=== PATIENT | male | born 1975 | race Caucasian/White ===

== ENCOUNTER → 2017-04-04 07:47 | Outpatient (CLI) | payer BC, MEDICAID, SELFPAY ==
--- NOTE | 2017-04-04 10:22 | EEG ---
- Electroencephalogram This is a right lower extremity EMG and nerve conduction study performed on this 41-year-old male with intermittent abnormal sensations in the second third and fourth digits of his right foot usually at rest, but also when he is ambulatory. He has no back pain, and is healthy otherwise. Symptoms been present for approximately 6 months. Right lower extremity sensory and motor nerve conduction study is performed. The sural sensory responses normal. The motor responses from the common peroneal and tibial nerves are normal. Peroneal and tibial motor responses are normal and the sensory response from the medial and lateral plantar nerves are also normal. H reflex responses are normal. Right lower extremity needle electromyography was performed. Muscles evaluated included the extensor digitorum brevis, abductor hallucis, medial gastrocnemius, anterior tibialis, vastus lateralis and vastus medialis muscles. All muscles demonstrated normal insertional activity with absence of pathologic spontaneous activity. Motor unit potential recruitment pattern and amplitude was normal in all muscles tested. Impression: Normal electrophysiologic studies of the right lower extremity. Further investigation could include neuroimaging of the BUSINESS ASSISTANT if this is felt to be clinically indicated.
--- NOTE | 2017-04-04 10:25 | EEG_ITS ---
- Electroencephalogram This is a right lower extremity EMG and nerve conduction study performed on this 41-year-old male with intermittent abnormal sensations in the second third and fourth digits of his right foot usually at rest, but also when he is ambulatory. He has no back pain, and is healthy otherwise. Symptoms been present for approximately 6 months. Right lower extremity sensory and motor nerve conduction study is performed. The sural sensory responses normal. The motor responses from the common peroneal and tibial nerves are normal. Peroneal and tibial motor responses are normal and the sensory response from the medial and lateral plantar nerves are also normal. H reflex responses are normal. Right lower extremity needle electromyography was performed. Muscles evaluated included the extensor digitorum brevis, abductor hallucis, medial gastrocnemius , anterior tibialis, vastus lateralis and vastus medialis muscles. All muscles demonstrated normal insertional activity with absence of pathologic spontaneous activity. Motor unit potential recruitment pattern and amplitude was normal in all muscles tested. Impression: Normal electrophysiologic studies of the right lower extremity. Further investigation could include neuroimaging of the POULTRY PROCESSOR if this is felt to be clinically indicated.
--- NOTE | 2017-04-04 10:33 | NEURO_ITS ---
NCS and/or EMG Patient Report Ordering Doctor: Dianna Littlejohn DATE OF SERVICE: 04/04/17 This is a right lower extremity EMG and nerve conduction study performed on this 41-year-old male with intermittent abnormal sensations in the second third and fourth digits of his right foot usually at rest, but also when he is ambulatory. He has no back pain, and is healthy otherwise. Symptoms been present for approximately 6 months. Right lower extremity sensory and motor nerve conduction study is performed. The sural sensory responses normal. The motor responses from the common peroneal and tibial nerves are normal. Peroneal and tibial motor responses are normal and the sensory response from the medial and lateral plantar nerves are also normal. H reflex responses are normal. Right lower extremity needle electromyography was performed. Muscles evaluated included the extensor digitorum brevis, abductor hallucis, medial gastrocnemius , anterior tibialis, vastus lateralis and vastus medialis muscles. All muscles demonstrated normal insertional activity with absence of pathologic spontaneous activity. Motor unit potential recruitment pattern and amplitude was normal in all muscles tested. Impression: Normal electrophysiologic studies of the right lower extremity. Further investigation could include neuroimaging of the SHOE REPAIRER APPRENTICE if this is felt to be clinically indicated.
== END ==
DX: R20.0 Anesthesia of skin (principal)
CPT/HCPCS: 95886; 95910

== ENCOUNTER → 2017-04-11 08:23 | Outpatient (CLI) | payer BC, MEDICAID, SELFPAY ==
[2017-04-11 09:47] LABS: Absolute Lymphocyte Count 1.76 X10^3/ul (0.83-4.51); Absolute Neutrophil Count 1.8 X10^3/uL (2.0-7.7); Basophil# 0.08 X10^3/uL; Basophil% 1.9 % (0-1); Eosinophil# 0.14 X10^3/uL; Eosinophils% 3.4 % (0-5); Hematocrit 42.5 % (40-54); Lymphocyte # 1.76 X10^3/ul (4.0); Lymphocyte % 42.3 % (19-41); Mean Corp Hgb Conc 35.3 g/gl (32-36); Mean Corpuscular Hgb 31.8 pg (27.0-32.0); Mean Corpuscular Volume 90.2 fL (80-94); Mean Platelet Vol. 10.3 fl (6.2-12.0); Monocyte# 0.36 X10^3/uL; Monocyte% 8.7 % (0-10); Neutrophil % 43.2 % (47-70); POSITIVE COUNT NO; POSITIVE DIFFERENTIAL NO; POSITIVE MORPHOLOGY NO; Platelet Count 258 K/mm3 (150-450); RBC Distribution Width CV 12.8 % (11.6-14.6); RBC Distribution Width SD 41.6 fl (35.1-43.9); Red Blood Count 4.71 M/mm3 (4.6-6.2); White Blood Count 4.2 K/mm3 (4.4-11.0)
[2017-04-11 11:07] LABS: AST(SGOT) 20 U/L (15-37); Alanine Aminotransfer ALT/SGPT 42 U/L (16-61); Albumin, Serum 3.8 g/dL (3.2-5.0); Alkaline Phosphatase 96 U/L (45-117); Anion Gap 8 (5-15); BUN 17 mg/dL (7-18); BUN/Creat Ratio 20.5 RATIO (10-20); Bilirubin, Direct 0.06 mg/dL (0.00-0.30); Chloride 109 mmol/L (98-107); Creatinine, Serum 0.83 mg/dL (0.70-1.30); EST Glomerular Filtration Rate 107 mL/min (>60); Est Glom Filt Rate - Afr Amer 130 mL/min (>60); Globulin 3.6 g/dL (2.2-4.2); Glucose 121 mg/dL (74-106); Potassium 3.7 mmol/L (3.5-5.1); Protein, Total 7.4 g/dL (6.4-8.2); Sodium Level 142 mmol/L (136-145)
[2017-04-13 09:32] LABS: HIV-1 RNA by PCR, Quant. < 20 copies/mL (.)
[2017-04-16 01:50] LABS: Rapid Plasmin Reagin (RPR) REACTIVE (NONREACTIVE)
== END ==
PROVIDERS: Visit Provider Internal Medicine Infectious Disease
DX: B20 Human immunodeficiency virus [HIV] disease (principal)
CPT/HCPCS: 80048; 80076; 85025; 86592; 87536

== ENCOUNTER 2017-05-04 07:05 | Emergency (ER) | payer BC, MEDICAID, SELFPAY ==
[2017-05-04 07:05] VITALS: BP 156/98; PULSE 92; RESP 18; TEMP 36.4; O2SAT 100; BMI 33.9
[2017-05-04 07:13] VITALS: BP 96/75; PULSE 91; RESP 14; O2SAT 100
[2017-05-04 07:20] LABS: Bedside Glucose 105 mg/dL (70-110)
--- NOTE | 2017-05-04 07:34 | CT_ITS ---
STUDY: CT BRAIN WITHOUT CONTRAST REASON FOR EXAM: Male, 41 years old. Right arm numbness RADIATION DOSAGE (If Supplied By Facility): CTDIvol = ( 44.99 ) mGy, DLP = ( 745.49 ) mGycm TECHNIQUE: Transaxial CT imaging of the brain was performed without administration of intravenous contrast material. Individualized dose optimization techniques were used for this CT. COMPARISON: 01/09/2015 FINDINGS: Normal soft tissue structures. Normal calvarium. Normal size ventricles and extra-axial spaces for the patient's age. Normal white matter tracts of the cerebral hemispheres. Normal basal ganglia and thalami. Normal brainstem. Normal cerebellum. There is no intracranial hemorrhage. There are no findings of an acute ischemic infarction. There is mucoperiosteal inflammatory disease of the paranasal sinuses consistent with mild chronic sinusitis. CT/Brain/Head without Contrast IMPRESSION: Normal unenhanced CT scan of the brain. Paranasal sinus disease Electronically Signed: Kyle Paris DO at 8:24 EST Tel , Service support ,
--- NOTE | 2017-05-04 07:34 | EKG12_ITS ---
Test Reason : NUMBNESS Blood Pressure : / mmHG Vent. Rate : 086 BPM Atrial Rate : 086 BPM P-R Int : 168 ms QRS Dur : 104 ms QT Int : 354 ms P-R-T Axes : 014 004 030 degrees QTc Int : 423 ms Normal sinus rhythm Normal ECG Confirmed by ISAURO GIL, SHANTA ([id number]), newspaper managing editor FER GOLDEN ([id number]) on 05/08/2017 2:29:49 PM Referred By: WOLFGANG/JONO Confirmed By:SHANTA BOX MD
[2017-05-04 07:50] LABS: Absolute Lymphocyte Count 2.33 X10^3/ul (0.83-4.51); Absolute Neutrophil Count 4.6 X10^3/uL (2.0-7.7); Basophil# 0.04 X10^3/uL; Basophil% 0.5 % (0-1); Eosinophil# 0.19 X10^3/uL; Eosinophils% 2.5 % (0-5); Hematocrit 43.9 % (40-54); Hemoglobin 15.5 g/dl (13.0-16.5); Lymphocyte # 2.33 X10^3/ul (4.0); Lymphocyte % 30.1 % (19-41); Mean Corp Hgb Conc 35.3 g/gl (32-36); Mean Corpuscular Hgb 32.4 pg (27.0-32.0); Mean Corpuscular Volume 91.6 fL (80-94); Mean Platelet Vol. 9.9 fl (6.2-12.0); Monocyte# 0.55 X10^3/uL; Monocyte% 7.1 % (0-10); Neutrophil # 4.62 X10^3/uL (2.7-7.7); Neutrophil % 59.5 % (47-70); Platelet Count 237 K/mm3 (150-450); RBC Distribution Width CV 12.7 % (11.6-14.6); RBC Distribution Width SD 42.4 fl (35.1-43.9); Red Blood Count 4.79 M/mm3 (4.6-6.2); White Blood Count 7.8 K/mm3 (4.4-11.0)
[2017-05-04 07:51] LABS: POSITIVE COUNT NO; POSITIVE DIFFERENTIAL NO; POSITIVE MORPHOLOGY NO
--- NOTE | 2017-05-04 07:55 | RAD_ITS ---
STUDY: X-RAY CHEST REASON FOR EXAM: Male, 41 years old. Numbness down the right arm TECHNIQUE: PA and lateral views of the chest. COMPARISON: 03/31/2016 FINDINGS: The lungs are clear and expanded. There is no demonstrated pleural abnormality. Normal size heart. Normal mediastinum and robert. Normal visualized pulmonary arteries. Normal visualized aortic arch and descending thoracic aorta. Normal visualized thoracic spine. Normal visualized ribs, clavicles, and shoulders. There is no demonstrated abnormality of the visualized soft tissue structures of the upper abdomen. RAD/Chest PA and Lateral IMPRESSION: Normal x-ray examination of the chest. Electronically Signed: Kyle Paris DO at 8:23 EST Tel , Service support ,
[2017-05-04 07:59] LABS: ALB/GLOB Ratio 1.1 RATIO (0.9-2.4); AST(SGOT) 22 U/L (15-37); Alanine Aminotransfer ALT/SGPT 41 U/L (16-61); Alkaline Phosphatase 106 U/L (45-117); Anion Gap 9 (5-15); BUN 13 mg/dL (7-18); BUN/Creat Ratio 16.4 RATIO (10-20); Calcium,Total 8.6 mg/dL (8.5-10.1); Chloride 108 mmol/L (98-107); EST Glomerular Filtration Rate 113 mL/min (>60); Est Glom Filt Rate - Afr Amer 137 mL/min (>60); Estimated Creatinine Clearance 108.55 ml/min; Globulin 3.8 g/dL (2.2-4.2); Glucose 107 mg/dL (74-106); Potassium 4.1 mmol/L (3.5-5.1); Protein, Total 7.8 g/dL (6.4-8.2); Sodium Level 140 mmol/L (136-145)
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
[2017-05-04 08:21] VITALS: BP 118/91; PULSE 98; RESP 22; O2SAT 94
[2017-05-04 09:10] VITALS: BP 142/91; PULSE 89; RESP 17; O2SAT 96
[2017-05-04 09:16] LABS: Bacteria 0 SEEN /hpf (None Seen); Mucous, Urine 0 SEEN /hpf (<or=2+); Red Blood Cells-Urine 0 SEEN /hpf (0-5); Squamous Epithelial Cells - UA 0 SEEN /hpf (0-5); White Blood Cells 0 SEEN /hpf (0-5)
[2017-05-04 09:19] LABS: Color, Urine Yellow (Yellow); Glucose, Dipstick Normal (Normal); Ketone-Dipstick Negative (Negative); Leukocyte Esterase-Dipstick Negative /ul (Negative); Nitrite-Dipstick Negative (Negative); Occult Blood-Urine Negative /ul (Negative); Protein-Dipstick Negative (Negative); Urine Bilirubin Dipstick Negative (Negative); Urine Clarity Clear (Clear); Urine Urobilinogen Normal (Normal)
[2017-05-04 10:20] VITALS: BP 121/97; PULSE 96; RESP 18; O2SAT 97
== END 2017-05-04 10:25 | disposition home or self-care (01) ==
PROVIDERS: Emergency Provider Emergency Medicine
DX: R20.2 Paresthesia of skin (principal); R32 Unspecified urinary incontinence; R51 Headache; I10 Essential (primary) hypertension; B20 Human immunodeficiency virus [HIV] disease; Z79.899 Other long term (current) drug therapy
CPT/HCPCS: 70450; 71046; 80053; 81001; 82962; 85025; 93005; 99284; A4216

== ENCOUNTER 2017-10-25 15:10 | Emergency (ER) | payer BC, SELFPAY ==
[2017-10-25 15:11] VITALS: BP 142/95; PULSE 110; RESP 16; TEMP 37.1; O2SAT 98
[2017-10-25 15:16] VITALS: BMI 36.9
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
[2017-10-25 17:39] VITALS: BP 143/89; PULSE 84; RESP 16; O2SAT 98
== END 2017-10-25 17:39 | disposition home or self-care (01) ==
LOC: ED 16:33
PROVIDERS: Emergency Provider Emergency Medicine
DX: S16.1XXA Strain of muscle, fascia and tendon at neck level, initial encounter (principal); S46.911A Strain of unspecified muscle, fascia and tendon at shoulder and upper arm level, right arm, initial encounter; I10 Essential (primary) hypertension; E78.00 Pure hypercholesterolemia, unspecified; B20 Human immunodeficiency virus [HIV] disease; Z87.891 Personal history of nicotine dependence; Z79.899 Other long term (current) drug therapy; V43.52XA Car driver injured in collision with other type car in traffic accident, initial encounter; Y93.I9 Activity, other involving external motion; Y92.410 Unspecified street and highway as the place of occurrence of the external cause; Y99.8 Other external cause status
CPT/HCPCS: 71101; 72125; 73030; 74177; 99284; Q9967

== ENCOUNTER → 2017-12-18 09:49 | Outpatient (CLI) | payer BC, SELFPAY ==
[2017-12-18 11:05] LABS: Absolute Lymphocyte Count 2.07 X10^3/ul (0.83-4.51); Absolute Neutrophil Count 3.4 X10^3/uL (2.0-7.7); Basophil# 0.08 X10^3/uL; Basophil% 1.3 % (0-1); Eosinophil# 0.19 X10^3/uL; Eosinophils% 3.1 % (0-5); Hematocrit 42.3 % (40-54); Hemoglobin 14.6 g/dl (13.0-16.5); Lymphocyte # 2.07 X10^3/ul (4.0); Lymphocyte % 33.9 % (19-41); Mean Corp Hgb Conc 34.5 g/gl (32-36); Mean Corpuscular Hgb 31.7 pg (27.0-32.0); Mean Platelet Vol. 9.8 fl (6.2-12.0); Monocyte# 0.35 X10^3/uL; Monocyte% 5.7 % (0-10); Neutrophil % 55.8 % (47-70); Platelet Count 277 K/mm3 (150-450); RBC Distribution Width CV 12.2 % (11.6-14.6); RBC Distribution Width SD 40.9 fl (35.1-43.9); White Blood Count 6.1 K/mm3 (4.4-11.0)
[2017-12-18 11:19] LABS: POSITIVE COUNT NO; POSITIVE DIFFERENTIAL NO; POSITIVE MORPHOLOGY NO
[2017-12-18 11:27] LABS: AST(SGOT) 18 U/L (15-37); Alanine Aminotransfer ALT/SGPT 36 U/L (16-61); Albumin, Serum 3.8 g/dL (3.2-5.0); Alkaline Phosphatase 100 U/L (45-117); Anion Gap 8 (5-15); BUN 14 mg/dL (7-18); BUN/Creat Ratio 16.8 RATIO (10-20); Bilirubin, Direct 0.09 mg/dL (0.00-0.30); Calcium,Total 8.3 mg/dL (8.5-10.1); Chloride 108 mmol/L (98-107); Creatinine, Serum 0.83 mg/dL (0.70-1.30); EST Glomerular Filtration Rate 107 mL/min (>60); Est Glom Filt Rate - Afr Amer 129 mL/min (>60); Globulin 3.4 g/dL (2.2-4.2); Glucose 130 mg/dL (74-106); Protein, Total 7.2 g/dL (6.4-8.2); Sodium Level 141 mmol/L (136-145)
[2017-12-19 14:30] LABS: Absolute CD4 Helper 577 /uL (359-1519); Basophils (Absolute) 0.1 x10E3/uL (0.0-0.2); Eosinophils 3 % (Not Estab.); Eosinophils (Absolute) 0.2 x10E3/uL (0.0-0.4); Hematocrit 42.4 % (37.5-51.0); Hemoglobin 14.4 g/dL (13.0-17.7); Immature Granulocytes 0 % (Not Estab.); Immature Granulocytes Absolute 0 x10E3/uL (0.0-0.1); Lymphs 35 % (Not Estab.); Lymphs (Absolute) 2.3 x10E3/uL (0.7-3.1); MCH 31.8 pg (26.6-33.0); MCV 94 fL (79-97); Monocytes 5 % (Not Estab.); Monocytes (Absolute) 0.3 x10E3/uL (0.1-0.9); Neutrophils 56 % (Not Estab.); Neutrophils (Absolute) 3.7 x10E3/uL (1.4-7.0); Percent % CD4 Pos. Lymph. 25.1 % (30.8-58.5); Platelets 292 x10E3/uL (150-379); RBC Count 4.53 x10E6/uL (4.14-5.80); RDW 13.1 % (12.3-15.4); WBC Count 6.6 x10E3/uL (3.4-10.8)
[2017-12-19 14:46] LABS: Hep C Antibodies <0.1 s/co ratio (0.0-0.9)
[2017-12-21 12:41] LABS: HIV-1 RNA by PCR, Quant. 60 copies/mL (.); LOG10 HIV-1 RNA 1.778 (.)
== END ==
PROVIDERS: Referring Provider Internal Medicine Infectious Disease; Visit Provider Internal Medicine Infectious Disease
DX: B20 Human immunodeficiency virus [HIV] disease (principal)
CPT/HCPCS: 36415; 80048; 80076; 85025; 86361; 86803; 87536

== ENCOUNTER → 2018-07-20 | Outpatient (CLI) | payer BC, SELFPAY | END | disposition home or self-care (01) | LOC: SL 12:53 | PROVIDERS: Referring Provider Internal Medicine Infectious Disease; Visit Provider Internal Medicine Infectious Disease | DX: Z46.89 Encounter for fitting and adjustment of other specified devices (principal) ==

== ENCOUNTER 2020-05-20 19:19 | Emergency (ER) | payer MEDICAID, SELFPAY ==
[2020-05-20 19:20] VITALS: BP 155/95; PULSE 104; RESP 18; TEMP 35.9; O2SAT 99; BMI 33.4
--- NOTE | 2020-05-20 20:09 | ED.DCSUM_ITS ---
History of Present Illness Chief Complaint: Dental Informant: Patient Onset: Days Context: Sudden Onset Timing: Continuous Quality: Numbness and pain left jaw Location: Left lower bicuspids and first molar tooth #20, 21 and 22 Current Severity: Mild Maximum Severity: Moderate Worsened by: Hot food Relieved by: - - States drinking cold water makes it feel better Associated Symptoms: Jaw Swelling, Facial Swellling Narrative: He denies inability to open or close his mouth. He denies fever, chills night sweats. He denies change in voice. He denies drooling. He denies rheumatic fever, heart murmur or being immune suppressed. States he has an appointment with dentist next week. He has allergies to penicillin-like antibiotics. He denies rash or lesions. Prior similar symptoms: No Recent Illness/Hospitalization: No - Past Medical History (1) Hypothyroidism Status: Acute (2) HIV (human immunodeficiency virus infection) Status: Chronic (3) Obesity (BMI 30-39.9) Status: Chronic (4) Hypertension Status: Ruled-out Comment: Noted well controlled BP off regimen x 5 years. Past Medical History - Allergies and Home Meds Allergies/Adverse Reactions: Allergies amoxicillin Allergy (Verified 05/20/20 19:23) Rash amoxicillin trihydrate [From Augmentin] Allergy (Verified 05/20/20 19:23) Hives potassium clavulanate [From Augmentin] Allergy (Verified 05/20/20 19:23) Hives adhesive Adverse Reaction (Verified 05/20/20 19:23) Itching Primary Care Physician: Dianna Littlejohn DO [Primary Care Provider] - Prior records reviewed: Yes - Has history of HIV. Surgical History: cholecystectomy, - - BL carpal tunnel surgery. Lives: Alone Smoking Status: Former smoker Alcohol: Rare Drugs: None - Family History Maternal Family History: Reports: Cancer - Mother w/ thyroid cancer. Paternal Family History: Reports: Diabetes, Heart Disease - his father's brothers from heart attacks at the age<50. Review of Systems General: Denies: Chills, Fever, Malaise Eyes: Denies: Visual changes - bilaterally, Blurred Vision - bilaterally ENT: Reports: - - Please read HPI. Denies: Bilateral ear pain, Rhinorrhea, Sore throat Skin: Denies: Rash, Wounds Neurological: Denies: Headache, Weakness Hematologic: Denies: Easy bruising, Easy bleeding Physical Exam Vital Signs/Narrative: Vital Signs Temp Pulse Resp BP Pulse Ox 05/20/20 19:20 96.7 F L 104 H 18 155/95 H 99 Inital Vital Signs reviewed: Yes General: Well nourished, Well developed, Obese Head: Normocephalic, Atraumatic ENT: Moist mucous membranes, No nasal trauma, No rhinorrhea Mouth/Throat: Normal oral mucosa, Normal posterior oropharynx, Normal Stensen's duct, Dental abscess, Gingivitis, Tenderness on tooth percussion, Widespread dental decay - And has cavity is exposure of pulp involving tooth #20, 21 and 22. There is swelling of his jaw., - - Of tongue reveals no abnormality valving the floor. There is no clinical evidence of Ludewig's angina.. Negative for: Normal inspection lips/gums, No dental tenderness, No sublingual edema, Apthous ulcer, Dental trauma, Trismus Neck: Supple, Nontender, No JVD, Posterior submandibular lymphadenopathy, Soft tissue swelling, Submandibular soft tissue swelling, - - He is midline. There is no inspiratory or expiratory stridor.. Negative for: No lymphadenopathy, Anterior submandibular lymphadenopathy, Anterior submental lymphadenopathy, Parotid tenderness Cardiovascular: Regular rhythm, No murmurs, Normal S1, Normal S2, Tachycardia Respiratory: No distress, CTA bilaterally Skin: Normal color, No rash. Negative for: Cyanosis, Diaphoresis, Jaundice Neurological: Alert, Oriented x3, Cranial nerves II-XII grossly intact, Normal Strength, Normal Sensation Psychological: Normal affect, Normal Mood Diagnostic/Tx/Re-eval - Medical Decision Making Has dental abscess. Patient was treated with clindamycin, NSAID and opiate analgesia. Nuclear is no evidence of Ludewig's angina. He has no trismus. ED Disposition - Plan for ED Patient: Disposition: Home or Assisted Living Diagnosis: Dental caries extending into pulp, Dental abscess Instructions: Dental Abscess Prescriptions: Clindamycin HCl [Cleocin] 300 mg PO Q6H #28 capsule Prescription Printed Naproxen [Naprosyn] 500 mg PO BID #14 tablet Prescription Printed Hydrocodone Bitart/Apap 5-325 [[place] 5MG-325MG] 1 tablet PO Q6H PRN PRN 3 Days #10 tab PRN Reason: Pain Prescription Printed Referrals: Dianna Littlejohn DO [Primary Care Provider] -
[2020-05-20] MEDS: Naproxen 250 MG Tablet 500 MG PO (20:23)
[2020-05-20] MEDS: Clindamycin HCl 150 MG Capsule 300 MG PO (20:23)
[2020-05-20 20:24] VITALS: PULSE 110; RESP 16; O2SAT 99
[2020-05-20] MEDS: HYDROcodone Bitartrate/Apap 5/325 Tablet PO (20:24)
== END 2020-05-20 20:27 | disposition home or self-care (01) ==
LOC: ED 20:25
PROVIDERS: Emergency Provider Emergency Medicine
DX: K02.9 Dental caries, unspecified (principal); K04.7 Periapical abscess without sinus; E66.9 Obesity, unspecified; I10 Essential (primary) hypertension; Z90.49 Acquired absence of other specified parts of digestive tract; Z87.891 Personal history of nicotine dependence; Z21 Asymptomatic human immunodeficiency virus [HIV] infection status
CPT/HCPCS: 99283

== ENCOUNTER → 2021-12-03 | Outpatient (CLI) | payer MEDICAID, SELFPAY ==
[2021-12-03 09:57] LABS: Absolute Lymphocyte Count 1.46 X10^3/uL (0.83-4.51); Absolute Neutrophil Count 2.1 X10^3/uL (2.0-7.7); Basophil# 0.06 X10^3/uL; Basophil% 1.4 % (0-1); Eosinophil# 0.13 X10^3/uL; Eosinophils% 2.9 % (0-5); Hematocrit 37.9 % (40-54); Hemoglobin 12.8 g/dL (13.0-16.5); Lymphocyte # 1.46 X10^3/ul (0.83-4.51); Lymphocyte % 33.1 % (19-41); Mean Corp Hgb Conc 33.8 g/dL (32-36); Mean Corpuscular Hgb 31.8 pg (27.0-32.0); Mean Corpuscular Volume 94.3 fL (80-94); Mean Platelet Vol. 9.4 fl (6.2-12.0); Monocyte# 0.64 X10^3/uL; Monocyte% 14.5 % (0-10); NRBC Flagged by Analyzer 0 % (0-5); Neutrophil # 2.08 X10^3/uL (2.7-7.7); Neutrophil % 47.2 % (47-70); Platelet Count 263 K/mm3 (150-450); RBC Distribution Width CV 12.6 % (11.6-14.6); RBC Distribution Width SD 43.9 fl (35.1-43.9); Red Blood Count 4.02 M/mm3 (4.6-6.2); White Blood Count 4.4 K/mm3 (4.4-11.0)
[2021-12-03 10:27] LABS: Hemoglobin A1c 4.9 % (3.8-5.6)
[2021-12-03 10:31] LABS: ALB/GLOB Ratio 0.9 RATIO (0.9-2.4); AST(SGOT) 16 U/L (15-37); Alanine Aminotransfer ALT/SGPT 45 U/L (16-61); Albumin, Serum 3.5 g/dL (3.2-5.0); Alkaline Phosphatase 120 U/L (45-117); Anion Gap 5 (5-15); BUN 14 mg/dL (7-18); BUN/Creat Ratio 18.4 RATIO (10-20); Calcium,Total 8.7 mg/dL (8.5-10.1); Chloride 109 mmol/L (98-107); Cholesterol 151 mg/dL (200); Creatinine, Serum 0.76 mg/dL (0.70-1.30); EST Glomerular Filtration Rate 116 mL/min (>60); Est Glom Filt Rate - Afr Amer 141 mL/min (>60); Globulin 3.9 g/dL (2.2-4.2); Glucose 106 mg/dL (74-106); High Density Lipoprotein 36 mg/dL; Potassium 4.2 mmol/L (3.5-5.1); Protein, Total 7.4 g/dL (6.4-8.2); Sodium Level 138 mmol/L (136-145); Thyroid Stim Hormone (TSH) 2.45 uIU/mL (0.358-3.74); Triglycerides 121 mg/dL; Very Low Density Lipoprotein 24 mg/dL (5-40)
[2021-12-03 11:10] LABS: Hepatitis C Antibody Non-Reactive (Nonreactive); Syphilis Antibodies Reactive
[2021-12-06 14:35] LABS: HIV-1 RNA by PCR, Quant. 80 copies/mL (.); LOG10 HIV-1 RNA 1.903 (.)
[2021-12-06 15:08] LABS: Absolute CD3 1226 /uL (622-2402); Basophils (Absolute) 0.1 x10E3/uL (0.0-0.2); Eosinophils 3 % (Not Estab.); Eosinophils (Absolute) 0.1 x10E3/uL (0.0-0.4); Hematocrit 37.3 % (37.5-51.0); Hemoglobin 12.7 g/dL (13.0-17.7); Lymphs 34 % (Not Estab.); Lymphs (Absolute) 1.5 x10E3/uL (0.7-3.1); MCH 31.8 pg (26.6-33.0); MCV 93 fL (79-97); Monocytes 16 % (Not Estab.); Monocytes (Absolute) 0.7 x10E3/uL (0.1-0.9); Neutrophils 46 % (Not Estab.); Percent % CD3 Pos. Lymph. 81.7 % (57.5-86.2); Platelets 264 x10E3/uL (150-450); RDW 12.2 % (11.6-15.4); WBC Count 4.5 x10E3/uL (3.4-10.8)
== END | disposition home or self-care (01) ==
PROVIDERS: Visit Provider Internal Medicine Infectious Disease
DX: B20 Human immunodeficiency virus [HIV] disease (principal)
CPT/HCPCS: 36415; 80053; 80061; 83036; 84443; 85025; 86359; 86780; 86803; 87536

== ENCOUNTER 2022-07-19 08:10 | Emergency (ER) | payer MEDICAID, SELFPAY ==
[2022-07-19 08:11] VITALS: BP 136/79; PULSE 101; RESP 18; TEMP 36.2; O2SAT 99; BMI 35.4
--- NOTE | 2022-07-19 08:29 | EKG12_ITS ---
Test Reason : PALPS Blood Pressure : / mmHG Vent. Rate : 089 BPM Atrial Rate : 089 BPM P-R Int : 164 ms QRS Dur : 102 ms QT Int : 350 ms P-R-T Axes : 000 007 023 degrees QTc Int : 425 ms Normal sinus rhythm Possible Inferior infarct , age undetermined Abnormal ECG Confirmed by ISAURO GIL, SHANTA ([id number]), loan expeditor KRISTIAN AARON ([id number]) on 07/21/2022 8:51:07 AM Referred By: FRANCISCO Confirmed By:SHANTA BOX MD
--- NOTE | 2022-07-19 08:30 | EDS_ITS ---
HPI History of Present Illness Chief Complaint: Palpitations Informant: patient Onset/Context/Timing Onset: Yesterday Narrative Narrative: Patient presents secondary to palpitations. He states all night his watch was reading a heart rate between 120 and 157. He felt like his heart was racing. He states about an hour ago his heart rate came down to around 100. He reports shortness of breath for the last several weeks. He denies chest pain. [facility] Medical History Cubital tunnel syndrome on left HIV (human immunodeficiency virus infection) Hypertension Hypothyroidism Left carpal tunnel syndrome Home Medications lisinopril 10 mg tablet 10 mg PO DAILY 10/25/17 [History Last Taken Unknown] atorvastatin 10 mg tablet 10 mg PO QHS 05/20/20 [History Last Taken Unknown] escitalopram oxalate 10 mg tablet 10 mg PO DAILY 05/20/20 [History Last Taken Unknown] Allergy/AdvReac Type Severity Reaction Status Date / Time amoxicillin Allergy Rash Verified 07/19/22 08:34 amoxicillin trihydrate Allergy Hives Verified 07/19/22 08:34 [From Augmentin] potassium clavulanate Allergy Hives Verified 07/19/22 08:34 [From Augmentin] adhesive AdvReac Itching Verified 07/19/22 08:34 Family History Father Diabetes Hypertension Congestive heart failure (CHF) Myocardial infarction Mother Thyroid cancer Surgical History History of carpal tunnel release of both wrists History of cholecystectomy Social History Smoking Status: Current every day smoker tobacco type: cigarettes alcohol intake: never ROS ROS ED Constitutional Constitutional ED: Denies chills or fever(s) Eyes Eyes: Denies change in vision or discharge from eye(s) ENT ENT ED: Denies discharge from eye(s), rhinorrhea or sore throat Cardiovascular Cardiovascular: Reports palpitations and racing heartbeat; Denies chest pain Respiratory/Chest Respiratory/Chest: Reports dyspnea; Denies cough Gastrointestinal Gastrointestinal: Denies abdominal pain, nausea or vomiting Genitourinary Genitourinary ED: Denies dysuria Musculoskeletal Musculoskeletal: Denies back pain or extremity pain Integumentary Denies Abrasions or rash Neurologic Neurologic: Denies headache(s) or weakness Psychiatric Psychiatric: Denies anxiety or depression Allergic/Immunologic Allergic/Immunologic ED: Denies lip swelling or urticaria EXAM Physical Exam Const Vital Signs: 07/19/22 08:11 07/19/22 08:32 Temperature 97.2 F L Temperature Source Temporal Pulse Rate 101 H Respiratory Rate 18 Respiratory Effort Short of Breath Labored Respiratory Pattern Normal Blood Pressure 136/79 H Blood Pressure Mean 98 Pulse Ox 99 Oxygen Delivery Method Room Air Positive well nourished and well developed General Appearance ED: well developed HEENT Reports normocephalic and head/scalp atraumatic Eyes PERRL and EOMs intact bilaterally Neck supple Chest Wall inspection of chest normal and palpation of chest normal Resp normal respiratory effort and clear to auscultation bilaterally Cardio regular rate and regular rhythm GI normal to inspection, nondistended, normoactive bowel sounds Palpation: soft Extremity normal to inspection Neuro oriented x3 and no sensory deficits noted Sensorium / Orientation: alert Motor Exam: strength 5/5 throughout Psych mental status grossly normal Skin no rashes or lesions noted MDM MDM MDM Narrative Medical decision making narrative: Patient placed on monitoring specialist. Labwork obtained to evaluate for leukocytosis, anemia, and electrolyte derangement. EKG obtained to evaluate for cardiac arrhythmia/ischemia. Chest x-ray obtained to evaluate for acute lung pathology, cardiac size, or mediastinal abnormality. History & Record Review Discussion w/independent historian: Patient Lab Data Attestation: I reviewed the patient's lab results. Labs: Laboratory Results - last 24 hr 07/19/22 07/19/22 07/19/22 08:45 08:45 08:45 WBC 4.0 L RBC 4.30 L Hgb 12.5 L Hct 37.3 L MCV 86.7 MCH 29.1 MCHC 33.5 RDW Std Deviation 41.8 RDW Coeff of Libby 13.4 Plt Count 279 MPV 9.8 Immature Gran % (Auto) 0.800 Neut % (Auto) 42.8 L Lymph % (Auto) 39.5 [place] % (Auto) 13.1 H Eos % (Auto) 2.8 Baso % (Auto) 1.0 Absolute Neuts (auto) 1.7 L Absolute Lymphs (auto) 1.57 Nucleated RBC % 0 D-Dimer Quant (PE/DVT) < 0.27 L Sodium 143 Potassium 3.9 Chloride 116 H Carbon Dioxide 21.0 Anion Gap 6 BUN 18 Creatinine 0.84 Estim Creat Clear Calc 97.05 Est GFR (MDRD) Af Amer 125 Est GFR (MDRD) Non-Af 104 BUN/Creatinine Ratio 21.4 H Glucose 150 H Calcium 8.5 Total Bilirubin 0.20 Direct Bilirubin < 0.05 AST 29 ALT 47 Alkaline Phosphatase 115 Troponin I High Sens 4 Total Protein 7.7 Albumin 3.3 Globulin 4.4 H TSH 2.73 Radiography Chest X-Ray - ED: 1 View, Read by ED Physician, Normal, Heart, Lungs and Mediast inum Diagnostic Testing: Clinical Impression(s) from Imaging Studies Chest X-Ray 07/19/22 08:45 IMPRESSION: No acute cardiopulmonary process identified. Electronically Signed: Barbara Michaels MD at 9:06 EDT Reading Location ID and State: [facility] / [place] Tel , Service support , EKG Initial EKG: Attestation: I personally reviewed and interpreted this EKG as follows: Interpretation: Sinus Rhythm (Sinus 89 bpm. No acute ischemia.) Differential Diagnosis Chest pain/SOB: pulmonary embolism Reason(s) PE less likely: Positive for D- Dimer negative, ACS ACS: Positive for no evidence of ACS based on cardiac biomarkers and EKG without ischemia and pneumothorax Reason(s) pneumothorax less likely: Positive for bilateral breath sounds Treatment and Re-Evaluation :: CBC reveals chronic leukopenia and anemia, unchanged from baseline. Chemistry studies are unremarkable. D-dimer is less than 0.27. Troponin is normal at 4 and TSH is normal at 2.73. Portable chest x-ray per my interpretation reveals no acute lung pathology. Radiology interpretation is reviewed and agrees. EKG reveals no ischemia and is sinus rhythm with normal intervals. I did review the patient's monitoring specialist. He is had no arrhythmias while here in the emergency room. I did encourage him to return if he notes palpitations with increased heart rate again so we can catch an episode. If he begins having more frequent episodes but they are brief, I recommend talking to your primary care doctor about getting an event monitor or Holter monitor. Return instructions are given. Discharge Plan Triage Chief Complaint: Palpitations ED Provider: Ashley Castro Dx/Rx/DC Orders Clinical Impression: Palpitations Instructions: ED Palpitations Prescriptions: No Action lisinopril 10 MG tablet 10 mg PO DAILY Label Comments: atorvastatin 10 MG tablet 10 mg PO QHS escitalopram oxalate 10 MG tablet 10 mg PO DAILY Primary Care Provider: Vesna Stockton Referrals: Vesna Stockton [Primary Care Provider] - 1 Week Disposition Disposition: Home, Self Care
--- NOTE | 2022-07-19 08:45 | RAD_ITS ---
HISTORY: sob. TECHNIQUE: XR Chest 1 View. COMPARISON: 10/25/2017. FINDINGS: CARDIOMEDIASTINAL BORDERS: Cardiac silhouette within normal limits in size. Mediastinal contour unremarkable. LUNGS: Radiographically clear. PLEURA: No pleural effusion or pneumothorax seen. OSSEOUS STRUCTURES: Unremarkable. RAD/Chest 1 View (Portable) IMPRESSION: No acute cardiopulmonary process identified. Electronically Signed: Barbara Michaels MD at 9:06 EDT ,
[2022-07-19 08:51] LABS: Absolute Lymphocyte Count 1.57 X10^3/uL (0.83-4.51); Absolute Neutrophil Count 1.7 X10^3/uL (2.0-7.7); Basophil# 0.04 X10^3/uL; Eosinophil# 0.11 X10^3/uL; Eosinophils% 2.8 % (0-5); Hematocrit 37.3 % (40-54); Hemoglobin 12.5 g/dL (13.0-16.5); Lymphocyte # 1.57 X10^3/ul (0.83-4.51); Lymphocyte % 39.5 % (19-41); Mean Corp Hgb Conc 33.5 g/dL (32-36); Mean Corpuscular Hgb 29.1 pg (27.0-32.0); Mean Corpuscular Volume 86.7 fL (80-94); Mean Platelet Vol. 9.8 fl (6.2-12.0); Monocyte# 0.52 X10^3/uL; Monocyte% 13.1 % (0-10); NRBC Flagged by Analyzer 0 % (0-5); Neutrophil % 42.8 % (47-70); Platelet Count 279 K/mm3 (150-450); RBC Distribution Width CV 13.4 % (11.6-14.6); RBC Distribution Width SD 41.8 fl (35.1-43.9)
[2022-07-19 09:11] VITALS: BP 122/81; PULSE 96; RESP 18; O2SAT 99
[2022-07-19 09:21] LABS: AST(SGOT) 29 U/L (15-37); Alanine Aminotransfer ALT/SGPT 47 U/L (16-61); Albumin, Serum 3.3 g/dL (3.2-5.0); Alkaline Phosphatase 115 U/L (45-117); Anion Gap 6 (5-15); BUN 18 mg/dL (7-18); BUN/Creat Ratio 21.4 RATIO (10-20); Bilirubin, Direct < 0.05 mg/dL (0.00-0.30); Calcium,Total 8.5 mg/dL (8.5-10.1); Chloride 116 mmol/L (98-107); Creatinine, Serum 0.84 mg/dL (0.70-1.30); EST Glomerular Filtration Rate 104 mL/min (>60); Est Glom Filt Rate - Afr Amer 125 mL/min (>60); Estimated Creatinine Clearance 97.05 ml/min; Globulin 4.4 g/dL (2.2-4.2); Glucose 150 mg/dL (74-106); Potassium 3.9 mmol/L (3.5-5.1); Protein, Total 7.7 g/dL (6.4-8.2); Sodium Level 143 mmol/L (136-145); Thyroid Stim Hormone (TSH) 2.73 uIU/mL (0.358-3.74); Troponin-I HS 4 pg/mL (3.0-78.0)
[2022-07-19 09:22] LABS: D-Dimer Quantitative (DVT/PE) < 0.27 FEU/ug/m (0.27-0.49)
[2022-07-19 10:11] VITALS: BP 127/86; PULSE 99; RESP 16; O2SAT 100
[2022-07-19 10:23] VITALS: BP 134/69; PULSE 71; RESP 16; O2SAT 98
== END 2022-07-19 10:24 | disposition home or self-care (01) ==
PROVIDERS: Emergency Provider Emergency Medicine; Visit Provider Emergency Medicine
DX: R00.2 Palpitations (principal); I10 Essential (primary) hypertension; Z79.899 Other long term (current) drug therapy; Z90.49 Acquired absence of other specified parts of digestive tract; F17.210 Nicotine dependence, cigarettes, uncomplicated
CPT/HCPCS: 71045; 80048; 80076; 84443; 84484; 85025; 85379; 93005; 99283; A4216

== ENCOUNTER 2022-08-11 16:44 | Outpatient (CLI) | payer MEDICAID, SELFPAY ==
[2022-08-11 17:40] LABS: Hematocrit 37.9 % (40-54); Hemoglobin 13.1 g/dL (13.0-16.5); Mean Corp Hgb Conc 34.6 g/dL (32-36); Mean Corpuscular Hgb 29.3 pg (27.0-32.0); Mean Corpuscular Volume 84.8 fL (80-94); Mean Platelet Vol. 9.7 fl (6.2-12.0); Platelet Count 250 K/mm3 (150-450); RBC Distribution Width CV 13.2 % (11.6-14.6); RBC Distribution Width SD 40.8 fl (35.1-43.9); Red Blood Count 4.47 M/mm3 (4.6-6.2); White Blood Count 4.4 K/mm3 (4.4-11.0)
[2022-08-11 18:21] LABS: AST(SGOT) 22 U/L (15-37); Alanine Aminotransfer ALT/SGPT 47 U/L (16-61); Albumin, Serum 3.5 g/dL (3.2-5.0); Alkaline Phosphatase 114 U/L (45-117); Anion Gap 6 (5-15); BUN 15 mg/dL (7-18); BUN/Creat Ratio 16.2 RATIO (10-20); Bilirubin, Direct 0.07 mg/dL (0.00-0.30); Calcium,Total 8.9 mg/dL (8.5-10.1); Chloride 114 mmol/L (98-107); Creatinine, Serum 0.93 mg/dL (0.70-1.30); EST Glomerular Filtration Rate 93 mL/min (>60); Est Glom Filt Rate - Afr Amer 112 mL/min (>60); Globulin 4.6 g/dL (2.2-4.2); Glucose 170 mg/dL (74-106); Potassium 3.9 mmol/L (3.5-5.1); Protein, Total 8.1 g/dL (6.4-8.2); Sodium Level 140 mmol/L (136-145)
[2022-08-11 19:07] LABS: Hepatitis B Surface Antibody Reactive; Syphilis Antibodies Reactive
[2022-08-13 06:09] LABS: HEPATITIS B SURFACE AG Negative (Negative); Hep C Antibodies Non Reactive (Non Reactive); Hepatitis A AB, Total Negative (Negative); Hepatitis A IgM Antibody Negative (Negative); Hepatitis B Core AB IgM Negative (Negative)
[2022-08-15 09:07] LABS: HIV-1 RNA by PCR, Quant. 156000 copies/mL (.); LOG10 HIV-1 RNA 5.193 (.)
== END 2022-08-11 23:59 | disposition home or self-care (01) ==
PROVIDERS: Referring Provider Internal Medicine Infectious Disease; Visit Provider Internal Medicine Infectious Disease
DX: B20 Human immunodeficiency virus [HIV] disease (principal)
CPT/HCPCS: 36415; 80048; 80074; 80076; 85027; 86706; 86708; 86780; 87536

== ENCOUNTER 2022-08-24 09:31 | Day surgery (SDC) | payer MEDICAID, SELFPAY ==
[2022-08-24 10:03] VITALS: BP 131/83; PULSE 85; RESP 16; TEMP 36.8; O2SAT 99; BMI 36.6
[2022-08-24] MEDS: Lactated Ringers 1,000 ML 15 ML IV (10:24)
--- NOTE | 2022-08-24 10:30 | HP.PCM_ITS ---
HPI - General HPI Narrative BECKY JONES, is a 47 M who presents for left carpal tunnel endoscopic release (revision), left elbow cubital tunnel release. no changes to h and p. OK to proceed left elbow and left wrist marked. rab discussed and narcotic counselling. he understands, no further questions. MR#: [id number] Acct: [id number] Name: BECKY JONES Rep #: [id number] : 1975 Provider: Dr. Edilson Copeland MD Age/Sex: 47/M Location: [facility] [place] Status: Signed Intake Vital Signs 07/20/2307:11 Height 5 ft 6 in Weight: 219 lb 6.4 oz BMI 35.4 BP 136/79 H Respiration 18 Pulse 101 H Temp 97.2 F L Temp Source Temporal Pulse Oximetry (%) 99 Intake Visit Reasons: left wrist Is patient in pain?: Yes Allergies amoxicillin Allergy (Verified 08/11/22 10:11) Rashamoxicillin trihydrate [From Augmentin] Allergy (Verified 08/11/22 10:11) Hivespotassium clavulanate [From Augmentin] Allergy (Verified 08/11/22 10:11) Hivesadhesive Adverse Reaction (Verified 08/11/22 10:11) Itching Medications lisinopril 10 mg tablet 10 mg PO DAILY 10/25/17 [History Confirmed 08/11/22] atorvastatin 10 mg tablet 20 mg PO QHS 08/11/22 [History Confirmed 08/11/22] buspirone 10 mg tablet 10 mg PO BID 08/11/22 [History Confirmed 08/11/22] cholecalciferol (vitamin D3) 25 mcg (1,000 unit) tablet 25 mcg PO 08/11/22 [History Confirmed 08/11/22] hydroxyzine HCl 25 mg tablet 25 mg PO BID 08/11/22 [History Confirmed 08/11/22] levothyroxine 25 mcg tablet ea PO 08/11/22 [History Confirmed 08/11/22] omeprazole 40 mg capsule,delayed release 40 mg PO 08/11/22 [History Confirmed 08/11/22] topiramate 25 mg tablet 25 mg PO BID 08/11/22 [History Confirmed 08/11/22] vilazodone 40 mg tablet 40 mg PO 08/11/22 [History Confirmed 08/11/22] [facility] Medical History Cubital tunnel syndrome on left HIV (human immunodeficiency virus infection) Hypertension Hypothyroidism Left carpal tunnel syndrome Surgical History History of carpal tunnel release of both wrists History of cholecystectomy Family History Father Diabetes Hypertension Congestive heart failure (CHF) Myocardial infarctionMother Thyroid cancer Social History Smoking Status: Current every day smoker tobacco type: cigarettes alcohol intake: never HPI left wrist Details: Parts of this documentation were recorded by a scribe, this documentation accurately reflects the service provided and the decisions made by me, Dr. Edilson Copeland MD 08/11/22 1008. BECKY JONES is a 47 year old M here today for follow-up of a left upper extremity nerve conduction studies/EMG. Patient really is getting quite a bit of symptoms into his fourth and fifth digits it is becoming more common and persistent especially in the morning. He is not tolerating the brace or anti- inflammatories. He also had a carpal tunnel release 8 years ago and he feels like the hand is getting little bit more weaker and symptoms into the middle finger as well. Ortho Exam Right Wrist/Hand Skin/Wound: Yes CDI, No Swelling, No Ecchymosis and Yes nail intact Motor: EPL: 5, FDP-2: 5, 1st Dorsal Interosseous: 5 and APB: 5 Sensation: Radial: I, Ulnar: D and Median: D WRIST: positive Tinel's today at both the elbow and the wrist and positive compression test at both the elbow and the wrist. No subluxation of the nerve full elbow and wrist range of motion. 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 2. No electromyographic evidence of an ulnar mononeuropathy is noted. 3. No radicular abnormalities are noted Coding Level of Care Code Off vis,est,level 3 Diagnoses Left carpal tunnel syndrome G56.02 Assessment and Plan Assessment and Plan (1) Left carpal tunnel syndrome: Status: Acute Plan: 47-year-old man with what seems to be a mild recurrence of prior carpal tunnel syndrome that he had released about 8 years ago now. Despite the negative nerve conduction studies he seems to have quite definitive physical exam and subjective symptoms for cubital tunnel syndrome and does report that he sleeps mostly with his elbow in flexion and was not able to tolerate the brace. Talked about all his options again including nonsurgical management. Could consider either starting with a carpal tunnel release revision surgery or doing both cubital AND carpal release as I do have a high clinical suspicion here of cubital tunnel syndrome coexisting with a carpal tunnel syndrome. He wished to go ahead with both surgeries concomitantly. I have booked and consented him for left carpal tunnel endoscopic release (revision), left elbow cubital tunnel release. pros and cons risks and benefits were discussed with the patient including but not limited to infection, pain, stiffness, bleeding, damage to surrounding structures, neurovascular injury, recurrence or retear, failure or wear of hardware or fixation, instability, fracture, deep vein thrombosis and pulmonary embolism, anesthetic risks, , patient dissatisfaction, need for further surgery and other risks. Patient understood and wished to proceed with surgery, and signed the informed consent documentation. [facility] Medical History (Updated 08/18/22 @ 15:18 by Isis Anderson) Anxiety BiPAP (biphasic positive airway pressure) dependence Cubital tunnel syndrome on left Depression GERD (gastroesophageal reflux disease) High cholesterol History of stress test HIV (human immunodeficiency virus infection) Hyperlipidemia Hypertension Hypothyroidism Left carpal tunnel syndrome Major depressive disorder, recurrent severe without psychotic features Sleep apnea Smoker Thyroid disease Wears dentures Wears glasses Home Medications lisinopril 10 mg tablet 10 mg PO DAILY 10/25/17 [History Last Taken Unknown] atorvastatin 10 mg tablet 20 mg PO QHS 08/11/22 [History Last Taken Unknown] buspirone 10 mg tablet 10 mg PO BID 08/11/22 [History Last Taken Unknown] cholecalciferol (vitamin D3) 25 mcg (1,000 unit) tablet 25 mcg PO DAILY 08/11/22 [History Last Taken Unknown] hydroxyzine HCl 25 mg tablet 25 mg PO BID 08/11/22 [History Last Taken Unknown] levothyroxine 25 mcg tablet 25 mcg PO DAILY 08/11/22 [History Last Taken Unknown] montelukast 10 mg tablet 10 mg PO DAILY PRN Allergy Symptoms 08/11/22 [History Last Taken Unknown] omeprazole 40 mg capsule,delayed release 40 mg PO DAILY 08/11/22 [History Last Taken Unknown] topiramate 25 mg tablet 25 mg PO BID 08/11/22 [History Last Taken Unknown] varenicline 0.5 mg (11)-1 mg (42) tablets in a dose pack See Rx Instructions PO PER PKG DIR 08/11/22 [History Last Taken Unknown] vilazodone 40 mg tablet 40 mg PO DAILY 08/11/22 [History Last Taken Unknown] bictegravir 50 mg-emtricitabine 200 mg-tenofovir alafenam 25 mg tablet (Biktarvy) 1 tab PO DAILY 08/18/22 [History Last Taken Unknown] Allergy/AdvReac Type Severity Reaction Status Date / Time amoxicillin Allergy Rash Verified 08/24/22 10:01 amoxicillin trihydrate Allergy Hives Verified 08/24/22 10:01 [From Augmentin] dicyclomine [From Bentyl] Allergy Rash Verified 08/24/22 10:01 potassium clavulanate Allergy Hives Verified 08/24/22 10:01 [From Augmentin] sertraline [From Zoloft] Allergy Rash Verified 08/24/22 10:01 venlafaxine Allergy Rash Verified 08/24/22 10:01 adhesive AdvReac Itching Verified 08/24/22 10:01 topiramate AdvReac Rash Verified 08/24/22 10:01 Family History (Updated 08/11/22 @ 13:30 by Enriqueta Le) Father Diabetes Hypertension Congestive heart failure (CHF) Myocardial infarction Mother Thyroid cancer Uncle Colon cancer Surgical History History of carpal tunnel release of both wrists History of cholecystectomy Social History Smoking Status: Current every day smoker tobacco type: cigarettes alcohol intake: never Vital Signs Vital Signs Vital Signs: 08/24/22 10:03 08/24/22 10:03 Temperature 98.3 F Temperature Source Temporal Pulse Rate 85 Respiratory Rate 16 Respiratory Pattern Normal Blood Pressure 131/83 H Blood Pressure Mean 99 Blood Pressure Source Monitor Blood Pressure Position Sitting Blood Pressure Location Left Arm Pulse Ox 99 Oxygen Delivery Method Room Air Weight Weight: 227 lb 1.218 oz Body Mass Index (BMI) 36.6
[2022-08-24] MEDS: Cefazolin 2 GM in 0.9% Normal Saline 100 ML IV (10:55)
[2022-08-24] MEDS: Bupivacaine 0.25% 30 ML Vial (11:01)
--- NOTE | 2022-08-24 12:01 | OP.PCM_ITS ---
Problems Associated Problem List Diagnoses (1) Cubital tunnel syndrome on left: (2) Left carpal tunnel syndrome: Report of Operation Pre-Operative Diagnosis: left carpal tunnel and cubital tunnel syndrome Post-Operative Diagnosis: same Surgery/Procedure Performed:: Left endoscopic carpal tunnel release revision and left cubital tunnel release Surgeon: Edilson Copeland Type of Anesthesia: General and Local Anesthesiologist: Robin Adams Estimated Blood Loss (mL): 50 Description of Procedure: Patient was brought to the operating room theater.? The patient was administered 2g iv ancef prior to the start of the procedure.? Placed supine on the operating room table.? Anesthesia induced.? SCDs on the legs.? Tourniquet applied to the left upper operative extremity, appropriately padded. Arm table used. Operative extremity prepped and draped in the usual sterile fashion with chlorhexidine- based prep solution allowing over 3 minutes drying time prior to draping.? Preoperative timeout performed to confirm the site patient and the surgery. Limb limb elevated tourniquet inflated to 250 mmHg.? I used the [employer] center line endoscopic carpal tunnel kit / technique. Exsanguinated limb. 4cc 0.25% bupivicaine at incision site. ? I made a transverse 2 cm incision in line with the? transverse wrist crease.? This was in line with the fourth digit.? I carried the dissection down through skin and subcutaneous tissue achieved meticulous hemostasis. Just ulnar to palmaris tendon.? I incised the antebrachial fascia.? I passed sequential dilators into the carpal tunnel along the radial border of the Guyon's canal aiming for the fourth digit with the hand in extension.? I used a synovial elevator to identify the transverse fibers of the transverse carpal tunnel ligament.? Passed the scope into the carpal tunnel. Once I had identified the full proximal and distal extent of the ligament I fully released the ligament under direct visualization by deploying the blade and slowly withdrawing the scope made sequential passes until I no longer felt tension as well as the entire extent of the ligament was released under direct visualization.? Sounded the tunnel with mar tenotomy scissors, complete release, no bands. Arthroscope light was more visible through the skin. Pictures taken and saved. Next turned my attention to the cubital tunnel release at the medial aspect of the elbow. Made a curved incision centered over the ulnar nerve. 10cc 0.25% bupivicaine used. Carried the dissection down through skin and subcutaneous tissue. Achieved meticulous hemostasis. Identified the ulnar nerve proximally. Carried the dissection down distally. There is a strip of medial intermuscular septum that had to be released overlying the nerve seemed like the obvious site of compression although there was moderate amount of scarred tissue to the nerve as well at the mid and distal aspect of the nerve. Released the nerve at all's 5 typical sites of compression including struthers arcade, Lovell's ligament, down distal to the 2 heads of FCU to the first motor branch of ulnar nerve. Nerve stable no subluxation. Wounds thoroughly irrigated.? Tourniquet let down prior to end of the case and meticulous hemostasis achieved.? Thorough irrigation.? ? Incisions closed with 2-0 vicryl and 3-0 Monocryl for the skin.? Steri-Strips were applied after the skin was cleaned and dried. adaptic 4x4 gauze and wisam. Patient woken up,? transferred off the operating room table and taken to postanesthetic care unit in stable condition. All sponge needle instrument counts were correct no complications.? Plan for the patient to be discharged home according to day surgery criteria when they are comfortable. Follow-up in the office in 2 days time. Gentle ROM hand and elbow no heavy lifting. Complications none Admit VTE Documentation VTE Present on Admission: No VTE Mechan Device Prophylaxis: SCD's VTE Pharm Prophylaxis ordered?: No Reason prophylaxis not ordered:: Treatment Not Indicated Procedures Musculoskeletal [id number]-29xxx: Other Procedure See Report
--- NOTE | 2022-08-24 12:08 | EX.PCM.DISCH ---
Discharge Instructions Diet Discharge Diet: No restrictions Activity Weight Bearing Status: Weight bearing as tolerated Additional Activity Instructions:: gentle rom of hand and elbow OK, no heavy lifting or gripping Dressing / Incision Call your doctor if your incision/area has: Continuous Slow Oozing, Sudden Increased Bleeding, Increased Pain/ Swelling, Increased Redness, Foul Smelling Discharge and Swelling at the incision site Change Dressing in: leave in place till F/U Follow Up Care Please Follow Up With: Edilson Copeland MD When: 2 days Test Results: Test results from this visit will be discussed in further detail at your follow-up appointment, if applicable. Discharge Plan Admission Attending Provider: Edilson Copeland [facility] Providers: Alexia Jacobsen NP Discharge Orders/Prescriptions Prescriptions: New oxycodone-acetaminophen [Percocet] 5-325 mg tablet 1 tab PO Q6H MDD 6 PRN (Reason: pain) 5 Days Qty: 14 0RF No Action vilazodone 40 mg tablet 40 mg PO DAILY hydroxyzine HCl 25 mg tablet 25 mg PO BID Patient Comments: take 1 tablet by mouth twice a day for anxiety or itching buspirone 10 mg tablet 10 mg PO BID Patient Comments: take 1 tablet by mouth twice a day topiramate 25 mg tablet 25 mg PO BID Patient Comments: take 1 tablet by mouth twice a day omeprazole 40 mg capsule,delayed release(DR/EC) 40 mg PO DAILY Patient Comments: TAKE 1 CAPSULE BY MOUTH EVERY DAY levothyroxine 25 mcg tablet 25 mcg PO DAILY Patient Comments: take 1 tablet by mouth once daily cholecalciferol (vitamin D3) 25 mcg (1,000 unit) tablet 25 mcg PO DAILY Patient Comments: TAKE 1 TABLET BY MOUTH EVERY DAY montelukast 10 mg tablet 10 mg PO DAILY PRN (Reason: Allergy Symptoms) varenicline 0.5 mg (11)- 1 mg (42) tablets,dose pack See Rx Instructions PO PER PKG DIR Rx Instructions: PO PER PKG DIR lisinopril 10 MG tablet 10 mg PO DAILY Patient Comments: atorvastatin 10 mg tablet 20 mg PO QHS Biktarvy 50-200-25 mg tablet 1 tab PO DAILY Patient Comments: TAKE 1 TABLET BY MOUTH DAILY Referrals / Follow Up: Edilson Copeland MD [Med Staff - Active Staff] - [facility],[place] [Primary Care Provider] - Disposition Disposition (needs filled in before D/C Order can be placed): Home, Self Care
[2022-08-24 12:10] VITALS: BP 131/83; BP 133/92; PULSE 92; RESP 16; TEMP 36.4; O2SAT 91
[2022-08-24 12:15] VITALS: BP 123/94; BP 131/83; PULSE 98; RESP 16; O2SAT 92
[2022-08-24 12:30] VITALS: BP 124/75; BP 131/83; PULSE 92; RESP 92; O2SAT 16
[2022-08-24 12:42] VITALS: BP 119/72; BP 131/83; PULSE 88; RESP 16; TEMP 36.3; O2SAT 93
[2022-08-24] MEDS: Oxycodone/Apap 5/325 Tablet PO (13:05)
[2022-08-24 13:39] VITALS: BP 131/83
== END 2022-08-24 13:39 | disposition home or self-care (01) ==
LOC: SDC 09:33 → AC 09:35
PROVIDERS: Referring Provider Orthopaedic Surgery Sports Medicine; Visit Provider Orthopaedic Surgery Sports Medicine
PROC: (CPT 29848; principal; 2022-08-24 11:10)
DX: G56.02 Carpal tunnel syndrome, left upper limb (principal); Z21 Asymptomatic human immunodeficiency virus [HIV] infection status; I10 Essential (primary) hypertension; E78.00 Pure hypercholesterolemia, unspecified; F17.210 Nicotine dependence, cigarettes, uncomplicated; F41.9 Anxiety disorder, unspecified; F32.A Depression, unspecified; E03.9 Hypothyroidism, unspecified; G47.30 Sleep apnea, unspecified; Z79.899 Other long term (current) drug therapy
CPT/HCPCS: 29848; 01810; J7120; J2405

== ENCOUNTER → 2023-03-14 | Outpatient (CLI) | payer MEDICAID, SELFPAY ==
--- OUTSIDE RECORDS SUMMARY | 2023-03-14 07:50 | XMS RPT_ITS | CCD ---
Author Name Unknown Address [id number] [place] [address] Organization [facility] Care Team Providers Care Director Data Processing Name Role Phone Danay Valverde LPN Unavailable Unavailable Ayah GIL, Radha Vieyra Unavailable PROVIDER, UNKNOWN Admitting Unavailable PROVIDER, UNKNOWN Attending Unavailable Crystal Sterling DO Primary Care Provider Crystal Sterling DO Primary Care Provider [facility], Vesna Stockton Primary Care Provider Un available CRYSTAL STERLING Primary Care Unavailable CHING NEWELL Referring Unavailable HERNÁN HAMPTON Attending Unavaila CRYSTAL Woodruff Primary Care Unavailable CRYSTAL STERLING Primary Care Unavailable HARDEEP MCDERMOTT Referring Unavailable Allergies Allergy Classification Reported Allergen(s) Allergy Type Date of Onset Reaction(s) Facility (9 sources) amoxicillin; Translations: [AMOXICILLIN] drug allergy 03-04-2013 Unknown [facility] Work Phone: (3 sources) amoxicillin / clavulanate drug allergy [facility] Work Phone: Medications Completed/Discontinued Medications Medication Drug Class(es) Dates Sig (Normalized) Sig (Original) OXYCODONE-ACETAMINO PHEN (6 sources) Opioid Agonist Start: 12-06-2011 End: 03-22-2012 PERCOCET 5-325 MG TABS one at night time for pain, may repeat x 1 OXYCODONE-ACETAMINOP HEN [id number] Radha Poon MD Problems Active Problems Problem Classification Problem Date Documented Date Episodic/Chronic Disorders of lipid metabolism (3 sources) Hypertriglyceridemia; Translations: [Pure hyperglyceridemia] Onset: 01-30-2015 01-30-2015 Chronic Esophageal disorders (3 sources) Gastroesophageal reflux disease; Translations: [Gastro-esophageal reflux disease without esophagitis] Onset: 05-11-2015 05-11-2015 Chronic Essential hypertension (6 sources) Essential hypertension; Translations: [Benign essential hypertension] Onset: 12-06-2011 08-07-2012 Chronic HIV infection (11 sources) Human immunodeficiency virus infection; Translations: [Asymptomatic human immunodeficiency virus infection] Onset: 03-12-2008 11-30-2011 Chronic Other circulatory disease (1 source) Feeling of lump in throat; Translations: [Other specified symptoms and signs involving the circulatory and respiratory systems] Episodic Other connective tissue disease (1 source) Pain in right foot; Translations: [Pain in right foot] Episodic Other ear and sense organ disorders (5 sources) Sensorineural hearing loss, bilateral; Translations: [Sensorineural hearing loss, bilateral] Onset: 10-12-2021 Chronic Other lower respiratory disease (4 sources) Cough; Translations: [Acute cough] Onset: 06-27-2016 06-27-2016 Episodic Other nervous system disorders (9 sources) Carpal tunnel syndrome; Translations: [Cervical radiculopathy] Onset: 04-02-2014 08-13-2014 Chronic Screening or history of mental health and substance abuse (6 sources) Tobacco dependence syndrome; Translations: [Nicotine dependence, unspecified, uncomplicated] Onset: 12-06-2011 12-06-2011 Chronic Unclassified (1 source) Acute cough; Translations: [Acute cough] Onset: 07-04-2022 Past or Other Problems Problem Classification Problem Date Documented Date Episodic/Chronic Deficiency and other anemia (3 sources) Anemia; Translations: [Anemia, unspecified] Onset: 03-09-2015 03-09-2015 Episodic Disorders of teeth and jaw (3 sources) Dental caries; Translations: [Dental caries, unspecified] Onset: 03-22-2012 03-23-2012 Episodic Malaise and fatigue (3 sources) Fatigue; Translations: [Other fatigue] Onset: 06-27-2016 06-27-2016 Episodic Other aftercare (3 sources) Follow-up orthopedic assessment; Translations: [Encounter for other orthopedic aftercare] Onset: 10-17-2014 10-20-2014 Episodic Other connective tissue disease (6 sources) Tenosynovitis of thumb; Translations: [Foot pain] Onset: 02-23-2015 Resolved: 03-09-2015 02-23-2015 Episodic Other connective tissue disease (1 source) Pain in right foot; Translations: [Foot pain, right] Onset: 09-09-2021 Episodic Other ear and sense organ disorders (5 sources) Bilateral tinnitus; Translations: [Tinnitus, bilateral] Onset: 10-12-2021 Episodic Other upper respiratory infections (3 sources) Upper respiratory infection; Translations: [Acute upper respiratory infection, unspecified] Onset: 04-13-2015 Resolved: 04-18-2015 04-13-2015 Episodic Spondylosis; intervertebral disc disorders; other back problems (3 sources) Acute low back pain; Translations: [Low back pain] Onset: 04-13-2015 Resolved: 04-18-2015 04-13-2015 Episodic STDs excluding HIV or hepatitis (6 sources) Neurosyphilis; Translations: [Neurosyphilis, unspecified] Onset: 12-06-2011 12-06-2011 Episodic Results Test Name Value Interpretation Reference Range Facil it Vital Signs Date Time Vital Sign Value Performing Clinician Facility 07-04-2022 14:49-0400 Body temperature 97.9 [degF] Ching Newell APRN.CNP Work Phone: [facility] 07-04-2022 14:49-0400 Body weight 97.98 kg Ching Newell APRN.CNP Work Phone: [facility] 07-04-2022 14:49-0400 Diastolic blood pressure 64 mm[Hg] Ching Newell APRN.CNP Work Phone: [facility] 07-04-2022 14:49-0400 Heart rate 110 /min Ching Newell APRN.CNP Work Phone: [facility] 07-04-2022 14:49-0400 Respiratory rate 16 /min Ching Newell APRN.CNP Work Phone: [facility] 07-04-2022 14:49-0400 SaO2% (BldA) [Mass fraction] 96 % Ching Newell APRN.CNP Work Phone: [facility] 07-04-2022 14:49-0400 Systolic blood pressure 122 mm[Hg] Ching Newell BASEBALL COACH.INDEPENDENT PRODUCER Work Phone: [facility] 09-09-2021 08:54-0400 Body temperature 97.3 [degF] Hardeep Mcdermott BASEBALL COACH.INDEPENDENT PRODUCER Work Phone: [facility] 09-09-2021 08:54-0400 Body weight 96.25 kg Hardeep Mcdermott BASEBALL COACH.INDEPENDENT PRODUCER Work Phone: [facility] 09-09-2021 08:54-0400 Diastolic blood pressure 86 mm[Hg] Hardeep Mcdermott BASEBALL COACH.INDEPENDENT PRODUCER Work Phone: [facility] 09-09-2021 08:54-0400 Heart rate 107 /min Hardeep Mcdermott BASEBALL COACH.INDEPENDENT PRODUCER Work Phone: [facility] 09-09-2021 08:54-0400 Respiratory rate 20 /min Hardeep Mcdermott BASEBALL COACH.INDEPENDENT PRODUCER Work Phone: [facility] 09-09-2021 08:54-0400 SaO2% (BldA) [Mass fraction] 96 % Hardeep Mcdermott BASEBALL COACH.INDEPENDENT PRODUCER Work Phone: [facility] 09-09-2021 08:54-0400 Systolic blood pressure 134 mm[Hg] Hardeep Mcdermott BASEBALL COACH.INDEPENDENT PRODUCER Work Phone: [facility] 06-27-2016 11:18-0400 BMI (Body Mass Index) 34.12 kg/m2 Radha Signs MD [facility] Work Phone: 06-27-2016 11:18-0400 Body Temperature 97.9 [degF] Radha Signs MD [facility] Work Phone: 06-27-2016 11:18-0400 BP Diastolic 85 mm[Hg] Radha Signs MD [facility] Work Phone: 06-27-2016 11:18-0400 BP Systolic 136 mm[Hg] Radha Signs MD [facility] Work Phone: 06-27-2016 11:18-0400 Height 167.64 cm Radha [facility] Work Phone: 06-27-2016 11:18-0400 Pulse (Heart Rate) 84 /min Radha [facility] Work Phone: 06-27-2016 11:18-0400 Pulse Oximetry 97 % Radhabj [facility] Work Phone: 06-27-2016 11:18-0400 Respiratory Rate 20 /min Radha [facility] Work Phone: 06-27-2016 11:18-0400 Weight 95.89 kg Radha [facility] Work Phone: 04-13-2015 14:14-0500 BSA (Body Surface Area) 2.04 m2 Radha [facility] Work Phone: Encounters Encounter Date Encounter Type Care Provider Facility Start: 07-04-2022 End: 07-04-2022 ambulatory CHING ANAY Facility:[facility] Start: 07-04-2022 End: 07-04-2022 Patient encounter procedure Ching Newell BASEBALL COACH.INDEPENDENT PRODUCER Work Phone: [facility] Procedures Date Procedure Procedure Detail Performing Clinician Start: 10-02-2019 ORAL SURGERY SERVICE REQUEST UNKNOWN PRO VIDER Start: 06-27-2016 End: 07-25-2016 *CBC with Differential Radha Poon MD Start: 06-27-2016 End: 07-25-2016 *CD4 - T Cells, Absolute CD4 Count Radha Poon MD Start: 06-27-2016 End: 07-25-2016 *CMP Complete Metabolic Panel Radha vargas MD Start: 06-27-2016 End: 07-25-2016 *MISC - Miscellaneous Lab Test #1 Radha Poon MD Start: 06-27-2016 End: 07-25-2016 Hepatitis C virus RNA [Presence] in Blood by TERRIE with probe detection Radha Poon MD Start: 06-27-2016 End: 07-25-2016 HIV 1 viral load Radha Poon MD Start: 06-27-2016 End: 07-25-2016 Mycobacterium tuberculosis tuberculin stimulated gamma interferon [Presence] in Blood Radha Poon MD Start: 06-27-2016 End: 07-25-2016 Thyroid stimulating hormone (TSH) Radha Poon MD Start: 03-08-2016 End: 07-25-2016 *MISC - Miscellaneous Lab Test #1 Radha Poon MD Start: 03-08-2016 End: 07-25-2016 Treponema pallidum Ab [Presence] in Serum by Immunofluorescence Radha Poon MD Start: 02-16-2016 End: 07-25-2016 *CBC with Differential Radha Poon MD Start: 02-16-2016 End: 07-25-2016 *CD4 - T Cells, Absolute CD4 Count Radha Poon MD Start: 02-16-2016 End: 07-25-2016 *CMP Complete Metabolic Panel Radha vargas MD Start: 02-16-2016 End: 07-25-2016 *HEBSAG - Hep B Surface Antigen 6510 Radha Poon MD Start: 02-16-2016 End: 07-25-2016 *Hep C Antibody, Total Radha Poon MD Start: 02-16-2016 End: 07-25-2016 25-Hydroxyvitamin D2+25-Hydroxyvitamin D3 [Mass/volume] in Serum or Plasma Radha Poon MD Start: 02-16-2016 End: 07-25-2016 BSA (Body Surface Area) Radha Kent Start: 02-16-2016 End: 07-25-2016 HbA1c Radha Poon MD Start: 02-16-2016 End: 07-25-2016 Hepatitis A virus Ab [Presence] in Serum Radha Poon MD Start: 02-16-2016 End: 07-25-2016 HIV 1 viral load Radha Poon MD Start: 02-16-2016 End: 07-25-2016 Lipid panel [AGGREGATE] Radha Vazquez D Start: 02-16-2016 End: 07-25-2016 Reagin antibody presence Radha Poon MD Start: 02-16-2016 End: 07-25-2016 Thyroid stimulating hormone (TSH) Radha Poon MD Start: 09-02-2015 End: 09-03-2015 SNOMED-CT: [id number] Clinical consultation report Radha Poon MD Start: 05-11-2015 End: 05-12-2015 Referral to manager of sustainability Radha Poon MD Start: 03-09-2015 End: 03-30-2015 *CBC with Differential Radha Poon MD Start: 03-09-2015 End: 04-02-2015 *MISC - Miscellaneous Lab Test #1 Radha Poon MD Start: 03-09-2015 End: 03-30-2015 Erythrocyte sedimentation rate Radha Poon MD Start: 02-23-2015 End: 02-25-2015 *CBC with Differential Radha Poon MD Start: 02-23-2015 End: 02-26-2015 *CD4 - T Cells, Absolute CD4 Count Radha Poon MD Start: 02-23-2015 End: 02-25-2015 *CMP Complete Metabolic Panel Radha vargas MD Start: 02-23-2015 End: 02-25-2015 *HEBSAG - Hep B Surface Antigen 6510 Radha Pono MD Start: 02-23-2015 End: 02-25-2015 *Hep C Antibody, Total Radha Poon MD Start: 02-23-2015 End: 02-26-2015 BSA (Body Surface Area) Radha Poon M D Start: 02-23-2015 End: 02-25-2015 HbA1c Radha Poon MD Start: 02-23-2015 End: 02-25-2015 Hepatitis A virus Ab [Presence] in Serum Radha Poon MD Start: 02-23-2015 End: 02-26-2015 Hepatitis A virus IgM Ab [Presence] in Serum Radha Poon MD Start: 02-23-2015 End: 03-02-2015 HIV 1 viral load Radha Poon MD Start: 02-23-2015 End: 02-25-2015 Lipid panel [AGGREGATE] Radha Poon M D Start: 02-23-2015 End: 02-25-2015 Thyroid stimulating hormone (TSH) Radha Poon MD Start: 11-12-2014 End: 03-04-2015 *CBC with Differential Radha Poon MD Start: 11-12-2014 End: 03-04-2015 *CD4 - T Cells, Absolute CD4 Count Radha Poon MD Start: 11-12-2014 End: 03-04-2015 *CMP Complete Metabolic Panel Radha vargas MD Start: 11-12-2014 End: 03-04-2015 *Hep C Antibody, Total Radha Poon MD Start: 11-12-2014 End: 11-12-2014 Documentation of current medications Radha Poon MD Start: 11-12-2014 End: 03-04-2015 HbA1c Radha Poon MD Start: 11-12-2014 End: 03-04-2015 HIV 1 viral load Radha Poon MD Start: 08-04-2014 End: 08-05-2014 Documentation of current medications Radha Poon MD Start: 05-21-2014 End: 05-26-2014 *CD4 - T Cells, Absolute CD4 Count Radha Poon MD Start: 05-21-2014 End: 05-29-2014 HIV 1 viral load Radha Poon MD Start: 05-13-2014 End: 05-15-2014 *CD4 - T Cells, Absolute CD4 Count Radha Poon MD Start: 05-13-2014 End: 05-16-2014 HIV 1 viral load Radha Poon MD Start: 04-02-2014 End: 04-03-2014 Documentation of current medications Radha Poon MD Start: 04-02-2014 End: 05-15-2014 HIV 1 viral load Radha Poon MD Start: 04-02-2014 End: 05-15-2014 Nerve Conduction Radha Poon MD Start: 04-02-2014 End: 04-03-2014 Smoking cessation education Radha barrientos MD Start: 03-21-2014 End: 03-24-2014 *CBC with Differential Radha Poon MD Start: 03-21-2014 End: 03-24-2014 *CD4 - T Cells, Absolute CD4 Count Radha Poon MD Start: 03-21-2014 End: 03-24-2014 *CMP Complete Metabolic Panel Radha vargas MD Start: 03-21-2014 End: 03-24-2014 *HEBSAG - Hep B Surface Antigen 6510 Radha Poon MD Start: 03-21-2014 End: 03-24-2014 *Hep C Antibody, Total Radha Poon MD Start: 03-21-2014 End: 03-24-2014 1,25-Dihydroxyvitamin D [Mass/volume] in Serum or Plasma Radha Poon MD Start: 03-21-2014 End: 03-24-2014 25-Hydroxyvitamin D2+25-Hydroxyvitamin D3 [Mass/volume] in Serum or Plasma Radha Poon MD Start: 03-21-2014 End: 03-24-2014 BSA (Body Surface Area) Radha Kent Start: 03-21-2014 End: 03-24-2014 HbA1c Radha Poon MD Start: 03-21-2014 End: 03-24-2014 Hepatitis A virus Ab [Presence] in Serum Radha Poon MD Start: 03-21-2014 End: 03-24-2014 Hepatitis A virus IgM Ab [Presence] in Serum Radha Poon MD Start: 03-21-2014 End: 03-24-2014 HIV 1 viral load Radha Poon MD Start: 03-21-2014 End: 03-24-2014 Lipid panel [AGGREGATE] Radha Kent Start: 03-21-2014 End: 03-24-2014 Reagin antibody presence Radha Poon MD Start: 03-21-2014 End: 03-24-2014 Thyroid stimulating hormone (TSH) Radha Poon MD Start: 12-03-2012 End: 03-24-2014 *CD4 - T Cells, Absolute CD4 Count Radha Poon MD Start: 12-03-2012 End: 03-24-2014 HIV 1 viral load Radha Poon MD Start: 11-27-2012 End: 03-24-2014 Glucose Radha Poon MD Start: 11-27-2012 End: 03-24-2014 Mycobacterium tuberculosis tuberculin stimulated gamma interferon [Presence] in Blood Radhabj Poon MD Start: 11-27-2012 End: 03-24-2014 Reagin antibody presence Radhabj Poon MD Start: 07-25-2012 End: 03-24-2014 *CBC with Differential Radha Poon MD Start: 07-25-2012 End: 03-24-2014 *CD4 - T Cells, Absolute CD4 Count Radhabj Poon MD Start: 07-25-2012 End: 03-24-2014 *CMP Complete Metabolic Panel Radha vargas MD Start: 07-25-2012 End: 03-24-2014 HbA1c Radha Poon MD Start: 07-25-2012 End: 03-24-2014 HIV 1 viral load Radha Poon MD Start: 07-25-2012 End: 03-24-2014 Lipid panel [AGGREGATE] Radha Jarrell Kent Start: 07-25-2012 End: 03-24-2014 Reagin antibody presence Radhabj Poon MD Start: 07-25-2012 End: 03-24-2014 Thyroid stimulating hormone (TSH) Radha Poon MD Start: 03-22-2012 End: 03-24-2014 *CD4 - T Cells, Absolute CD4 Count Radha Poon MD Start: 03-22-2012 End: 03-24-2014 HIV 1 viral load Radha Poon MD Start: 03-21-2012 End: 03-24-2014 *CBC with Differential Radha Poon MD Start: 03-21-2012 End: 03-24-2014 *CD4 - T Cells, Absolute CD4 Count Radha Poon MD Start: 03-21-2012 End: 03-24-2014 *CMP Complete Metabolic Panel Radha vargas MD Start: 03-21-2012 End: 03-24-2014 Lipid panel [AGGREGATE] Radha Vazquez D Start: 03-21-2012 End: 03-24-2014 Thyroid stimulating hormone (TSH) Radha Poon MD Start: 12-06-2011 End: 03-21-2012 HIV 1 viral load Radha Poon MD Start: 11-30-2011 End: 03-21-2012 *CBC with Differential Radha Poon MD Start: 11-30-2011 End: 03-21-2012 *CD4 - T Cells, Absolute CD4 Count Radha Poon MD Start: 11-30-2011 End: 03-21-2012 *CMP Complete Metabolic Panel Radha vargas MD Start: 11-30-2011 End: 03-21-2012 HbA1c Radha Poon MD Start: 11-30-2011 End: 03-21-2012 HIV 1 viral load Radha Poon MD Start: 11-30-2011 End: 03-21-2012 Lipid panel [AGGREGATE] Radha Vazquez D Start: 11-30-2011 End: 03-21-2012 Thyroid stimulating hormone (TSH) Radha Poon MD Plan of Treatment Date Care Activity Detail Author Start: 02-27-2022 DEPRESSION ASSESSMENT DEPRESSION ASSESSMENT [facility] Start: 12-03-2021 COVID-19 VACCINE (5 - Booster for Pfizer series) COVID-19 VACCINE (5 - Booster for Pfizer series) [facility] Start: 10-28-2021 Influenza vaccination INFLUENZA (#1) [facility] Start: 09-28-2021 COVID-19 VACCINE (5 - Booster for Pfizer series) COVID-19 VACCINE (5 - Booster for Pfizer series) [facility] Start: 07-25-2021 LIPID SCREEN LIPID SCREEN [facility] Start: 06-08-2021 COVID-19 VACCINE (4 - Booster for Pfizer series) COVID-19 VACCINE (4 - Booster for Pfizer series) [facility] Start: 06-14-2019 COLOGUARD (FIT-DNA) COLOGUARD (FIT-DNA) [facility] Start: 06-14-2019 Colonoscopy COLONOSCOPY [facility] Start: 06-14-2019 COLORECTAL CANCER SCREENING COLORECTAL CANCER SCREENING [facility] Start: 06-14-[address] COLONOGRAPHY [facility] Start: 06-14-2019 DIABETES SCREEN DIABETES SCREEN [facility] Start: 06-14-2019 FECAL OCCULT BLOOD FECAL OCCULT BLOOD [facility] Start: 06-14-2019 SIGMOIDOSCOPY SIGMOIDOSCOPY [facility] Start: 04-29-2018 Urine microalbumin profile DTAP,TDAP,TD (2 - Tdap) [facility] Start: 07-11-2016 End: 07-11-2016 *MISC - Miscellaneous Lab Test #1 *MISC - Miscellaneous Lab Test #1 [facility] Work Phone: Start: 06-27-2016 End: 06-27-2016 Appointment Appointment [facility] Work Phone: Start: 06-27-2016 End: 07-25-2016 *CBC with Differential *CBC with Differential [facility] Work Phone: Start: 06-27-2016 End: 07-25-2016 *CD4 - T Cells, Absolute CD4 Count *CD4 - T Cells, Absolute CD4 Count [facility] Work Phone: Start: 06-27-2016 End: 07-25-2016 *CMP Complete Metabolic Panel *CMP Complete Metabolic Panel [facility] Work Phone: Start: 06-27-2016 End: 07-25-2016 *MISC - Miscellaneous Lab Test #1 *MISC - Miscellaneous Lab Test #1 [facility] Work Phone: Start: 06-27-2016 End: 07-25-2016 Hepatitis C virus RNA [Presence] in Blood by TERRIE with probe detection *Hep C Viral Load [facility] Work Phone: Start: 06-27-2016 End: 07-25-2016 HIV 1 viral load *HIVVL HIV-1, Viral Load Determined by PCR [facility] Work Phone: Start: 06-27-2016 End: 07-25-2016 Mycobacterium tuberculosis tuberculin stimulated gamma interferon [Presence] in Blood *QFTBINC Quantiferon TB Gold [facility] Work Phone: Start: 06-27-2016 End: 07-25-2016 Thyroid stimulating hormone (TSH) *TSH [facility] Work Phone: Start: 03-08-2016 End: 07-25-2016 *MISC - Miscellaneous Lab Test #1 *MISC - Miscellaneous Lab Test #1 [facility] Work Phone: Start: 03-08-2016 End: 07-25-2016 Treponema pallidum Ab [Presence] in Serum by Immunofluorescence *FTA - FTA - ABS.CSF [facility] Work Phone: Start: 02-16-2016 End: 07-25-2016 *CBC with Differential *CBC with Differential [facility] Work Phone: Start: 02-16-2016 End: 07-25-2016 *CD4 - T Cells, Absolute CD4 Count *CD4 - T Cells, Absolute CD4 Count [facility] Work Phone: Start: 02-16-2016 End: 07-25-2016 *CMP Complete Metabolic Panel *CMP Complete Metabolic Panel [facility] Work Phone: Start: 02-16-2016 End: 07-25-2016 *HEBSAG - Hep B Surface Antigen 6510 *HEBSAG - Hep B Surface Antigen 6510 [facility] Work Phone: Start: 02-16-2016 End: 07-25-2016 *Hep C Antibody, Total *Hep C Antibody, Total [facility] Work Phone: Start: 02-16-2016 End: 07-25-2016 25-Hydroxyvitamin D2+25-Hydroxyvitamin D3 [Mass/volume] in Serum or Plasma *Vitamin D (Calciferol) [facility] Work Phone: Start: 02-16-2016 End: 07-25-2016 BSA (Body Surface Area) *HEBSAB - Hep B Surface Antibody 6395 [facility] Work Phone: Start: 02-16-2016 End: 07-25-2016 HbA1c *HgA1C [facility] Work Phone: Start: 02-16-2016 End: 07-25-2016 Hepatitis A virus Ab [Presence] in Serum *HEAT Hepatitis A Antibdy - IGG/IGM [facility] Work Phone: Start: 02-16-2016 End: 07-25-2016 HIV 1 viral load *HIVVL HIV-1, Viral Load Determined by PCR [facility] Work Phone: Start: 02-16-2016 End: 07-25-2016 Lipid panel [AGGREGATE] *Lipid Profile [facility] Work Phone: Start: 02-16-2016 End: 07-25-2016 Reagin antibody presence *RPR [facility] Work Phone: Start: 02-16-2016 End: 07-25-2016 Thyroid stimulating hormone (TSH) *TSH [facility] Work Phone: Start: 05-11-2015 End: 05-13-2015 Podiatry Referral Podiatry Referral [facility], [address] [place] [address], [id number] [facility] Work Phone: Start: 04-14-2015 End: 04-14-2015 Urinalysis complete panel - Urine *UAC- Urinalysis, Complete w/ Micro [facility] Work Phone: Start: 04-13-2015 End: 04-13-2015 Contrst x-ray, urinary tract X-Ray, KUB [facility] Work Phone: Start: 04-13-2015 End: 04-13-2015 X-ray exam of lower spine X-Ray, Spine, Lumbosacral 2-3 views [facility] Work Phone: Start: 03-09-2015 End: 03-30-2015 *CBC with Differential *CBC with Differential [facility] Work Phone: Start: 03-09-2015 End: 04-02-2015 *MISC - Miscellaneous Lab Test #1 *MISC - Miscellaneous Lab Test #1 [facility] Work Phone: Start: 03-09-2015 End: 03-30-2015 Erythrocyte sedimentation rate *Sedimentation Rate (ESR) [facility] Work Phone: Start: 02-23-2015 End: 02-25-2015 *CBC with Differential *CBC with Differential [facility] Work Phone: Start: 02-23-2015 End: 02-26-2015 *CD4 - T Cells, Absolute CD4 Count *CD4 - T Cells, Absolute CD4 Count [facility] Work Phone: Start: 02-23-2015 End: 02-25-2015 *CMP Complete Metabolic Panel *CMP Complete Metabolic Panel [facility] Work Phone: Start: 02-23-2015 End: 02-25-2015 *HEBSAG - Hep B Surface Antigen 6510 *HEBSAG - Hep B Surface Antigen 6510 [facility] Work Phone: Start: 02-23-2015 End: 02-25-2015 *Hep C Antibody, Total *Hep C Antibody, Total [facility] Work Phone: Start: 02-23-2015 End: 02-23-2015 25-Hydroxyvitamin D2+25-Hydroxyvitamin D3 [Mass/volume] in Serum or Plasma *Vitamin D (Calciferol) [facility] Work Phone: Start: 02-23-2015 End: 02-26-2015 BSA (Body Surface Area) *HEBSAB - Hep B Surface Antibody 6395 [facility] Work Phone: Start: 02-23-2015 End: 02-25-2015 HbA1c *HgA1C [facility] Work Phone: Start: 02-23-2015 End: 02-25-2015 Hepatitis A virus Ab [Presence] in Serum *HEAT Hepatitis A Antibdy - IGG/IGM [facility] Work Phone: Start: 02-23-2015 End: 02-26-2015 Hepatitis A virus IgM Ab [Presence] in Serum *HEAM Hepatitis A Antibdy - IGM [facility] Work Phone: Start: 02-23-2015 End: 03-02-2015 HIV 1 viral load *HIVVL HIV-1, Viral Load Determined by PCR [facility] Work Phone: Start: 02-23-2015 End: 02-23-2015 Inj tendon sheath/ligament Injection, Pain Trigger Point [facility] Work Phone: Start: 02-23-2015 End: 02-23-2015 Kenalog per 10 mg Kenalog per 10 mg [facility] Work Phone: Start: 02-23-2015 End: 02-25-2015 Lipid panel [AGGREGATE] *Lipid Profile [facility] Work Phone: Start: 02-23-2015 End: 02-23-2015 Reagin antibody presence *RPR [facility] Work Phone: Start: 02-23-2015 End: 02-25-2015 Thyroid stimulating hormone (TSH) *TSH [facility] Work Phone: Start: 01-30-2015 End: 04-15-2015 Physical Therapy General Physical Therapy General [facility], [address] [place] [address], [id number] [facility] Work Phone: Start: 11-12-2014 End: 03-04-2015 *CBC with Differential *CBC with Differential [facility] Work Phone: Start: 11-12-2014 End: 03-04-2015 *CD4 - T Cells, Absolute CD4 Count *CD4 - T Cells, Absolute CD4 Count [facility] Work Phone: Start: 11-12-2014 End: 03-04-2015 *CMP Complete Metabolic Panel *CMP Complete Metabolic Panel [facility] Work Phone: Start: 11-12-2014 End: 03-04-2015 *Hep C Antibody, Total *Hep C Antibody, Total [facility] Work Phone: Start: 11-12-2014 End: 03-04-2015 HbA1c *HgA1C [facility] Work Phone: Start: 11-12-2014 End: 03-04-2015 HIV 1 viral load *HIVVL HIV-1, Viral Load Determined by PCR [facility] Work Phone: Start: 11-12-2014 End: 11-12-2014 Lipid panel [AGGREGATE] *Lipid Profile [facility] Work Phone: Start: 10-17-2014 End: 10-30-2014 Postop follow-up visit Post Operative Visit [facility] Work Phone: Start: 08-13-2014 End: 08-13-2014 Orthopedic Referral Orthopedic Referral Alicia Rodriguez, [facility], [address] [place] [address] [address], [place], [address] [facility] Work Phone: Start: 05-21-2014 End: 05-26-2014 *CD4 - T Cells, Absolute CD4 Count *CD4 - T Cells, Absolute CD4 Count [facility] Work Phone: Start: 05-21-2014 End: 05-29-2014 HIV 1 viral load *HIVVL HIV-1, Viral Load Determined by PCR [facility] Work Phone: Start: 05-13-2014 End: 05-15-2014 *CD4 - T Cells, Absolute CD4 Count *CD4 - T Cells, Absolute CD4 Count [facility] Work Phone: Start: 05-13-2014 End: 05-16-2014 HIV 1 viral load *HIVVL HIV-1, Viral Load Determined by PCR [facility] Work Phone: Start: 04-02-2014 End: 05-15-2014 HIV 1 viral load *HIVVL HIV-1, Viral Load Determined by PCR [facility] Work Phone: Start: 04-02-2014 End: 05-15-2014 Nerve Conduction Nerve Conduction [facility] Work Phone: Start: 03-21-2014 End: 03-24-2014 *CBC with Differential *CBC with Differential [facility] Work Phone: Start: 03-21-2014 End: 03-24-2014 *CD4 - T Cells, Absolute CD4 Count *CD4 - T Cells, Absolute CD4 Count [facility] Work Phone: Start: 03-21-2014 End: 03-24-2014 *CMP Complete Metabolic Panel *CMP Complete Metabolic Panel [facility] Work Phone: Start: 03-21-2014 End: 03-24-2014 *HEBSAG - Hep B Surface Antigen 6510 *HEBSAG - Hep B Surface Antigen 6510 [facility] Work Phone: Start: 03-21-2014 End: 03-24-2014 *Hep C Antibody, Total *Hep C Antibody, Total [facility] Work Phone: Start: 03-21-2014 End: 03-24-2014 1,25-Dihydroxyvitamin D [Mass/volume] in Serum or Plasma *[id number] Vitamin D, 1, 25- DiHydroxy [facility] Work Phone: Start: 03-21-2014 End: 03-24-2014 25-Hydroxyvitamin D2+25-Hydroxyvitamin D3 [Mass/volume] in Serum or Plasma *Vitamin D (Calciferol) [facility] Work Phone: Start: 03-21-2014 End: 03-24-2014 BSA (Body Surface Area) *HEBSAB - Hep B Surface Antibody 6395 [facility] Work Phone: Start: 03-21-2014 End: 03-24-2014 HbA1c *HgA1C [facility] Work Phone: Start: 03-21-2014 End: 03-24-2014 Hepatitis A virus Ab [Presence] in Serum *HEAT Hepatitis A Antibdy - IGG/IGM [facility] Work Phone: Start: 03-21-2014 End: 03-24-2014 Hepatitis A virus IgM Ab [Presence] in Serum *HEAM Hepatitis A Antibdy - IGM [facility] Work Phone: Start: 03-21-2014 End: 03-24-2014 HIV 1 viral load *HIVVL HIV-1, Viral Load Determined by PCR [facility] Work Phone: Start: 03-21-2014 End: 03-24-2014 Lipid panel [AGGREGATE] *Lipid Profile [facility] Work Phone: Start: 03-21-2014 End: 03-24-2014 Reagin antibody presence *RPR [facility] Work Phone: Start: 03-21-2014 End: 03-24-2014 Thyroid stimulating hormone (TSH) *TSH [facility] Work Phone: Start: 12-03-2012 End: 03-24-2014 *CD4 - T Cells, Absolute CD4 Count *CD4 - T Cells, Absolute CD4 Count [facility] Work Phone: Start: 12-03-2012 End: 03-24-2014 HIV 1 viral load *HIVVL HIV-1, Viral Load Determined by PCR [facility] Work Phone: Start: 11-27-2012 End: 03-24-2014 Glucose *Glucose, Fasting [facility] Work Phone: Start: 11-27-2012 End: 03-24-2014 Mycobacterium tuberculosis tuberculin stimulated gamma interferon [Presence] in Blood *QFTBINC Quantiferon TB Gold [facility] Work Phone: Start: 11-27-2012 End: 03-24-2014 Reagin antibody presence *RPR [facility] Work Phone: Start: 07-25-2012 End: 03-24-2014 *CBC with Differential *CBC with Differential [facility] Work Phone: Start: 07-25-2012 End: 03-24-2014 *CD4 - T Cells, Absolute CD4 Count *CD4 - T Cells, Absolute CD4 Count [facility] Work Phone: Start: 07-25-2012 End: 03-24-2014 *CMP Complete Metabolic Panel *CMP Complete Metabolic Panel [facility] Work Phone: Start: 07-25-2012 End: 03-24-2014 HbA1c *HgA1C [facility] Work Phone: Start: 07-25-2012 End: 03-24-2014 HIV 1 viral load *HIVVL HIV-1, Viral Load Determined by PCR [facility] Work Phone: Start: 07-25-2012 End: 03-24-2014 Lipid panel [AGGREGATE] *Lipid Profile [facility] Work Phone: Start: 07-25-2012 End: 03-24-2014 Reagin antibody presence *RPR [facility] Work Phone: Start: 07-25-2012 End: 03-24-2014 Thyroid stimulating hormone (TSH) *TSH [facility] Work Phone: Start: 03-22-2012 End: 03-24-2014 *CD4 - T Cells, Absolute CD4 Count *CD4 - T Cells, Absolute CD4 Count [facility] Work Phone: Start: 03-22-2012 End: 03-24-2014 HIV 1 viral load *HIVVL HIV-1, Viral Load Determined by PCR [facility] Work Phone: Start: 03-21-2012 End: 03-24-2014 *CBC with Differential *CBC with Differential [facility] Work Phone: Start: 03-21-2012 End: 03-24-2014 *CD4 - T Cells, Absolute CD4 Count *CD4 - T Cells, Absolute CD4 Count [facility] Work Phone: Start: 03-21-2012 End: 03-24-2014 *CMP Complete Metabolic Panel *CMP Complete Metabolic Panel [facility] Work Phone: Start: 03-21-2012 End: 03-24-2014 Lipid panel [AGGREGATE] *Lipid Profile [facility] Work Phone: Start: 03-21-2012 End: 03-24-2014 Thyroid stimulating hormone (TSH) *TSH [facility] Work Phone: Start: 02-02-2012 Diabetic foot examination ID SYPHILIS SCREENING [facility] Start: 02-02-2012 Pneumococcal conjugate vaccination ID URINALYSIS [facility] Start: 02-02-2012 Varicella vaccination ID LIPID PROFILE [facility] Start: 12-06-2011 End: 03-21-2012 HIV 1 viral load *HIVVL HIV-1, Viral Load Determined by PCR [facility] Work Phone: Start: 11-30-2011 End: 03-21-2012 *CBC with Differential *CBC with Differential [facility] Work Phone: Start: 11-30-2011 End: 03-21-2012 *CD4 - T Cells, Absolute CD4 Count *CD4 - T Cells, Absolute CD4 Count [facility] Work Phone: Start: 11-30-2011 End: 03-21-2012 *CMP Complete Metabolic Panel *CMP Complete Metabolic Panel [facility] Work Phone: Start: 11-30-2011 End: 03-21-2012 HbA1c *HgA1C [facility] Work Phone: Start: 11-30-2011 End: 03-21-2012 HIV 1 viral load *HIVVL HIV-1, Viral Load Determined by PCR [facility] Work Phone: Start: 11-30-2011 End: 03-21-2012 Lipid panel [AGGREGATE] *Lipid Profile [facility] Work Phone: Start: 11-30-2011 End: 03-21-2012 Thyroid stimulating hormone (TSH) *TSH [facility] Work Phone: Start: 08-03-2011 Diphtheria + tetanus + acellular pertussis vaccine (product) ID VIRAL LOAD [facility] Start: 08-03-2011 Rotavirus vaccination ID CD4 COUNT [facility] Start: 05-08-2010 ID HEPATITIS B SURFACE ANTIBODY ID HEPATITIS B SURFACE ANTIBODY [facility] Start: 05-08-2010 ID HEPATITIS C ANTIBODY ID HEPATITIS C ANTIBODY [facility] Start: 05-05-2010 ID TB TESTING ID TB TESTING [facility] Start: 05-27-2008 PNEUMOCOCCAL (2 - PCV) PNEUMOCOCCAL (2 - PCV) [facility] Start: 1993 SHINGRIX VACCINE (1 of 2) SHINGRIX VACCINE (1 of 2) [facility] Start: 1992 Hepatitis A immunization ID ANAL PAP [facility] Start: 1992 ID HIV COUNSELING ID HIV COUNSELING [facility] Start: 1992 Cvyrgdg-hiqoj-wddbylc vaccination ID DENTAL VISIT/REFERRAL [facility] Start: 1992 MMR (1 of 2 - Risk 2-dose series) MMR (1 of 2 - Risk 2-dose series) [facility] Start: 1986 Adult depression screening assessment DEPRESSION SCREENING [facility] Start: 1976 MENINGOCOCCAL CONJUGATE (1 - Risk 2-dose series) MENINGOCOCCAL CONJUGATE (1 - Risk 2-dose series) [facility] Start: 01-13-1975 MENINGOCOCCAL CONJUGATE (1 - Risk start 2-23 months series) MENINGOCOCCAL CONJUGATE (1 - Risk start 2-23 months series) [facility] Patient Education HIV%[id number] [facility] Work Phone: [facility] Immunizations Immunization Date Immunization Notes Care Provider Fa cility 02-01-2011 influenza virus vacc ine, unspecified formulation Hardeep Mcdermott BASEBALL COACH.INDEPENDENT PRODUCER Work Phone: [facility] 01-20-2010 influenza virus vacc ine, unspecified formulation Hardeep Mcdermott BASEBALL COACH.INDEPENDENT PRODUCER Work Phone: [facility] 05-05-2009 hepatitis A vaccine, unspecified formulation Hardeep Mcdermott BASEBALL COACH.INDEPENDENT PRODUCER Work Phone: [facility] 05-05-2009 novel influenza-H1N1 -09, all formulations Hardeep Mcdermott BASEBALL COACH.INDEPENDENT PRODUCER Work Phone: [facility] 12-10-2008 influenza virus vacc ine, unspecified formulation Hardeep Mcdermott BASEBALL COACH.INDEPENDENT PRODUCER Work Phone: [facility] 04-29-2008 diphtheria, tetanus toxoids and acellular pertussis vaccine Hardeep Mcdermott BASEBALL COACH.INDEPENDENT PRODUCER Work Phone: [facility] 01-18-2008 hepatitis A vaccine, unspecified formulation Hardeep Mcdermott BASEBALL COACH.INDEPENDENT PRODUCER Work Phone: [facility] 01-18-2008 influenza virus vacc ine, unspecified formulation Hardeep Mcdermott BASEBALL COACH.INDEPENDENT PRODUCER Work Phone: [facility] 05-28-2007 pneumococcal polysaccharide vaccine, 23 valent Hardeep Mcdermott BASEBALL COACH.INDEPENDENT PRODUCER Work Phone: [facility] Payers Date Payer Category Payer Medicaid [employer] [id number] 2020-Present [phone] [place] [id number] Medicaid [id number] 2020 Medicaid [id number] 2020 Medicaid [id number] 2019 Unknown [id number] 1975 Unknown [id number] Social History Date Type Detail Facility Start: 07-18-2018 End: 07-04-2022 Tobacco smoking status NHIS Smokes tobacco daily [facility] History of tobacco use Cigarette Smoker [facility] Start: 09-09-2021 End: 07-04-2022 Alcohol intake Current drinker of alcohol (finding) [facility] Start: 07-18-2018 History SDOH Alcohol Comment occasional [facility] Start: 1975 Sex Assigned At Not on file [facility] Start: 08-30-2021 End: 10-12-2021 Exposure to SARS-CoV-2 (event) Not sure [facility] Work Phone: Start: 07-18-2018 End: 07-04-2022 Cigarettes smoked current (pack per day) - Reported 0.5 [facility] Start: 07-18-2018 End: 07-04-2022 Tobacco use and exposure Smokeless tobacco non-user [facility] Clinical Notes 09-09-2021 to 07-04-2022 Telephone Encounter - Alicia Mariscal MA - 07/04/2022 4:08 PM EDTTelephone Encounter - Sylvie Delaney APRN.CNP - 07/04/2022 3:44 PM EDTPatient InstructionsPatient Instructions Note Date & Type Note Facility 07-04-2022 Note HNO ID: [id number] Author: RT Adama(R) Service: Radiology Author Type: Technologist Type: Progress Notes Filed: 07/04/2022 3:24 PM Note Text: Radiology Service Progress Note PATIENT NAME: Becky Jones DATE OF SERVICE: July 04, 2022 TIME: 3:18 PM PATIENT IDENTITY VERIFICATION COMPLETED USING TWO (2) IDENTIFIERS: Name and Date of confirmed by patient verbally. FALL SCREENING: Has the patient had 2 falls in the last year or 1 fall with injury or currently using an Ambulatory Assistive Device (Walker, Cane, Wheelchair, Crutches, etc.)? No PATIENT GENDER DATA: Male PATIENT RELEVANT IMPLANT DATA REVIEWED: Yes RADIOLOGY DEPARTMENT: General X-ray: Exam(s) Completed: Chest X-Ray PERIPHERAL IV DATA: Not applicable SIGNED BY: RT Adama(R) July 04, 2022 3:18 PM [facility] 07-04-2022 Note HNO ID: [id number] Author: Ching Newell APRN.SELENA Service: ? Author Type: Nurse Practitioner Type: Progress Notes Filed: 07/04/2022 3:17 PM Note Text: Subjective HPI HPI Becky Jones is a 47 year old male who presents today for CC of cough, and congestion for a week. States it also feels tight to swallow. He has used no treatment or medications. Denies any known sick contacts. He is an everyday smoker. BP 122/64 Pulse 110 Temp 36.6 ?C (97.9 ?F) Resp 16 Wt 98 kg (216 lb) SpO2 96% BMI 34.34 kg/m? Social History Tobacco Use Smoking status: Every Day Packs/day: 0.50 Types: Cigarettes Smokeless tobacco: Never Substance Use Topics Alcohol use: Yes Comment: occasional Drug use: Never PAST MEDICAL HISTORY Diagnosis Date AIDS (acquired immune deficiency syndrome) ([facility]) 03/18/2013 Cholecystitis with cholelithiasis Gallstones GERD (gastroesophageal reflux disease) HIV disease ([facility]) Around 2006 I have confirmed and edited as necessary, the [facility] Review of Systems Constitutional: Negative for chills and fever. HENT: Positive for sore throat. Negative for congestion, ear pain and sinus pain. Globus sensation Respiratory: Positive for cough. Negative for sputum production, shortness of breath and wheezing. Cardiovascular: Negative for chest pain. Musculoskeletal: Negative for myalgias. Neurological: Negative for headaches. Objective Physical Exam Vitals and nursing note reviewed. Constitutional: Appearance: He is not toxic-appearing. HENT: Head: Normocephalic and atraumatic. Right Ear: Tympanic membrane, ear canal and external ear normal. Left Ear: Tympanic membrane, ear canal and external ear normal. Nose: No mucosal edema, congestion or rhinorrhea. Right Sinus: No maxillary sinus tenderness or frontal sinus tenderness. Left Sinus: No maxillary sinus tenderness or frontal sinus tenderness. Mouth/Throat: Pharynx: Uvula midline. No oropharyngeal exudate or posterior oropharyngeal erythema. Tonsils: No tonsillar abscesses. Cardiovascular: Rate and Rhythm: Normal rate and regular rhythm. Heart sounds: Normal heart sounds. Pulmonary: Effort: Pulmonary effort is normal. Breath sounds: Normal breath sounds. No decreased breath sounds, wheezing, rhonchi or rales. Lymphadenopathy: Head: Right side of head: No submental, submandibular, tonsillar or preauricular adenopathy. Left side of head: No submental, submandibular, tonsillar or preauricular adenopathy. Cervical: No cervical adenopathy. Right cervical: No superficial cervical adenopathy. Left cervical: No superficial cervical adenopathy. Neurological: Mental Status: He is alert. ASSESSMENT/PLAN: 1. Acute cough - ICD9: 786.2, ICD10: R05.1 Albuterol inhaler as discussed Mucinex as ordered Angel call with chest xray - XR CHEST 2V FRONTAL/LAT 2. Globus sensation - ICD9: 784.99, ICD10: R09.89 Possible reflux, no sign of swelling Continue omeprazole Follow up with PCP When to see a higher level of are discussed. Diagnosis and treatment plan were discussed and questions were answered to the patient's satisfaction. Pt acknowledged understanding of concepts and follow up plan. Specific signs and symptoms that would indicate the need for higher level of care were discussed in detail warranting prompt ER evaluation. Ching Newell APRN.CNP [facility] 07-04-2022 Miscellaneous Notes Patient spoke with Sylvie, notified of results. Alicia Mariscal MA Attempted to call patient about negative x-ray results. Left message for patient to call back. If patient returns call please let him know that the x-ray was negative no acute findings. Thank you documented in this encounter [facility] 07-04-2022 Miscellaneous Notes Spoke with patient about negative x-ray results. Patient will continue care plan as discussed with provider. documented in this encounter [facility] 07-04-2022 Instructions Ching Newell APRN.CNP - 07/04/2022 3:09 PM EDT Will call with chest xray Albuterol as discussed Tylenol (generic acetaminophen) 500 mg-2 tabs every 8 hrs. as needed for fever and aches Ibuprofen 600 mg (3-200mg tablets) every 6 hours -Mucinex (generic is fine) Guaifenesin 1200 mg twice daily to help with cough and to thin out mucus * Seek medical care immediately, call 911, go to ER if you have chest pain, difficulty breathing, shortness of breath, inability to swallow. Follow up with PCP if no improvement. documented in this encounter [facility] 07-04-2022 History of Presen t illness Narrative Subjective HPI HPI Becky Jones is a 47 year old male who presents today for CC of cough, and congestion for a week. States it also feels tight to swallow. He has used no treatment or medications. Denies any known sick contacts. He is an everyday smoker. BP 122/64 Pulse 110 Temp 36.6 C (97.9 F) Resp 16 Wt 98 kg (216 lb) SpO2 96% BMI 34.34 kg/m Social History Tobacco Use Smoking status: Every Day Packs/day: 0.50 Types: Cigarettes Smokeless tobacco: Never Substance Use Topics Alcohol use: Yes Comment: occasional Drug use: Never PAST MEDICAL HISTORY Diagnosis Date AIDS (acquired immune deficiency syndrome) ([facility]) 03/18/2013 Cholecystitis with cholelithiasis Gallstones GERD (gastroesophageal reflux disease) HIV disease ([facility]) Around 2006 I have confirmed and edited as necessary, the [facility] Review of Systems Constitutional: Negative for chills and fever. HENT: Positive for sore throat. Negative for congestion, ear pain and sinus pain. Globus sensation Respiratory: Positive for cough. Negative for sputum production, shortness of breath and wheezing. Cardiovascular: Negative for chest pain. Musculoskeletal: Negative for myalgias. Neurological: Negative for headaches. Objective Physical Exam Vitals and nursing note reviewed. Constitutional: Appearance: He is not toxic-appearing. HENT: Head: Normocephalic and atraumatic. Right Ear: Tympanic membrane, ear canal and external ear normal. Left Ear: Tympanic membrane, ear canal and external ear normal. Nose: No mucosal edema, congestion or rhinorrhea. Right Sinus: No maxillary sinus tenderness or frontal sinus tenderness. Left Sinus: No maxillary sinus tenderness or frontal sinus tenderness. Mouth/Throat: Pharynx: Uvula midline. No oropharyngeal exudate or posterior oropharyngeal erythema. Tonsils: No tonsillar abscesses. Cardiovascular: Rate and Rhythm: Normal rate and regular rhythm. Heart sounds: Normal heart sounds. Pulmonary: Effort: Pulmonary effort is normal. Breath sounds: Normal breath sounds. No decreased breath sounds, wheezing, rhonchi or rales. Lymphadenopathy: Head: Right side of head: No submental, submandibular, tonsillar or preauricular adenopathy. Left side of head: No submental, submandibular, tonsillar or preauricular adenopathy. Cervical: No cervical adenopathy. Right cervical: No superficial cervical adenopathy. Left cervical: No superficial cervical adenopathy. Neurological: Mental Status: He is alert. ASSESSMENT/PLAN: 1. Acute cough - ICD9: 786.2, ICD10: R05.1 Albuterol inhaler as discussed Mucinex as ordered Angel call with chest xray - XR CHEST 2V FRONTAL/LAT 2. Globus sensation - ICD9: 784.99, ICD10: R09.89 Possible reflux, no sign of swelling Continue omeprazole Follow up with PCP When to see a higher level of are discussed. Diagnosis and treatment plan were discussed and questions were answered to the patient's satisfaction. Pt acknowledged understanding of concepts and follow up plan. Specific signs and symptoms that would indicate the need for higher level of care were discussed in detail warranting prompt ER evaluation. Ching Newell APRN.SELENA documented in this encounter [facility] 10-12-2021 Note HNO ID: [id number] Author: KEVIN Leal Service: ? Author Type: Supervisor Brine Type: Progress Notes Filed: 10/12/2021 1:16 PM Note Text: Head and Neck Flippin AUDIOLOGIC EVALUATION REPORT Name: Becky Jones CC#: [id number] Date of Service: 10/12/2021 Date of : 1975 Age: [age] year old Referred by: SELF Referred for: Evaluation of suspected change in hearing, tinnitus, or balance. Referral documented: No referral on file Patient's major complaints: Reduced hearing in both ears, Tinnitus in both ears Becky Jones is a 46 year old male who presents with difficulty hearing. He reports that he has the TV too loud for others as well as the radio in the car. He also reports bilateral tinnitus. He reports that he is tired of saying what all of the time and others are tired of hearing him say it. He denies ear pain/drainage or dizziness. He also denies noise exposure. Mr. Jones was seen for an initial audiologic evaluation. See SmartForm Audiogram for additional reported history and symptoms. Risk of Falls Documentation for over 65 years old: Does not apply INTERPRETATION OF HEARING STATUS RIGHT EAR: Sensorineural hearing loss LEFT EAR: Sensorineural hearing loss COMPARISON TO PREVIOUS TESTING, if applicable No previous test available for comparison. TESTING, AND RESULTS Following is a brief interpretation of the obtained findings from the audiologic evaluation. Refer to the Auditory Test Record for complete audiometric results. The patient was counseled about the test findings and appropriate audiologic recommendations were made. SUMMARY: Audiogram can be viewed under Forms/Audiology/SmartForm. OUTER EAR: via otoscopic inspection RIGHT EAR: Otoscopic inspection revealed ear canal was clear with minimal amount of nonoccluding cerumen present and identifiable cone of light suggesting WNL middle ear system. LEFT EAR: Otoscopic inspection revealed ear canal was clear with an identifiable cone of light. MIDDLE EAR: via acoustic immittance testing RIGHT EAR Tympanometry: Normal ME function. LEFT EAR Tympanometry: Normal ME function. AUDITORY/FACIAL NERVE FUNCTION: via acoustic reflex testing RIGHT EAR PROBE EAR: (ipsi right stimulus ear; contralateral left stimulus ear): Acoustic Reflex Pattern Did not test Acoustic Reflex Decay (left stimulus ear): Did not test. LEFT EAR PROBE EAR: (ipsi left stimulus ear; contralateral right stimulus ear): Acoustic Reflex Pattern (Did not test Acoustic Reflex Decay (right stimulus ear):Did not test. HEARING ASSESSMENT: via pure tone and speech testing RIGHT EAR: Hearing Sensitivity: Moderate sensorineural hearing loss from 250-4000 Hz sloping to a moderately severe unspecified loss at 6000 Hz and a severe unspecified loss at 8000 Hz. Word Recognition Score: Excellent (90-100%). WRS is consistent with hearing sensitivity. Words were presented at 85 dB HL which is above intensity level for normal conversational speech. The NU-6 Order by Difficulty Word List (10 words) was used for testing. LEFT EAR: Hearing Sensitivity: Mild sloping to moderate sensorineural loss from 250-3000 Hz sloping to a severe sensorineural hearing loss from 1033-7155 Hz. Word Recognition Score: Good (80-89%). WRS is consistent with hearing sensitivity. Words were presented at 85 dB HL which is above intensity level for normal conversational speech. NU-6 word list (25 words) was used. MANAGEMENT PLAN: * Consider otologic referral to Shaq Thompson MD. * The patient was counseled regarding effective communication strategies to enhance communication ability. * The patient was counseled regarding benefits/limitations of hearing aids and provided written educational materials. * Call [phone] to schedule an appointment to assess your need for hearing aids. Request a HAE appointment. Hernán Stanley, Kevin, CCC-A COLLINS Abbrev- iation Definition Degree of hearing sensitivity dB range WNL within normal limits WNL 0 - 20 SNHL sensorineural hearing loss Mild 20-40 CHL conductive hearing loss Moderate 40-55 MHL mixed hearing loss Moderately-Severe 55-70 WRS word recognition score Severe 70-90 ME middle ear Profound 90 + TM tympanic membrane [facility] 10-12-2021 History of Presen t illness Narrative Images from the original note were not included. [facility] Ne[facility] AUDIOLOGIC EVALUATION REPORT Name: Becky Jones [facility]#: [id number] Date of Service: 10/12/2021 Date of : 1975 Age: [age] year old Referred by: SELF Referred for: Evaluation of suspected change in hearing, tinnitus, or balance. Referral documented: No referral on file Patient's major complaints: Reduced hearing in both ears, Tinnitus in both ears Becky Jones is a 46 year old male who presents with difficulty hearing. He reports that he has the TV too loud for others as well as the radio in the car. He also reports bilateral tinnitus. He reports that he is tired of saying what all of the time and others are tired of hearing him say it. He denies ear pain/drainage or dizziness. He also denies noise exposure. Mr. Jones was seen for an initial audiologic evaluation. See [facility] Audiogram for additional reported history and symptoms. Risk of Falls Documentation for over 65 years old: Does not apply INTERPRETATION OF HEARING STATUS RIGHT EAR: Sensorineural hearing loss LEFT EAR: Sensorineural hearing loss COMPARISON TO PREVIOUS TESTING, if applicable No previous test available for comparison. TESTING, AND RESULTS Following is a brief interpretation of the obtained findings from the audiologic evaluation. Refer to the Auditory Test Record for complete audiometric results. The patient was counseled about the test findings and appropriate audiologic recommendations were made. SUMMARY: Audiogram can be viewed under Forms/Audiology/SmartForm. OUTER EAR: via otoscopic inspection RIGHT EAR: Otoscopic inspection revealed ear canal was clear with minimal amount of nonoccluding cerumen present and identifiable cone of light suggesting WNL middle ear system. LEFT EAR: Otoscopic inspection revealed ear canal was clear with an identifiable cone of light. MIDDLE EAR: via acoustic immittance testing RIGHT EAR Tympanometry: Normal ME function. LEFT EAR Tympanometry: Normal ME function. AUDITORY/FACIAL NERVE FUNCTION: via acoustic reflex testing RIGHT EAR PROBE EAR: (ipsi right stimulus ear; contralateral left stimulus ear): Acoustic Reflex Pattern Did not test Acoustic Reflex Decay (left stimulus ear): Did not test. LEFT EAR PROBE EAR: (ipsi left stimulus ear; contralateral right stimulus ear): Acoustic Reflex Pattern (Did not test Acoustic Reflex Decay (right stimulus ear):Did not test. HEARING ASSESSMENT: via pure tone and speech testing RIGHT EAR: Hearing Sensitivity: Moderate sensorineural hearing loss from 250-4000 Hz sloping to a moderately severe unspecified loss at 6000 Hz and a severe unspecified loss at 8000 Hz. Word Recognition Score: Excellent (90-100%). WRS is consistent with hearing sensitivity. Words were presented at 85 dB HL which is above intensity level for normal conversational speech. The NU-6 Order by Difficulty Word List (10 words) was used for testing. LEFT EAR: Hearing Sensitivity: Mild sloping to moderate sensorineural loss from 250-3000 Hz sloping to a severe sensorineural hearing loss from 6967-6834 Hz. Word Recognition Score: Good (80-89%). WRS is consistent with hearing sensitivity. Words were presented at 85 dB HL which is above intensity level for normal conversational speech. NU-6 word list (25 words) was used. MANAGEMENT PLAN: * Consider otologic referral to Shaq Thompson MD. * The patient was counseled regarding effective communication strategies to enhance communication ability. * The patient was counseled regarding benefits/limitations of hearing aids and provided written educational materials. * Call [phone] to schedule an appointment to assess your need for hearing aids. Request a HAE appointment. Kevin Leal, CCC-A COLLINS Abbrev- iation Definition Degree of hearing sensitivity dB range WNL within normal limits WNL 0 - 20 SNHL sensorineural hearing loss Mild 20-40 CHL conductive hearing loss Moderate 40-55 MHL mixed hearing loss Moderately-Severe 55-70 WRS word recognition score Severe 70-90 ME middle ear Profound 90 + TM tympanic membrane documented in this encounter [facility] 09-09-2021 Note HNO ID: [id number] Author: RT Edinson(R) Service: Nuclear Medicine Author Type: Technologist Type: Progress Notes Filed: 09/09/2021 9:12 AM Note Text: Radiology Service Progress Note PATIENT NAME: Becky Jones DATE OF SERVICE: September 09, 2021 TIME: 9:06 AM PATIENT IDENTITY VERIFICATION COMPLETED USING TWO (2) IDENTIFIERS: Name and Date of confirmed by patient verbally. FALL SCREENING: Has the patient had 2 falls in the last year or 1 fall with injury or currently using an Ambulatory Assistive Device (Walker, Cane, Wheelchair, Crutches, etc.)? No PATIENT GENDER DATA: Male PATIENT RELEVANT IMPLANT DATA REVIEWED: Not Applicable RADIOLOGY DEPARTMENT: General X-ray: Exam(s) Completed: Lower Extremity X-Ray(s): Foot, Right and Wt. Bearing PERIPHERAL IV DATA: Not applicable SIGNED BY: RT Edinson(R) September 09, 2021 9:06 AM [facility] 09-09-2021 Note HNO ID: [id number] Author: Hardeep Mcdermott APRN.INDEPENDENT PRODUCER Service: ? Author Type: Nurse Practitioner Type: Progress Notes Filed: 09/09/2021 10:39 AM Note Text: This note was created using NoteWriter. Subjective Becky Jnoes is a 46 year old male. 46 year old male with PMH HIV and GERD presents with complains of foot pain. Acute onset of symptoms was a couple days ago Right foot, Unsure of known actual injury. Endorses that he did fall over his dog. +throbbing Lateral aspect of foot. Denies skin rash or lesions. Denies numbness or tingling. States pain progressively worsens throughout day. 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 The history is provided by the patient. No language arts teacher was used. Pain (foot) Pain location: right foot This is a new problem. The current episode started in the past 7 days. History of extremity trauma: ??? The problem occurs constantly. The problem has been unchanged. The quality of the pain is described as aching. The pain is at a severity of 5/10. The pain is moderate. Pertinent negatives include no fever, inability to bear weight, itching, joint locking, joint swelling, limited range of motion, numbness, stiffness or tingling. The symptoms are aggravated by activity. He has tried nothing for the symptoms. The treatment provided no relief. Family history does not include gout or rheumatoid arthritis. There is no history of diabetes, gout, osteoarthritis or rheumatoid arthritis. PAST MEDICAL HISTORY Diagnosis Date - AIDS (acquired immune deficiency syndrome) ([facility]) 03/18/2013 - Cholecystitis with cholelithiasis - Gallstones - GERD (gastroesophageal reflux disease) - HIV disease ([facility]) Around 2006 PAST SURGICAL HISTORY Procedure Laterality Date - EGD 07/21/2018 - LAPAROSCOPY SURG CHOLECYSTECTOMY 05/19/2015 - PAST SURGICAL HISTORY OF lesion removed from ear - PAST SURGICAL HISTORY OF bilateral carpal tunnel ALLERGIES Amoxicillin MEDICATIONS citalopram (CELEXA) 20 mg tablet Take by mouth once daily. atorvastatin (LIPITOR) 20 mg tablet levothyroxine (SYNTHROID) 25 mcg tablet Omeprazole 40 mg capsule afwrorblxtot-hpvxynxumj-pntteejw abine-tenofovir (GENVOYA) [phone] mg per tablet Take 1 tablet by mouth once daily. Take with food. lisinopril 10 mg ORAL tablet Take 1 tablet by mouth once daily. cyclobenzaprine (FLEXERIL) 10 mg tablet Take 1 tablet by mouth three times daily as needed for muscle spasm. montelukast (SINGULAIR) 10 mg tablet ranitidine (ZANTAC) 150 mg tablet dicyclomine (BENTYL) 10 mg capsule Take 1 capsule by mouth before meals and at bedtime. FAMILY HISTORY Problem Relation Age of Onset - Cancer Mother thyroid - Lipids Mother - Hypertension Father - Diabetes Father - Lipids Father - None Sister - Diabetes Paternal Grandmother - Hypertension Paternal Grandmother - Heart Paternal Grandfather - Hypertension Paternal Grandfather Social History Tobacco Use - Smoking status: Current Every Day Smoker Packs/day: 0.50 Types: Cigarettes - Smokeless tobacco: Never Used Substance Use Topics - Alcohol use: Yes Comment: occasional - Drug use: Never Review of Systems Constitutional: Negative for activity change, appetite change, chills and fever. Eyes: Negative for pain, discharge, redness and itching. Respiratory: Negative for apnea, cough, choking and chest tightness. Cardiovascular: Negative for chest pain, palpitations and leg swelling. Gastrointestinal: Negative for abdominal pain, diarrhea, nausea and vomiting. Musculoskeletal: Negative for arthralgias, back pain, gait problem, gout and stiffness. Skin: Negative for color change, itching, pallor, rash and wound. Allergic/Immunologic: Negative for environmental allergies, food allergies and immunocompromised state. Neurological: Negative for dizziness, tingling, facial asymmetry, light-headedness, numbness and headaches. Hematological: Negative for adenopathy. Does not bruise/bleed easily. Psychiatric/Behavioral: Negative for agitation, behavioral problems and confusion. Objective BP 134/86 Pulse 107 Temp 36.3 ?C (97.3 ?F) Resp 20 Wt 96.3 kg (212 lb 3.2 oz) SpO2 96% BMI 33.74 kg/m? Physical Exam Vitals and nursing note reviewed. Constitutional: General: He is not in acute distress. Appearance: Normal appearance. He is not ill-appearing, toxic-appearing or diaphoretic. HENT: Head: Normocephalic and atraumatic. Right Ear: External ear normal. Left Ear: External ear normal. Nose: Nose normal. No congestion or rhinorrhea. Mouth/Throat: Mouth: Mucous membranes are moist. Pharynx: Oropharynx is clear. No oropharyngeal exudate or posterior oropharyngeal erythema. Eyes: General: Right eye: No discharge. Left eye: No discharge. Extraocular Movements: Extraocular movements intact. Conjunctiva/sclera: Conjunctivae normal. Pupils: Pupils are equ (more content not included)... [facility] 09-09-2021 Instructions Hardeep Mcdermott APRN.[facility] - 09/09/2021 10:19 AM EDT R.I.C.E. The general care of your injury includes the following: Resting, Icing, Compressing and Elevating the injured area. Remember this as RICE. REST: Limit the use of the injured body part. ICE: By applying ice to the affected area, swelling and pain can be reduced. Place some ice cubes in a re-sealable (Ziploc) bag and add some water. Put a thin washcloth between the bag and your skin. Apply the ice bag to the area for at least 20 minutes. Do this at least 4 times per day. Using the ice for longer times and more frequently is OK. NEVER APPLY ICE DIRECTLY TO THE SKIN. COMPRESS: Compression means to apply pressure around the injured area such as with a splint, cast or an heraclio bandage. Compression decreases swelling and improves comfort. Compression should be tight enough to relieve swelling but not so tight as to decrease circulation. Increasing pain, numbness, tingling, or change in skin color, are all signs of decreased circulation. ELEVATE: Elevate the injured part. For example, elevate your foot by placing it on a chair while sitting, or propping it up on pillows when lying down. documented in this encounter [facility] 09-09-2021 History of Presen t illness Narrative Images from the original note were not included. This note was created using Nanofiber Solutionsriter. Subjective Becky Jones is a 46 year old male. 46 year old male with PMH HIV and GERD presents with complains of foot pain. Acute onset of symptoms was a couple days ago Right foot, Unsure of known actual injury. Endorses that he did fall over his dog. +throbbing Lateral aspect of foot. Denies skin rash or lesions. Denies numbness or tingling. States pain progressively worsens throughout day. 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 The history is provided by the patient. No language arts teacher was used. Pain (foot) Pain location: right foot This is a new problem. The current episode started in the past 7 days. History of extremity trauma: ??? The problem occurs constantly. The problem has been unchanged. The quality of the pain is described as aching. The pain is at a severity of 5/10. The pain is moderate. Pertinent negatives include no fever, inability to bear weight, itching, joint locking, joint swelling, limited range of motion, numbness, stiffness or tingling. The symptoms are aggravated by activity. He has tried nothing for the symptoms. The treatment provided no relief. Family history does not include gout or rheumatoid arthritis. There is no history of diabetes, gout, osteoarthritis or rheumatoid arthritis. PAST MEDICAL HISTORY Diagnosis Date AIDS (acquired immune deficiency syndrome) ([facility]) 03/18/2013 Cholecystitis with cholelithiasis Gallstones GERD (gastroesophageal reflux disease) HIV disease ([facility]) Around 2006 PAST SURGICAL HISTORY Procedure Laterality Date EGD 07/21/2018 LAPAROSCOPY SURG CHOLECYSTECTOMY 05/19/2015 PAST SURGICAL HISTORY OF lesion removed from ear PAST SURGICAL HISTORY OF bilateral carpal tunnel ALLERGIES Amoxicillin MEDICATIONS citalopram (CELEXA) 20 mg tablet Take by mouth once daily. atorvastatin (LIPITOR) 20 mg tablet levothyroxine (SYNTHROID) 25 mcg tablet Omeprazole 40 mg capsule emytgfbfdlwr-mamywztgds-bhfzcvng abine-tenofovir (GENVOYA) [phone] mg per tablet Take 1 tablet by mouth once daily. Take with food. lisinopril 10 mg ORAL tablet Take 1 tablet by mouth once daily. cyclobenzaprine (FLEXERIL) 10 mg tablet Take 1 tablet by mouth three times daily as needed for muscle spasm. montelukast (SINGULAIR) 10 mg tablet ranitidine (ZANTAC) 150 mg tablet dicyclomine (BENTYL) 10 mg capsule Take 1 capsule by mouth before meals and at bedtime. FAMILY HISTORY Problem Relation Age of Onset Cancer Mother thyroid Lipids Mother Hypertension Father Diabetes Father Lipids Father None Sister Diabetes Paternal Grandmother Hypertension Paternal Grandmother Heart Paternal Grandfather Hypertension Paternal Grandfather Social History Tobacco Use Smoking status: Current Every Day Smoker Packs/day: 0.50 Types: Cigarettes Smokeless tobacco: Never Used Substance Use Topics Alcohol use: Yes Comment: occasional Drug use: Never Review of Systems Constitutional: Negative for activity change, appetite change, chills and fever. Eyes: Negative for pain, discharge, redness and itching. Respiratory: Negative for apnea, cough, choking and chest tightness. Cardiovascular: Negative for chest pain, palpitations and leg swelling. Gastrointestinal: Negative for abdominal pain, diarrhea, nausea and vomiting. Musculoskeletal: Negative for arthralgias, back pain, gait problem, gout and stiffness. Skin: Negative for color change, itching, pallor, rash and wound. Allergic/Immunologic: Negative for environmental allergies, food allergies and immunocompromised state. Neurological: Negative for dizziness, tingling, facial asymmetry, light-headedness, numbness and headaches. Hematological: Negative for adenopathy. Does not bruise/bleed easily. Psychiatric/Behavioral: Negative for agitation, behavioral problems and confusion. Objective BP 134/86 Pulse 107 Temp 36.3 C (97.3 F) Resp 20 Wt 96.3 kg (212 lb 3.2 oz) SpO2 96% BMI 33.74 kg/m Physical Exam Vitals and nursing note reviewed. Constitutional: General: He is not in acute distress. Appearance: Normal appearance. He is not ill-appearing, toxic-appearing or diaphoretic. HENT: Head: Normocephalic and atraumatic. Right Ear: External ear normal. Left Ear: External ear normal. Nose: Nose normal. No congestion or rhinorrhea. Mouth/Throat: Mouth: Mucous membranes are moist. Pharynx: Oropharynx is clear. No oropharyngeal exudate or posterior oropharyngeal erythema. Eyes: General: Right eye: No discharge. Left eye: No discharge. Extraocular Movements: Extraocular movements intact. Conjunctiva/sclera: Conjunctivae normal. Pupils: Pupils are equal, round, and reactive to light. Cardiovascular: Rate and Rhythm: Normal rate and regular rhythm. Pulses: Normal pulses. Heart sounds: Normal heart sounds. No murmur heard. No friction rub. No gallop. Pulmonary: Effort: Pulmonary effort is normal. No respiratory distress. Breath sounds: Normal breath sounds. No stridor. No wheezing, rhonchi or rales. Chest: Chest wall: No tenderness. Abdominal: General: Abdomen is flat. There is no distension. Palpations: Abdomen is soft. There is no mass. Tenderness: There is no abdominal tenderness. There is no guarding or rebound. Hernia: No hernia is present. Musculoskeletal: General: No swelling, tenderness, deformity or signs of injury. Normal range of motion. Cervical back: Normal range of motion and neck supple. No rigidity or tenderness. Right lower leg: No edema. Left lower leg: No edema. Legs: Lymphadenopathy: Cervical: No cervical adenopathy. Skin: General: Skin is warm and dry. Capillary Refill: Capillary refill takes less than 2 seconds. Coloration: Skin is not jaundiced or pale. Findings: No bruising, lesion or rash. Neurological: General: No focal deficit present. Mental Status: He is alert and oriented to person, place, and time. Cranial Nerves: No cranial nerve deficit. Sensory: No sensory deficit. Motor: No weakness. Coordination: Coordination normal. Gait: Gait normal. Deep Tendon Reflexes: Reflexes normal. Psychiatric: Mood and Affect: Mood normal. Behavior: Behavior normal. Thought Content: Thought content normal. Assessment and Plan ASSESSMENT/PLAN: 1. Foot pain, right - ICD9: 729.5, ICD10: M79.671 X few days ?? Trauma when falling over dog +TTP right lateral foot. - XR FOOT GENERAL 3V AP/LAT/OBL RIGHT-negative for fracture Post Op shoe RICE therapy RX Flexeril OTC analgesics - CONSULT TO PODIATRY if symptoms continue. Hardeep Mcdermott APRN.INDEPENDENT PRODUCER documented in this encounter [facility] Sensorineural hearing loss, bilateral- Primary Tinnitus, bilateral Unspecified tinnitus [facility] Acute cough- Primary Globus sensation Gastrointestinal malfunction arising from mental factors documented in this encounter [facility] Summary Purpose Family History No Family History Records FoundNo Family History Records FoundNo Family History Records Found Advance Directives No Advanced Directives Records FoundDocuments on File Type Date 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 Advance Directive(s) Reason for Referral Specialty Diagnoses / Procedures Referred By Michael brooks Referred To Contact Podiatry Diagnoses Foot pain, right Procedures CONSULT TO PODIATRY OFFICE/[facility] 60-74 MINUTES Hardeep Mcdermott APRN.INDEPENDENT PRODUCER [address] [place] [address] Referral ID Status Reason Start Date Expiration Date Visits Requested Visits Authorized [id number] Authorized PCP Requested Referral 09/09/2021 09/09/2022 1 1 Specialty Diagnoses / Procedures Referred By Michael brooks Referred To Contact XR IMAGING Diagnoses Foot pain, right Procedures XR FOOT GENERAL 3V AP/LAT/OBL RIGHT RADEX FOOT COMPLETE MINIMUM 3 VIEWS Hardeep Mcdermott APRN.INDEPENDENT PRODUCER [address] [place] [address] Xr Imaging Referral ID Status Reason Start Date Expiration Date V isits Requested Visits Authorized [id number] Closed Auto-Generate d Referral 09/09/2021 10/09/2022 1 1 Specialty Diagnoses / Procedures Referred By Contac t Referred To Contact Ching Newell APRN.INDEPENDENT PRODUCER [address] [place] [address] Referral ID Status Reason Start Date Expiration Date Visits Re quested Visits Authorized [id number] Closed 1 1 Additional Source Comments (unrecognized sect ion and content) No Status Records FoundNo Status Records FoundNo Status Records Found INFORMATION SOURCE (unrecogn ized section and content) DATE CREATED AUTHOR AUTHOR'S ORGANIZ ATION 10/08/2019 [facility] DATE CREATED AUTHOR AUTHOR'S ORGANIZ ATION 07/06/2022 [facility] Source Comments (unrecognize d section and content) In the event this informatio n is protected by the Federal Confidentiality of Alcohol and Drug Abuse Patient Records regulations: The Federal rules restrict any use of the information to criminally investigate or prosecute any alcohol or drug abuse patient.[facility] the event this information is protected by the Federal Confidentiality of Alcohol and Drug Abuse Patient Records regulations: The Federal rules restrict any use of the information to criminally investigate or prosecute any alcohol or drug abuse patient.[facility] the event this information is protected by the Federal Confidentiality of Alcohol and Drug Abuse Patient Records regulations: The Federal rules restrict any use of the information to criminally investigate or prosecute any alcohol or drug abuse patient.[facility] the event this information is protected by the Federal Confidentiality of Alcohol and Drug Abuse Patient Records regulations: The Federal rules restrict any use of the information to criminally investigate or prosecute any alcohol or drug abuse patient.[facility] the event this information is protected by the Federal Confidentiality of Alcohol and Drug Abuse Patient Records regulations: The Federal rules restrict any use of the information to criminally investigate or prosecute any alcohol or drug abuse patient.[facility] Reason for Visit (unrecogniz ed section and content) Reason Comments Hearing Loss Ringing In Ear(s) Au Reason Comments Cough sob x 1 week Reason Comments Results Care Teams (unrecognized sec tion and content) Director Data Processing Relationship Specialty Start Date End Date Crystal Sterling, DO [address] [place] [address] PCP - General Family Practice 06/25/18 Director Data Processing Relationship Specialty Start Date End Date Clinic, [facility] [address] [place] [address] PCP - General 07/04/22 Director Data Processing Relationship Specialty Start Date End Date Clinic, [facility] [address] [place] [address] PCP - General 07/04/22 Director Data Processing Relationship Specialty Start Date End Date Clinic, [facility] [place] [address] PCP - General 07/04/22 FOR RECORDS PERTAINING TO PATIENTS WHO ARE OR HAVE BEEN ENROLLED IN A CHEMICAL DEPENDENCY/SUBSTANCEABUSE PROGRAM, SOME INFORMATION MAY BE OMITTED. This clinical summary was aggregated from multiple sources. Caution should be exercised in using it in the provision of clinical care. This summary normalizes information from multiple sources, and as a consequence, information in this document may materially change the coding, format and clinical context of patient data. In addition, data may be omitted in some cases. CLINICAL DECISIONS SHOULD BE BASED ON THE PRIMARY CLINICAL RECORDS. [facility]. provides no warranty or guarantee of the accuracy or completeness of information in this document.
[2023-03-14 08:36] LABS: Hematocrit 40.9 % (40-54); Hemoglobin 13.9 g/dL (13.0-16.5); Mean Corpuscular Hgb 30.2 pg (27.0-32.0); Mean Corpuscular Volume 88.7 fL (80-94); Mean Platelet Vol. 9.3 fl (6.2-12.0); Platelet Count 334 K/mm3 (150-450); RBC Distribution Width CV 12.1 % (11.6-14.6); Red Blood Count 4.61 M/mm3 (4.6-6.2); White Blood Count 7.5 K/mm3 (4.4-11.0)
[2023-03-14 09:01] LABS: AST(SGOT) 13 U/L (15-37); Alanine Aminotransfer ALT/SGPT 33 U/L (16-61); Albumin, Serum 3.6 g/dL (3.2-5.0); Alkaline Phosphatase 147 U/L (45-117); Anion Gap 6 (5-15); BUN 13 mg/dL (7-18); BUN/Creat Ratio 13.3 RATIO (10-20); Bilirubin, Direct 0.07 mg/dL (0.00-0.30); Calcium,Total 9.3 mg/dL (8.5-10.1); Chloride 105 mmol/L (98-107); Creatinine, Serum 0.98 mg/dL (0.70-1.30); EST Glomerular Filtration Rate 87 mL/min (>60); Est Glom Filt Rate - Afr Amer 105 mL/min (>60); Globulin 4.1 g/dL (2.2-4.2); Glucose 177 mg/dL (74-106); Potassium 3.8 mmol/L (3.5-5.1); Protein, Total 7.7 g/dL (6.4-8.2); Sodium Level 137 mmol/L (136-145)
[2023-03-16 05:08] LABS: Absolute CD4 Helper 367 /uL (359-1519); Basophils (Absolute) 0.1 x10E3/uL (0.0-0.2); Eosinophils 1 % (Not Estab.); Eosinophils (Absolute) 0.1 x10E3/uL (0.0-0.4); HEPATITIS B SURFACE AG Negative (Negative); Hematocrit 41.6 % (37.5-51.0); Hep C Antibodies Non Reactive (Non Reactive); Hepatitis A IgM Antibody Negative (Negative); Hepatitis B Core AB IgM Negative (Negative); Immature Granulocytes 0 % (Not Estab.); Immature Granulocytes Absolute 0 x10E3/uL (0.0-0.1); Lymphs 24 % (Not Estab.); Lymphs (Absolute) 1.8 x10E3/uL (0.7-3.1); MCH 30.4 pg (26.6-33.0); MCHC 33.7 g/dL (31.5-35.7); MCV 90 fL (79-97); Monocytes 8 % (Not Estab.); Monocytes (Absolute) 0.6 x10E3/uL (0.1-0.9); Neutrophils 66 % (Not Estab.); Neutrophils (Absolute) 4.7 x10E3/uL (1.4-7.0); Percent % CD4 Pos. Lymph. 20.4 % (30.8-58.5); Platelets 346 x10E3/uL (150-450); RBC Count 4.61 x10E6/uL (4.14-5.80); RDW 12.6 % (11.6-15.4); WBC Count 7.2 x10E3/uL (3.4-10.8)
[2023-03-16 13:07] LABS: HIV-1 RNA by PCR, Quant. 40 copies/mL (.); LOG10 HIV-1 RNA 1.602 (.)
== END | disposition home or self-care (01) ==
PROVIDERS: Referring Provider Internal Medicine Infectious Disease; Visit Provider Internal Medicine Infectious Disease
DX: B20 Human immunodeficiency virus [HIV] disease (principal)
CPT/HCPCS: 36415; 80048; 80074; 80076; 85027; 86361; 87536

== ENCOUNTER 2023-03-23 08:05 | Day surgery (SDC) | payer MEDICAID, SELFPAY ==
--- NOTE | 2023-03-23 | COLBX_PTH ---
PATHOLOGY RESULTS PATIENT: BECKY JONES LOC: EN U#:[id number] AGE/SX: 47/M ROOM: RE03/23/[address]: Dr. Kleber Sutherland MD : 1975 BED: DIS: 03/23/2023 SPEC #: [id number] RECD: 03/23/23 13:17 STATUS: [place]UN #: [id number] MICHEAL: 03/23/23 00:[address]: Kleber Sutherland DEPT: SURGICAL PATHOLOGY RECD BY: Venu Reyes ENTERED: 03/23/23 13:18 SP TYPE: COLON BX OTHR DR: [facility] Tissues: Transverse colon Rectum, NOS Procedures: Surgery Specimen Level IV HEADER OPERATION: Colonoscopy - open access, polypectomy, biopsy PRE-OP DIAGNOSIS: Screening TISSUE SUBMITTED: A - Proximal transverse polyp, B - Rectal polyp biopsy MICROSCOPIC DIAGNOSIS A. Proximal transverse colon polyp, polypectomy: Fragments of inflammatory polyp. B. Rectal polyp, biopsy: Hyperplastic polyp. SARBJIT:beth 03/24/2023 MICROSCOPIC DESCRIPTION Slides are reviewed. GROSS DESCRIPTION A - Received in fixative is one container labeled with the patient's name and designated proximal transverse colon polyp. The specimen consists of multiple irregular fragments of light ortega soft tissue that in aggregate measure 1.0 x 1.0 x 0.3 cm. The specimen is totally submitted in one cassette. B - Received in fixative is one container labeled with the patient's name and designated rectal polyp biopsy. The specimen consists of one irregular fragment of light ortega soft tissue that measures 0.3 x 0.3 x 0.1 cm. The specimen is totally submitted in one cassette. / SARBJIT:beth 03/23/2023 TC:5 CPT: 15957 x2
--- OUTSIDE RECORDS SUMMARY | 2023-03-23 08:34 | XMS RPT_ITS | CCD ---
Author Name Unknown Address [address] [place] [address] Organization [facility] Care Team Providers Care Route Sales Person Name Role Phone Danay Valverde LPN Unavailable Unavailable Ayah GIL, Radha Vieyra Unavailable PROVIDER, UNKNOWN Admitting Unavailable PROVIDER, UNKNOWN Attending Unavailable Crystal Sterling DO Primary Care Provider Crystal Sterling DO Primary Care Provider [facility], Vesna Stockton Primary Care Provider Un available CRYSTAL STERLING Primary Care Unavailable CHING NEWELL Referring Unavailable HERNÁN HAMPTON Attending Unavaila CRYSTAL Woodruff Primary Care Unavailable CRYSTAL STERLING Primary Care Unavailable HAREDEP MCDERMOTT Referring Unavailable Allergies Allergy Classification Reported Allergen(s) Allergy Type Date of Onset Reaction(s) Facility (9 sources) amoxicillin; Translations: [AMOXICILLIN] drug allergy 03-04-2013 Unknown [facility] Work Phone: (3 sources) amoxicillin / clavulanate drug allergy [facility] Work Phone: Medications Completed/Discontinued Medications Medication Drug Class(es) Dates Sig (Normalized) Sig (Original) OXYCODONE-ACETAMINO PHEN (6 sources) Opioid Agonist Start: 12-06-2011 End: 03-22-2012 PERCOCET 5-325 MG TABS one at night time for pain, may repeat x 1 OXYCODONE-ACETAMINOP HEN [id number] Radha Poon MD Problems Active Problems Problem [...] 97.9 [degF] Ching Newell APRN.CNP Work Phone: [facility] 07-04-2022 14:49-0400 Body weight 97.98 kg Ching Newell APRN.CNP Work Phone: [facility] 07-04-2022 14:49-0400 Diastolic blood pressure 64 mm[Hg] Ching Newell APRN.CNP Work Phone: [facility] 07-04-2022 14:49-0400 Heart rate 110 /min Ching Newell APRN.CNP Work Phone: [facility] 07-04-2022 14:49-0400 Respiratory rate 16 /min Ching Newell APRN.CNP Work Phone: [facility] 07-04-2022 14:49-0400 SaO2% (BldA) [Mass fraction] 96 % Ching Newell APRN.CNP Work Phone: [facility] 07-04-2022 14:49-0400 Systolic blood pressure 122 mm[Hg] Ching Newell SSIS ETL DEVELOPER.RESERVOIR ENGINEERING MANAGER Work Phone: [facility] 09-09-2021 08:54-0400 Body temperature 97.3 [degF] Hardeep Mcdermott SSIS ETL DEVELOPER.RESERVOIR ENGINEERING MANAGER Work Phone: [facility] 09-09-2021 08:54-0400 Body weight 96.25 kg Hardeep Mcdermott SSIS ETL DEVELOPER.RESERVOIR ENGINEERING MANAGER Work Phone: [facility] 09-09-2021 08:54-0400 Diastolic blood pressure 86 mm[Hg] Hardeep Mcdermott SSIS ETL DEVELOPER.RESERVOIR ENGINEERING MANAGER Work Phone: [facility] 09-09-2021 08:54-0400 Heart rate 107 /min Hardeep Mcdermott SSIS ETL DEVELOPER.RESERVOIR ENGINEERING MANAGER Work Phone: [facility] 09-09-2021 08:54-0400 Respiratory rate 20 /min Hardeep Mcdermott SSIS ETL DEVELOPER.RESERVOIR ENGINEERING MANAGER Work Phone: [facility] 09-09-2021 08:54-0400 SaO2% (BldA) [Mass fraction] 96 % Hardeep Mcdermott SSIS ETL DEVELOPER.RESERVOIR ENGINEERING MANAGER Work Phone: [facility] 09-09-2021 08:54-0400 Systolic blood pressure 134 mm[Hg] Hardeep Mcdermott SSIS ETL DEVELOPER.RESERVOIR ENGINEERING MANAGER Work Phone: [facility] 06-27-2016 11:18-0400 BMI (Body Mass Index) 34.12 [...] Start: 07-04-2022 End: 07-04-2022 ambulatory CHING ANAY Facility:[facility] Start: 07-04-2022 End: 07-04-2022 Patient encounter procedure Ching Newell SSIS ETL DEVELOPER.RESERVOIR ENGINEERING MANAGER Work Phone: [facility] Procedures Date [...] Poon MD Start: 09-02-2015 End: 09-03-2015 SNOMED-CT: [id number] Clinical consultation report Radha Poon MD Start: 05-11-2015 End: 05-12-2015 Referral to construction services technician Radha Poon MD Start: 03-09-2015 End: 03-30-2015 [...] Surface Antigen 6510 Radha Poon MD Start: 02-23-2015 End: 02-25-2015 *Hep C [...] Author Start: 02-27-2022 DEPRESSION ASSESSMENT DEPRESSION ASSESSMENT [facility] Start: 12-03-2021 COVID-19 VACCINE (5 - Booster for Pfizer series) COVID-19 VACCINE (5 - Booster for Pfizer series) [facility] Start: 10-28-2021 Influenza vaccination INFLUENZA (#1) [facility] Start: 09-28-2021 COVID-19 VACCINE (5 - Booster for Pfizer series) COVID-19 VACCINE (5 - Booster for Pfizer series) [facility] Start: 07-25-2021 LIPID SCREEN LIPID SCREEN [facility] Start: 06-08-2021 COVID-19 VACCINE (4 - Booster for Pfizer series) COVID-19 VACCINE (4 - Booster for Pfizer series) [facility] Start: 06-14-2019 COLOGUARD (FIT-DNA) COLOGUARD (FIT-DNA) [facility] Start: 06-14-2019 Colonoscopy COLONOSCOPY [facility] Start: 06-14-2019 COLORECTAL CANCER SCREENING COLORECTAL CANCER SCREENING [facility] Start: 06-14-[address] COLONOGRAPHY [facility] Start: 06-14-2019 DIABETES SCREEN DIABETES SCREEN [facility] Start: 06-14-2019 FECAL OCCULT BLOOD FECAL OCCULT BLOOD [facility] Start: 06-14-2019 SIGMOIDOSCOPY SIGMOIDOSCOPY [facility] Start: 04-29-2018 Urine microalbumin profile DTAP,TDAP,TD (2 - Tdap) [facility] Start: 07-11-2016 End: 07-11-2016 *MISC - Miscellaneous Lab Test #1 *MISC - Miscellaneous Lab Test #1 [facility] Work Phone: Start: 06-27-2016 End: 06-27-2016 Appointment Appointment [facility] Work Phone: Start: 06-27-2016 End: 07-25-2016 *CBC with Differential *CBC with Differential [facility] Work Phone: Start: 06-27-2016 End: 07-25-2016 *CD4 - T Cells, Absolute CD4 Count *CD4 - T Cells, Absolute CD4 Count [facility] Work Phone: Start: 06-27-2016 End: 07-25-2016 *CMP Complete Metabolic Panel *CMP Complete Metabolic Panel [facility] Work Phone: Start: 06-27-2016 End: 07-25-2016 *MISC - Miscellaneous Lab Test #1 *MISC - Miscellaneous Lab Test #1 [facility] Work Phone: Start: 06-27-2016 End: 07-25-2016 Hepatitis C virus RNA [Presence] in Blood by TERRIE with probe detection *Hep C Viral Load [facility] Work Phone: Start: 06-27-2016 End: 07-25-2016 HIV 1 viral load *HIVVL HIV-1, Viral Load Determined by PCR [facility] Work Phone: Start: 06-27-2016 End: 07-25-2016 Mycobacterium tuberculosis tuberculin stimulated gamma interferon [Presence] in Blood *QFTBINC Quantiferon TB Gold [facility] Work Phone: Start: 06-27-2016 End: 07-25-2016 Thyroid stimulating hormone (TSH) *TSH [facility] Work Phone: Start: 03-08-2016 End: 07-25-2016 *MISC - Miscellaneous Lab Test #1 *MISC - Miscellaneous Lab Test #1 [facility] Work Phone: Start: 03-08-2016 End: 07-25-2016 Treponema pallidum Ab [Presence] in Serum by Immunofluorescence *FTA - FTA - ABS.CSF [facility] Work Phone: Start: 02-16-2016 End: 07-25-2016 *CBC with Differential *CBC with Differential [facility] Work Phone: Start: 02-16-2016 End: 07-25-2016 *CD4 - T Cells, Absolute CD4 Count *CD4 - T Cells, Absolute CD4 Count [facility] Work Phone: Start: 02-16-2016 End: 07-25-2016 *CMP Complete Metabolic Panel *CMP Complete Metabolic Panel [facility] Work Phone: Start: 02-16-2016 End: 07-25-2016 *HEBSAG - Hep B Surface Antigen 6510 *HEBSAG - Hep B Surface Antigen 6510 [facility] Work Phone: Start: 02-16-2016 End: [...] Serum *HEAT Hepatitis A Antibdy - IGG/IGM [facility] Work Phone: Start: 02-16-2016 End: 07-25-2016 HIV 1 viral load *HIVVL HIV-1, Viral Load Determined by PCR [facility] Work Phone: Start: 02-16-2016 End: 07-25-2016 Lipid panel [AGGREGATE] *Lipid Profile [facility] Work Phone: Start: 02-16-2016 End: 07-25-2016 Reagin antibody presence *RPR [facility] Work Phone: Start: 02-16-2016 End: 07-25-2016 Thyroid stimulating hormone (TSH) *TSH [facility] Work Phone: Start: 05-11-2015 End: 05-13-2015 Podiatry Referral Podiatry Referral [facility], [address] [place] [address], [id number] [facility] Work Phone: Start: 04-14-2015 End: 04-14-2015 Urinalysis complete panel - Urine *UAC- Urinalysis, Complete w/ Micro [facility] Work Phone: Start: 04-13-2015 End: 04-13-2015 Contrst x-ray, urinary tract X-Ray, KUB [facility] Work Phone: Start: 04-13-2015 End: 04-13-2015 X-ray exam of lower spine X-Ray, Spine, Lumbosacral 2-3 views [facility] Work Phone: Start: 03-09-2015 End: [...] *HEBSAG - Hep B Surface Antigen 6510 [facility] Work Phone: Start: 02-23-2015 End: 02-25-2015 *Hep C Antibody, Total *Hep C Antibody, Total [facility] Work Phone: Start: 02-23-2015 End: 02-23-2015 25-Hydroxyvitamin D2+25-Hydroxyvitamin D3 [Mass/volume] in Serum or Plasma *Vitamin D (Calciferol) [facility] Work Phone: Start: 02-23-2015 End: 02-26-2015 BSA (Body Surface Area) *HEBSAB - Hep B Surface Antibody 6395 [facility] Work Phone: Start: 02-23-2015 End: 02-25-2015 HbA1c *HgA1C [facility] Work Phone: Start: 02-23-2015 End: 02-25-2015 Hepatitis A virus Ab [Presence] in Serum *HEAT Hepatitis A Antibdy - IGG/IGM [facility] Work Phone: Start: 02-23-2015 End: 02-26-2015 Hepatitis A virus IgM Ab [Presence] in Serum *HEAM Hepatitis A Antibdy - IGM [facility] Work Phone: Start: 02-23-2015 End: 03-02-2015 HIV 1 viral load *HIVVL HIV-1, Viral Load Determined by PCR [facility] Work Phone: Start: 02-23-2015 End: 02-23-2015 Inj tendon sheath/ligament Injection, Pain Trigger Point [facility] Work Phone: Start: 02-23-2015 End: 02-23-2015 Kenalog per 10 mg Kenalog per 10 mg [facility] Work Phone: Start: 02-23-2015 End: 02-25-2015 Lipid panel [AGGREGATE] *Lipid Profile [facility] Work Phone: Start: 02-23-2015 End: 02-23-2015 Reagin antibody presence *RPR [facility] Work Phone: Start: 02-23-2015 End: 02-25-2015 Thyroid stimulating hormone (TSH) *TSH [facility] Work Phone: Start: 01-30-2015 End: 04-15-2015 Physical Therapy General Physical Therapy [facility], [address] [place] [address], [id number] [facility] Work Phone: Start: 11-12-2014 End: 03-04-2015 *CBC with Differential *CBC with Differential [facility] Work Phone: Start: 11-12-2014 End: 03-04-2015 *CD4 - T Cells, Absolute CD4 Count *CD4 - T Cells, Absolute CD4 Count [facility] Work Phone: Start: 11-12-2014 End: 03-04-2015 *CMP Complete Metabolic Panel *CMP Complete Metabolic Panel [facility] Work Phone: Start: 11-12-2014 End: 03-04-2015 *Hep C Antibody, Total *Hep C Antibody, Total [facility] Work Phone: Start: 11-12-2014 End: 03-04-2015 HbA1c *HgA1C [facility] Work Phone: Start: 11-12-2014 End: 03-04-2015 HIV 1 viral load *HIVVL HIV-1, Viral Load Determined by PCR [facility] Work Phone: Start: 11-12-2014 End: 11-12-2014 Lipid panel [AGGREGATE] *Lipid Profile [facility] Work Phone: Start: 10-17-2014 End: 10-30-2014 Postop follow-up visit Post Operative Visit [facility] Work Phone: Start: 08-13-2014 End: 08-13-2014 Orthopedic Referral Orthopedic Referral Alicia Rodriguez, [facility], [address] [place] [address] [address], [place], [address] [facility] Work Phone: Start: 05-21-2014 End: 05-26-2014 *CD4 - T Cells, Absolute CD4 Count *CD4 - T Cells, Absolute CD4 Count [facility] Work Phone: Start: 05-21-2014 End: 05-29-2014 HIV 1 viral load *HIVVL HIV-1, Viral Load Determined by PCR [facility] Work Phone: Start: 05-13-2014 End: 05-15-2014 *CD4 - T Cells, Absolute CD4 Count *CD4 - T Cells, Absolute CD4 Count [facility] Work Phone: Start: 05-13-2014 End: 05-16-2014 HIV 1 viral load *HIVVL HIV-1, Viral Load Determined by PCR [facility] Work Phone: Start: 04-02-2014 End: 05-15-2014 HIV 1 viral load *HIVVL HIV-1, Viral Load Determined by PCR [facility] Work Phone: Start: 04-02-2014 End: 05-15-2014 Nerve Conduction Nerve Conduction [facility] Work Phone: Start: 03-21-2014 End: 03-24-2014 *CBC with Differential *CBC with Differential [facility] Work Phone: Start: 03-21-2014 End: 03-24-2014 *CD4 - T Cells, Absolute CD4 Count *CD4 - T Cells, Absolute CD4 Count [facility] Work Phone: Start: 03-21-2014 End: 03-24-2014 *CMP Complete Metabolic Panel *CMP Complete Metabolic Panel [facility] Work Phone: Start: 03-21-2014 End: 03-24-2014 *HEBSAG - Hep B Surface Antigen 6510 *HEBSAG - Hep B Surface Antigen 6510 [facility] Work Phone: Start: 03-21-2014 End: 03-24-2014 *Hep C Antibody, Total *Hep C Antibody, Total [facility] Work Phone: Start: 03-21-2014 End: 03-24-2014 1,25-Dihydroxyvitamin D [Mass/volume] in Serum or Plasma *[id number] Vitamin D, 1, 25- DiHydroxy [facility] Work Phone: Start: 03-21-2014 End: 03-24-2014 25-Hydroxyvitamin D2+25-Hydroxyvitamin D3 [Mass/volume] in Serum or Plasma *Vitamin D (Calciferol) [facility] Work Phone: Start: 03-21-2014 End: [...] *HIVVL HIV-1, Viral Load Determined by PCR [facility] Work Phone: Start: 03-21-2014 End: 03-24-2014 Lipid panel [AGGREGATE] *Lipid Profile [facility] Work Phone: Start: 03-21-2014 End: 03-24-2014 Reagin antibody presence *RPR [facility] Work Phone: Start: 03-21-2014 End: 03-24-2014 Thyroid stimulating hormone (TSH) *TSH [facility] Work Phone: Start: 12-03-2012 End: 03-24-2014 *CD4 - T Cells, Absolute CD4 Count *CD4 - T Cells, Absolute CD4 Count [facility] Work Phone: Start: 12-03-2012 End: 03-24-2014 HIV 1 viral load *HIVVL HIV-1, Viral Load Determined by PCR [facility] Work Phone: Start: 11-27-2012 End: 03-24-2014 Glucose *Glucose, Fasting [facility] Work Phone: Start: 11-27-2012 End: 03-24-2014 Mycobacterium tuberculosis tuberculin stimulated gamma interferon [Presence] in Blood *QFTBINC Quantiferon TB Gold [facility] Work Phone: Start: 11-27-2012 End: 03-24-2014 Reagin antibody presence *RPR [facility] Work Phone: Start: 07-25-2012 End: 03-24-2014 *CBC with Differential *CBC with Differential [facility] Work Phone: Start: 07-25-2012 End: 03-24-2014 *CD4 - T Cells, Absolute CD4 Count *CD4 - T Cells, Absolute CD4 Count [facility] Work Phone: Start: 07-25-2012 End: 03-24-2014 *CMP Complete Metabolic Panel *CMP Complete Metabolic Panel [facility] Work Phone: Start: 07-25-2012 End: 03-24-2014 HbA1c *HgA1C [facility] Work Phone: Start: 07-25-2012 End: 03-24-2014 HIV 1 viral load *HIVVL HIV-1, Viral Load Determined by PCR [facility] Work Phone: Start: 07-25-2012 End: 03-24-2014 Lipid panel [AGGREGATE] *Lipid Profile [facility] Work Phone: Start: 07-25-2012 [...] 03-24-2014 *CBC with Differential *CBC with Differential [facility] Work Phone: Start: 03-21-2012 End: 03-24-2014 *CD4 - T Cells, Absolute CD4 Count *CD4 - T Cells, Absolute CD4 Count [facility] Work Phone: Start: 03-21-2012 End: 03-24-2014 *CMP Complete Metabolic Panel *CMP Complete Metabolic Panel [facility] Work Phone: Start: 03-21-2012 End: 03-24-2014 Lipid panel [AGGREGATE] *Lipid Profile [facility] Work Phone: Start: 03-21-2012 End: 03-24-2014 Thyroid stimulating hormone (TSH) *TSH [facility] Work Phone: Start: 02-02-2012 Diabetic foot examination ID SYPHILIS SCREENING [facility] Start: 02-02-2012 Pneumococcal conjugate vaccination ID URINALYSIS [facility] Start: 02-02-2012 Varicella vaccination ID LIPID PROFILE [facility] Start: 12-06-2011 End: 03-21-2012 HIV 1 viral load *HIVVL HIV-1, Viral Load Determined by PCR [facility] Work Phone: Start: 11-30-2011 End: 03-21-2012 *CBC with Differential *CBC with Differential [facility] Work Phone: Start: 11-30-2011 End: 03-21-2012 *CD4 - T Cells, Absolute CD4 Count *CD4 - T Cells, Absolute CD4 Count [facility] Work Phone: Start: 11-30-2011 End: 03-21-2012 *CMP Complete Metabolic Panel *CMP Complete Metabolic Panel [facility] Work Phone: Start: 11-30-2011 End: 03-21-2012 HbA1c *HgA1C [facility] Work Phone: Start: 11-30-2011 End: 03-21-2012 HIV 1 viral load *HIVVL HIV-1, Viral Load Determined by PCR [facility] Work Phone: Start: 11-30-2011 End: 03-21-2012 Lipid panel [AGGREGATE] *Lipid Profile [facility] Work Phone: Start: 11-30-2011 End: 03-21-2012 Thyroid stimulating hormone (TSH) *TSH [facility] Work Phone: Start: 08-03-2011 Diphtheria + tetanus + acellular pertussis vaccine (product) ID VIRAL LOAD [facility] Start: 08-03-2011 Rotavirus vaccination ID CD4 COUNT [facility] Start: 05-08-2010 ID HEPATITIS B SURFACE ANTIBODY ID HEPATITIS B SURFACE ANTIBODY [facility] Start: 05-08-2010 ID HEPATITIS C ANTIBODY ID HEPATITIS C ANTIBODY [facility] Start: 05-05-2010 ID TB TESTING ID TB TESTING [facility] Start: 05-27-2008 PNEUMOCOCCAL (2 - PCV) PNEUMOCOCCAL (2 - PCV) [facility] Start: 1993 SHINGRIX VACCINE (1 of 2) SHINGRIX VACCINE (1 of 2) [facility] Start: 1992 Hepatitis A immunization ID ANAL PAP [facility] Start: 1992 ID HIV COUNSELING ID HIV COUNSELING [facility] Start: 1992 Csehzxm-[id number] vaccination ID DENTAL VISIT/REFERRAL [facility] Start: 1992 MMR (1 of 2 - Risk 2-dose series) MMR (1 of 2 - Risk 2-dose series) [facility] Start: 1986 Adult depression screening assessment DEPRESSION SCREENING [facility] Start: 1976 MENINGOCOCCAL CONJUGATE (1 - Risk 2-dose series) MENINGOCOCCAL CONJUGATE (1 - Risk 2-dose series) [facility] Start: 01-13-1975 MENINGOCOCCAL CONJUGATE (1 - Risk start 2-23 months series) MENINGOCOCCAL CONJUGATE (1 - Risk start 2-23 months series) [facility] Patient Education HIV%20INFECTION [facility] Work Phone: [facility] Immunizations Immunization Date Immunization Notes Care Provider Fa cility 02-01-2011 influenza virus vacc ine, unspecified formulation Hardeep Mcdermott SSIS ETL DEVELOPER.RESERVOIR ENGINEERING MANAGER Work Phone: [facility] 01-20-2010 influenza virus vacc ine, unspecified formulation Hardeep Mcdermott SSIS ETL DEVELOPER.RESERVOIR ENGINEERING MANAGER Work Phone: [facility] 05-05-2009 hepatitis A vaccine, unspecified formulation Hardeep Mcdermott SSIS ETL DEVELOPER.RESERVOIR ENGINEERING MANAGER Work Phone: [facility] 05-05-2009 novel influenza-H1N1 -09, all formulations Hardeep Mcdermott SSIS ETL DEVELOPER.RESERVOIR ENGINEERING MANAGER Work Phone: [facility] 12-10-2008 influenza virus vacc ine, unspecified formulation Hardeep Mcdermott SSIS ETL DEVELOPER.RESERVOIR ENGINEERING MANAGER Work Phone: [facility] 04-29-2008 diphtheria, tetanus toxoids and acellular pertussis vaccine Hardeep Mcdermott SSIS ETL DEVELOPER.RESERVOIR ENGINEERING MANAGER Work Phone: [facility] 01-18-2008 hepatitis A vaccine, unspecified formulation Hardeep Mcdermott SSIS ETL DEVELOPER.RESERVOIR ENGINEERING MANAGER Work Phone: [facility] 01-18-2008 influenza virus vacc ine, unspecified formulation Hardeep Mcdermott SSIS ETL DEVELOPER.RESERVOIR ENGINEERING MANAGER Work Phone: [facility] 05-28-2007 pneumococcal polysaccharide vaccine, 23 valent Hardeep Mcdermott SSIS ETL DEVELOPER.RESERVOIR ENGINEERING MANAGER Work Phone: [facility] Payers Date Payer Category Payer Medicaid [employer] [id number] 2020-Present [phone] [place] [id number] Medicaid [id number] 2020 Medicaid [id number] 2020 Medicaid [id number] 2019 Unknown [id number] 1974 Unknown [id number] Social History Date Type Detail Facility Start: 07-18-2018 End: 07-04-2022 Tobacco smoking status NHIS Smokes tobacco daily [facility] History of tobacco use Cigarette Smoker [facility] Start: 09-09-2021 End: 07-04-2022 Alcohol intake Current drinker of alcohol (finding) [facility] Start: 07-18-2018 History SDOH Alcohol Comment occasional [facility] Start: 1975 Sex Assigned At Not on file [facility] Start: 08-30-2021 End: 10-12-2021 Exposure to SARS-CoV-2 (event) Not sure [facility] Work Phone: Start: 07-18-2018 End: 07-04-2022 Cigarettes smoked current (pack per day) - Reported 0.[address] [facility] Start: 07-18-2018 End: 07-04-2022 Tobacco use and exposure Smokeless tobacco non-user [facility] Clinical Notes 09-09-2021 to 07-04-2022 Telephone Encounter - Alicia Mariscal MA - 07/04/2022 4:08 PM EDTTelephone Encounter - Sylvie Delaney APRN.CNP - 07/04/2022 3:44 PM EDTPatient InstructionsPatient Instructions Note Date & Type Note Facility 07-04-2022 Note HNO ID: [id number] Author: RT Adama(R) Service: Radiology Author Type: [...] RT Adama(R) July 04, 2022 3:18 PM [facility] 07-04-2022 Note HNO ID: [id number] Author: Ching Newell APRN.SELENA Service: ? Author [...] Diagnosis Date AIDS (acquired immune deficiency syndrome) ([facility]) 03/18/2013 Cholecystitis with cholelithiasis Gallstones GERD (gastroesophageal reflux disease) HIV disease ([facility]) Around 2006 I have confirmed and edited as necessary, the [facility] Review of Systems Constitutional: Negative [...] warranting prompt ER evaluation. Ching Newell APRN.CNP [facility] 07-04-2022 Miscellaneous Notes Patient spoke with Sylvie, notified of results. Alicia Mariscal MA Attempted to call patient about negative x-ray results. Left message for patient to call back. If patient returns call please let him know that the x-ray was negative no acute findings. Thank you documented in this encounter [facility] 07-04-2022 Miscellaneous Notes Spoke with patient about negative x-ray results. Patient will continue care plan as discussed with provider. documented in this encounter [facility] 07-04-2022 Instructions Ching Newell APRN.CNP - 07/04/2022 [...] if no improvement. documented in this encounter [facility] 07-04-2022 History of Presen t illness Narrative [...] Diagnosis Date AIDS (acquired immune deficiency syndrome) ([facility]) 03/18/2013 Cholecystitis with cholelithiasis Gallstones GERD (gastroesophageal reflux disease) HIV disease ([facility]) Around 2006 I have confirmed and edited as necessary, the [facility] Review of Systems Constitutional: Negative [...] Ching Newell APRN.SELENA documented in this encounter [facility] 10-12-2021 Note HNO ID: [id number] Author: KEVIN Leal Service: ? Author Type: Crew Clerk Type: Progress Notes Filed: 10/12/2021 1:16 PM Note Text: Head and Neck Latty AUDIOLOGIC EVALUATION REPORT Name: Becky Jones CC#: [id number] Date of Service: 10/12/2021 Date of : [...] to a severe sensorineural hearing loss from 7123-9690 Hz. Word Recognition Score: Good (80-89%). WRS [...] and provided written educational materials. 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 Head and Neck [facility]ty AUDIOLOGIC EVALUATION REPORT Name: Becky Jones [facility]#: [id number] Date of Service: 10/12/2021 Date of : [...] seen for an initial audiologic evaluation. See [facility] Audiogram for additional reported history and [...] to a severe sensorineural hearing loss from 6774-4781 Hz. Word Recognition Score: Good (80-89%). WRS [...] and provided written educational materials. * Call [phone] to schedule an appointment to assess your [...] TM tympanic membrane documented in this encounter [facility] 09-09-2021 Note HNO ID: [id number] Author: RT Edinson(R) Service: Nuclear Medicine Author [...] RT Edinson(R) September 09, 2021 9:06 AM [facility] 09-09-2021 Note HNO ID: [id number] Author: Hardeep Mcdermott APRN.RESERVOIR ENGINEERING MANAGER Service: ? Author Type: Nurse Practitioner Type: Progress Notes Filed: 09/09/2021 10:39 AM Note Text: This note was created using NoteWriter. Subjective Becky Jones is a 46 year [...] history is provided by the patient. No foreign languages professor was used. Pain (foot) Pain location: right [...] Date - AIDS (acquired immune deficiency syndrome) ([facility]) 03/18/2013 - Cholecystitis with cholelithiasis - Gallstones - GERD (gastroesophageal reflux disease) - HIV disease ([facility]) Around 2006 PAST SURGICAL HISTORY Procedure Laterality Date - EGD 07/21/2018 - LAPAROSCOPY SURG CHOLECYSTECTOMY 05/19/2015 - PAST SURGICAL HISTORY OF lesion removed from ear - PAST SURGICAL HISTORY OF bilateral carpal tunnel ALLERGIES Amoxicillin MEDICATIONS citalopram (CELEXA) 20 mg tablet Take by mouth once daily. atorvastatin (LIPITOR) 20 mg tablet levothyroxine (SYNTHROID) 25 mcg tablet Omeprazole 40 mg capsule vvkijjnfbqix-qpuyhcvhlu-tgqzbcnd abine-tenofovir (GENVOYA) [phone] mg per tablet Take 1 tablet by [...] Pupils are equ (more content not included)... [facility] 09-09-2021 Instructions Hardeep Mcdermott APRN.[facility] - 09/09/2021 10:19 AM EDT [facility].I[facility] The [...] when lying down. documented in this encounter [facility] 09-09-2021 History of Presen t illness Narrative Images from the original note were not included. This note was created using [employer]. Subjective Becky Jones is a 46 year [...] history is provided by the patient. No foreign languages professor was used. Pain (foot) Pain location: right [...] Diagnosis Date AIDS (acquired immune deficiency syndrome) ([facility]) 03/18/2013 Cholecystitis with cholelithiasis Gallstones GERD (gastroesophageal reflux disease) HIV disease ([facility]) Around 2006 PAST SURGICAL HISTORY Procedure Laterality Date EGD 07/21/2018 LAPAROSCOPY SURG CHOLECYSTECTOMY 05/19/2015 PAST SURGICAL HISTORY OF lesion removed from ear PAST SURGICAL HISTORY OF bilateral carpal tunnel ALLERGIES Amoxicillin MEDICATIONS citalopram (CELEXA) 20 mg tablet Take by mouth once daily. atorvastatin (LIPITOR) 20 mg tablet levothyroxine (SYNTHROID) 25 mcg tablet Omeprazole 40 mg capsule rkgntrnxrpuv-xglstnljum-hwdzzzxc abine-tenofovir (GENVOYA) [phone] mg per tablet Take 1 tablet by [...] TO PODIATRY if symptoms continue. Hardeep Mcdermott APRN.RESERVOIR ENGINEERING MANAGER documented in this encounter [facility] documented [facility] Diagnosis Sensorineural hearing loss, bilateral- Primary Tinnitus, bilateral Unspecified tinnitus [facility] Diagnosis Acute cough- Primary Globus sensation Gastrointestinal malfunction arising from mental factors documented in this encounter 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 Advance Directive(s) Reason for Referral Specialty Diagnoses / Procedures Referred By Michael brooks Referred To Contact Podiatry Diagnoses Foot pain, right Procedures CONSULT TO PODIATRY OFFICE/OUTPATIENT [facility] 60-74 MINUTES Hardeep Mcdermott APRN.RESERVOIR ENGINEERING MANAGER [address] [place] [address] Referral ID Status Reason Start Date Expiration Date Visits Requested Visits Authorized [id number] Authorized PCP Requested Referral 09/09/2021 09/09/2022 1 1 Specialty Diagnoses / Procedures Referred By Michael brooks Referred To Contact XR IMAGING Diagnoses Foot pain, right Procedures XR FOOT GENERAL 3V AP/LAT/OBL RIGHT RADEX FOOT COMPLETE MINIMUM 3 VIEWS Hardeep Mcdermott APRN.RESERVOIR ENGINEERING MANAGER [address] [place] [address] Xr Imaging Referral ID Status Reason Start Date Expiration Date V isits Requested Visits Authorized [id number] Closed Auto-Generate d Referral 09/09/2021 10/09/2022 1 1 Specialty Diagnoses / Procedures Referred By Contac t Referred To Contact Ching Newell APRN.RESERVOIR ENGINEERING MANAGER [address] [place] [address] Referral ID Status Reason Start Date Expiration Date Visits Re quested Visits Authorized [id number] Closed 1 1 Additional Source Comments (unrecognized sect ion and content) No Status Records FoundNo Status Records FoundNo Status Records Found INFORMATION SOURCE (unrecogn ized section and content) DATE CREATED AUTHOR AUTHOR'S ORGANIZ ATION 10/08/2019 [employer] DATE CREATED AUTHOR AUTHOR'S ORGANIZ ATION 07/06/2022 [facility] Source Comments (unrecognize d section and content) In the event this informatio n is protected by the Federal Confidentiality of Alcohol and Drug Abuse Patient Records regulations: The Federal rules restrict any use of the information to criminally investigate or prosecute any alcohol or drug abuse patient.[facility] the event this information is protected by the Federal Confidentiality of Alcohol and Drug Abuse Patient Records regulations: The Federal rules restrict any use of the information to criminally investigate or prosecute any alcohol or drug abuse patient.[facility] the event this information is protected by the Federal Confidentiality of Alcohol and Drug Abuse Patient Records regulations: The Federal rules restrict any use of the information to criminally investigate or prosecute any alcohol or drug abuse patient.[facility] the event this information is protected by the Federal Confidentiality of Alcohol and Drug Abuse Patient Records regulations: The Federal rules restrict any use of the information to criminally investigate or prosecute any alcohol or drug abuse patient.[facility] the event this information is protected by the Federal Confidentiality of Alcohol and Drug Abuse Patient Records regulations: The Federal rules restrict any use of the information to criminally investigate or prosecute any alcohol or drug abuse patient.[facility] Reason for Visit (unrecogniz ed section and content) Reason Comments Hearing Loss Ringing In Ear(s) Au Reason Comments Cough sob x 1 week Reason Comments Results Care Teams (unrecognized sec tion and content) Route Sales Person Relationship Specialty Start Date End Date Crystal Sterling, DO [address] [place] [address] PCP - General Family Practice 06/25/18 Route Sales Person Relationship Specialty Start Date End Date Clinic, [facility] [address] [place] [address] PCP - General 07/04/22 Route Sales Person Relationship Specialty Start Date End Date Clinic, [facility] [address] [facility] [place] [address] PCP - General 07/04/22 Route Sales Person Relationship Specialty Start Date End Date Clinic, [facility] [place] [address] PCP - General 07/04/22 FOR RECORDS PERTAINING [...] BE BASED ON THE PRIMARY CLINICAL RECORDS. [facility] Absolute [employer] [facility]. provides no warranty or guarantee of the accuracy or completeness of information in this document.
[2023-03-23 08:38] VITALS: BP 138/78; PULSE 97; RESP 16; TEMP 36.6; O2SAT 98; BMI 35.9
[2023-03-23] MEDS: Lactated Ringers 1,000 ML 15 ML IV (08:40)
--- NOTE | 2023-03-23 09:17 | HP.PCM_ITS ---
[facility] - General General Date of Service: 03/23/23 Chief Complaint: Screening colonoscopy HPI Narrative BECKY JONES, is a 47 M who presents for screening colonoscopy. He confirms his preappointment questionnaire that he has not experienced any change in his bowel habits-and particularly denies any notice of blood. Also also confirms a family history of colon cancer diagnosed in his uncle at the age of 56. Lastly he confirms that his prep was completed successfully and that her output is now clear/cloudy. [facility]LY [facility], [facility] Medical History (Updated 03/20/23 @ 09:16 by Jasmin Dominguez) Anxiety BiPAP (biphasic positive airway pressure) dependence Cubital tunnel syndrome on left Depression Difficulty swallowing Former smoker GERD (gastroesophageal reflux disease) High cholesterol History of echocardiogram History of stress test HIV (human immunodeficiency virus infection) Hx of blood diseases Hyperlipidemia Hypertension Hypothyroidism Left carpal tunnel syndrome Major depressive disorder, recurrent severe without psychotic features Restless legs Sleep apnea Thyroid disease Wears dentures Wears glasses Home Medications atorvastatin 10 mg tablet 20 mg PO QHS 08/11/22 [History Last Taken Unknown] cholecalciferol (vitamin D3) 25 mcg (1,000 unit) tablet 25 mcg PO DAILY 08/11/22 [History Last Taken Unknown] hydroxyzine HCl 25 mg tablet 25 mg PO BID 08/11/22 [History Last Taken Unknown] levothyroxine 25 mcg tablet 25 mcg PO DAILY 08/11/22 [History Last Taken Unknown] montelukast 10 mg tablet 10 mg PO DAILY PRN Allergy Symptoms 08/11/22 [History Last Taken Unknown] omeprazole 40 mg capsule,delayed release 40 mg PO DAILY 08/11/22 [History Last Taken Unknown] varenicline 0.5 mg (11)-1 mg (42) tablets in a dose pack See Rx Instructions PO PER PKG DIR 08/11/22 [History Last Taken Unknown] vilazodone 40 mg tablet 40 mg PO DAILY 08/11/22 [History Last Taken Unknown] bictegravir 50 mg-emtricitabine 200 mg-tenofovir alafenam 25 mg tablet (Biktarvy) 1 tab PO DAILY 08/18/22 [History Last Taken Unknown] naltrexone 50 mg tablet 25 mg PO Q24H 09/12/22 [History Last Taken Unknown] buspirone 10 mg tablet 15 mg PO BID 03/16/23 [History Last Taken Unknown] cariprazine 1.5 mg capsule (Vraylar) 1.5 mg PO DAILY 03/16/23 [History Last Taken Unknown] lisinopril 10 mg tablet 20 mg PO DAILY 03/16/23 [History Last Taken Unknown] Allergy/AdvReac Type Severity Reaction Status Date / Time amoxicillin Allergy Rash Verified 03/23/23 08:37 amoxicillin trihydrate Allergy Hives Verified 03/23/23 08:37 [From Augmentin] dicyclomine [From Bentyl] Allergy Rash Verified 03/23/23 08:37 potassium clavulanate Allergy Hives Verified 03/23/23 08:37 [From Augmentin] sertraline [From Zoloft] Allergy Rash Verified 03/23/23 08:37 venlafaxine Allergy Rash Verified 03/23/23 08:37 adhesive AdvReac Itching Verified 03/23/23 08:37 topiramate AdvReac Rash Verified 03/23/23 08:37 Family History Father Diabetes Hypertension Congestive heart failure (CHF) Myocardial infarction Mother Thyroid cancer Uncle Colon cancer Surgical History (Updated 03/20/23 @ 09:09 by Jasmin Dominguez) History of carpal tunnel release of both wrists History of cholecystectomy Social History Smoking Status: Former smoker alcohol intake: never Past Medical/Surgical History Planned Operation Planned Operative Procedure/s: COLONOSCOPY S.O.S: No Previous Hospitalizations/Surgeries HX Hospitalizations: No HX of Surgeries: DX WITH HIV AND HOSPITALIZED IN 2005 RIGHT CARPAL TUNNEL RELEASE Any Problems With Anesthesia: No You/Your Family Experience Fever (Hyperthermia) With Anes: No Cholinesterase deficiency: No Cardiovascular Hx Chest Pain within Last 2 months: No Hx of Irregular Heartbeat and/or Afib: No Hx Heart Attack: No Hx Congestive Heart Failure: No Hx Rheumatic Fever: No Hx Hypertension: Yes Hx Internal Defibrillator: No Hx Pacemaker: No Hx Cardiac Catheterization: No Hx Cardiac Surgery/Stents/Etc.: No Hx Stress Test: No Hx Pain in Legs when Walking/Leg Cramps: No Respiratory Chronic Cough: No HX of Shortness of Breath: No Hoarseness: No Hx Chronic Obstructive Pulmonary Disease (COPD): No Hx Asthma: No Hx Emphysema: No Hx Sleep Apnea: Yes CPAP: No BIPAP: Yes (NON COMPLIANT) Hx Respiratory Tract Infection/Cold (presently): No Result (for STOP score): Positive Hx Smoking: Yes (TRYING TO QUIT, ON WELBUTRIN, half a pack a day.) Smoking Status: Former smoker Gastrointestinal Hx Gastrointestinal Disorders: No Hx Gastrointestinal Bleed: No Hx Ulcer: No Hx Hiatal Hernia: No Difficulty Chewing/Swallowing: No Special diet followed at home: No Hx Unplanned Weight Loss of 20#: No HX Unplanned Weight Gain of 20#: No Neurological Hx Seizures: No HX Syncope/Blackout Spells/Unconsciousness: No Hx Transient Ischemic Attacks (TIA): No Hx Multiple Sclerosis: No Hx Parkinson's Disease: No Hx Head/Neck Injury: No Hx Headaches: No Hx Back Injury/Pain: Yes (OCCASIONAL LOW BACK PAIN) Recent Onset of Speech Difficulty: No Restless Legs: No Does patient have nerve stimulator: No Blood Disorder Hx Leukemia: No Bleeding Tendencies: No Hx Deep Vein Thrombosis: No Hx High Cholesterol: No Blood Transmitted Disease: Yes (HIV DX 2005) Hx Hepatitis: No Hx Cirrhosis: No Hx Anemia: No Hx Blood Disorders: Yes (hiv) Genitourinary Hx Renal Disease: No Hx Dialysis: No Musculoskeletal Hx Arthritis: Yes (back) Hx Rheumatoid Arthritis: No Hx Gout: No Recent Onset of an Orthopedic Problem: No Endocrine Hx Diabetes: No Thyroid Disease: No Hx Steroid Therapy: No Psycho/Social Hx Substance Use: No Hx Alcohol Use: No Hx Anxiety: No Hx Depression: No Mental Illness: No Hx Dementia: No Miscellaneous Hx Cancer: No Recent Exposure to Contagious Disease: No Hx of C-Diff: No Any Loose Teeth: No Allergies amoxicillin Allergy (Verified 03/23/23 08:37) Rash amoxicillin trihydrate [From Augmentin] Allergy (Verified 03/23/23 08:37) Hives dicyclomine [From Bentyl] Allergy (Verified 03/23/23 08:37) Rash potassium clavulanate [From Augmentin] Allergy (Verified 03/23/23 08:37) Hives sertraline [From Zoloft] Allergy (Verified 03/23/23 08:37) Rash venlafaxine Allergy (Verified 03/23/23 08:37) Rash adhesive Adverse Reaction (Verified 03/23/23 08:37) Itching topiramate Adverse Reaction (Verified 03/23/23 08:37) Rash Takes this anyway with Hydroxyzine d/t works for pt. Maternal: Family History Father Diabetes Hypertension Congestive heart failure (CHF) Myocardial infarction Mother Thyroid cancer Uncle Colon cancer Cancer (Mother w/ thyroid cancer.) Paternal: Family History Father Diabetes Hypertension Congestive heart failure (CHF) Myocardial infarction Mother Thyroid cancer Uncle Colon cancer Diabetes and Heart Disease (his father's brothers from heart attacks at the age<50.) Discharge Is Pt Admitted From a Alf, or a Long Term: No Who Could Help: UNSURE After D/C, Where Do you Plan to Go: Return Home Vital Signs Vital Signs Vital Signs: 03/23/23 08:38 03/23/23 08:38 Temperature 97.9 F Temperature Source Temporal Pulse Rate 97 Respiratory Rate 16 Respiratory Pattern Normal Blood Pressure 138/78 H Blood Pressure Mean 98 Blood Pressure Source Monitor Blood Pressure Position Semi-Fowlers Blood Pressure Location Right Arm Pulse Ox 98 Oxygen Delivery Method Room Air Weight Weight: 222 lb 10.67 oz Body Mass Index (BMI) 35.9 Physical Exam Const alert, oriented x3 and no apparent distress Resp normal respiratory effort GI GI Narrative: Nondistended, soft, nontender to palpation Assessment & Plan Assessment/Plan (1) Encounter for screening for malignant neoplasm of colon: PLAN: Patient is a 47-year-old male who arrives for screening colonoscopy with what appears to be perhaps a slightly greater than average risk of colon cancer due to family history of colon cancer in an uncle diagnosed in his 50s. Notably, patient denies any present issues with his own GI habits. He has completed a prep in anticipation of today's procedure and suggest that the output is now cloudy . Hopefully, this translates into an exam where we can see adequately, but will not know the side of our procedure. Thus, we will proceed as scheduled. Patient is aware of prior proceedings as he is related to a prior patient of mine. He denies any further questions. Surgery Risks - Colonoscopy Risks Include but are not Limited To: Risks include but are not limited to: Bleeding, perforation requiring further surgery, inability to complete colonoscopy requiring barium enema.
[2023-03-23 10:10] VITALS: BP 104/82; BP 138/78; PULSE 91; RESP 16; TEMP 36.3; O2SAT 94
--- NOTE | 2023-03-23 10:10 | OP.COLON_ITS ---
Patient Name: Kd Wells Procedure Date: 03/23/2023 9:09 AM Date of : 1975 Age: 47 Procedure: Colonoscopy Indications: Screening for colon cancer: Family history of colorectal cancer in distant relative(s) before age 60 Providers: Kleber Sutherland MD Medicines: See the Anesthesia note for documentation of the administered medications Patient Profile: Refer to note in patient chart for documentation of history and physical. Last Colonoscopy: none. The patient's first colonoscopy is today. Complications: No immediate complications. Estimated blood loss: Minimal. Procedure: Pre-Anesthesia Assessment: - The heart rate, respiratory rate, oxygen saturations, blood pressure, adequacy of pulmonary ventilation, and response to care were monitored throughout the procedure. After I obtained informed consent, the scope was passed under direct vision. Throughout the procedure, the patient's blood pressure, pulse, and oxygen saturations were monitored continuously. The Colonoscope was introduced through the anus and advanced to the cecum, identified by the appendiceal orifice, ileocecal valve and palpation. The colonoscopy was somewhat difficult due to significant looping. Successful completion of the procedure was aided by changing the patient to a supine position. The patient tolerated the procedure fairly well. The quality of the bowel preparation was adequate to identify polyps. Scope In: 9:26:12 AM Scope Withdrawal Time 0 hours 17 minutes 25 seconds Scope Out: 10:02:40 AM Total Procedure Duration Time 0 hours 36 minutes 28 seconds Findings: A 5 mm polyp was found in the proximal transverse colon. The polyp was semi-pedunculated. The polyp was removed with a hot snare. Resection and retrieval were complete. Estimated blood loss: none. A 3 mm polyp was found in the rectum. The polyp was semi-sessile. Biopsies were taken with a cold forceps for histology. Estimated blood loss was minimal. The exam was otherwise without abnormality on direct and retroflexion views. The perianal and digital rectal examinations were normal. Pertinent negatives include normal sphincter tone. Impression: - One 5 mm polyp in the proximal transverse colon, removed with a hot snare. Resected and retrieved. - One 3 mm polyp in the rectum. Biopsied. - The examination was otherwise normal on direct and retroflexion views. Recommendation: - Discharge patient to home (via wheelchair). - Resume previous diet today. - Continue present medications. - Await pathology results. - Repeat colonoscopy date to be determined after pending pathology results are reviewed for surveillance based on pathology results. - Telephone my office for pathology results in 1 week. Procedure Code(s): --- Professional --- 00325, Colonoscopy, flexible; with removal of tumor(s), polyp(s), or other lesion(s) by snare technique 65226, 59, Colonoscopy, flexible; with biopsy, single or multiple Diagnosis Code(s): --- Professional --- Z12.11, Encounter for screening for malignant neoplasm of colon Z80.0, Family history of malignant neoplasm of digestive organs D12.3, Benign neoplasm of transverse colon (hepatic flexure or splenic flexure) D12.8, Benign neoplasm of rectum CPT copyright 2021 [employer]. All rights reserved. The codes documented in this report are preliminary and upon bracelet and brooch maker review may be revised to meet current compliance requirements. Kleber Sutherland MD 03/23/2023 10:10:13 AM This report has been signed electronically. Number of Addenda: 0 Note Initiated On: 03/23/2023 9:09 AM
--- NOTE | 2023-03-23 10:11 | OP.CCLET_ITS ---
[facility] This procedure was performed on February. My impressions and recommendations are as follows: Impressions : - One 5 mm polyp in the proximal transverse colon, removed with a hot snare. Resected and retrieved. - One 3 mm polyp in the rectum. Biopsied. - The examination was otherwise normal on direct and retroflexion views. Recommendations : - Discharge patient to home (via wheelchair). - Resume previous diet today. - Continue present medications. - Await pathology results. - Repeat colonoscopy date to be determined after pending pathology results are reviewed for surveillance based on pathology results. - Telephone my office for pathology results in 1 week. My findings are described in the full procedure note, which is enclosed. If I can be of further assistance, please feel free to contact me at Doctor phone number(s): , Work: . Sincerely, Kleber Sutherland MD 03/23/2023 10:10:13 AM This report has been signed electronically.
[2023-03-23 10:15] VITALS: BP 115/79; BP 138/78; PULSE 87; RESP 18; O2SAT 94
[2023-03-23 10:20] VITALS: BP 115/78; BP 138/78; PULSE 87; RESP 16; O2SAT 95
[2023-03-23 10:27] VITALS: BP 114/77; BP 138/78; PULSE 87; RESP 16; TEMP 36.2; O2SAT 95
[2023-03-23 10:55] VITALS: BP 138/78
== END 2023-03-23 10:59 | disposition home or self-care (01) ==
LOC: EN 08:06 → AC 08:07
PROVIDERS: Visit Provider Surgery
PROC: 0DJD8ZZ Inspection of Lower Intestinal Tract, Via Natural or Artificial Opening Endoscopic (ICD-10-PCS; CPT 45378; principal; 2023-03-23 09:25)
DX: Z12.11 Encounter for screening for malignant neoplasm of colon (principal); Z21 Asymptomatic human immunodeficiency virus [HIV] infection status; K63.5 Polyp of colon; I10 Essential (primary) hypertension; K62.1 Rectal polyp; E78.00 Pure hypercholesterolemia, unspecified; F41.9 Anxiety disorder, unspecified; G47.30 Sleep apnea, unspecified; E03.9 Hypothyroidism, unspecified; K21.9 Gastro-esophageal reflux disease without esophagitis; F32.A Depression, unspecified; Z79.899 Other long term (current) drug therapy; Z80.0 Family history of malignant neoplasm of digestive organs; Z87.891 Personal history of nicotine dependence
CPT/HCPCS: 45385; 45380; 88305; J7120; J2405

== ENCOUNTER → 2023-06-01 | Outpatient (CLI) | payer MEDICAID, SELFPAY ==
[2023-06-01 15:32] LABS: Thyroid Stim Hormone (TSH) 2.37 uIU/mL (0.358-3.74)
== END | disposition home or self-care (01) ==
LOC: LAB 14:16
PROVIDERS: Referring Provider Nurse Practitioner Family; Visit Provider Nurse Practitioner Family
DX: E03.9 Hypothyroidism, unspecified (principal)
CPT/HCPCS: 36415; 84439; 84443

== ENCOUNTER → 2023-07-12 | Outpatient (CLI) | payer MEDICAID, SELFPAY ==
--- NOTE | 2023-07-12 14:15 | NEURO ---
NCS and/or EMG Patient Report Ordering Doctor: Edilson Copeland DATE OF SERVICE: 07/12/23 Kd presents with complaints of numbness in the right hand, primarily digits 4 and 5. He reports intermittent elbow pain. Electrodiagnostic findings: Right median motor nerve demonstrates prolonged distal latency with normal amplitude and borderline reduced conduction velocity. Ulnar motor nerve demonstrates normal distal latency and amplitude without significant drop in conduction across the elbow. Normal right median and ulnar F?wave. Prolonged right median sensory latency at the wrist. Normal ulnar and radial sensory responses. Needle EMG testing was performed in the right upper limb. All muscles tested showed no evidence of denervation with normal motor unit action potentials. Electrodiagnostic impression: This is an abnormal study of the right upper limb 1. Electrodiagnostic findings suggestive of right-sided median mononeuropathy. This consistent with a mild recurrent carpal tunnel syndrome. 2. There is no electrodiagnostic evidence for ulnar neuropathy, including cubital tunnel syndrome. No significant drop in conduction across the elbow and no denervation noted in ulnar innervated muscles. 3. There is no electrodiagnostic evidence for cervical radiculopathy. Multi Select Codes Neurology Neurology Interp Codes: 12551-81 Musc test done w/n test comp (interp) and 60854-90 Nrv cndj test 7-8 studies (interp)
== END | disposition home or self-care (01) ==
LOC: PSN 13:00
PROVIDERS: Referring Provider Orthopaedic Surgery Sports Medicine; Visit Provider Orthopaedic Surgery Sports Medicine
DX: R20.0 Anesthesia of skin (principal); R20.2 Paresthesia of skin
CPT/HCPCS: 95886; 95910

== ENCOUNTER 2023-07-29 05:19 | Inpatient (IN) | payer MEDICAID, SELFPAY ==
[2023-07-29] VITALS (40 sets, daily range): BP systolic 106–167; BP diastolic 69–104; PULSE 86–113; RESP 11–25; TEMP 36.4–37.4; O2SAT 94–100; BMI 37.7; BMI 37.8; BMI 37.9
--- NOTE | 2023-07-29 05:28 | EKG12_ITS ---
Test Reason : NEURO Blood Pressure : / mmHG Vent. Rate : 094 BPM Atrial Rate : 094 BPM P-R Int : 140 ms QRS Dur : 096 ms QT Int : 338 ms P-R-T Axes : -03 009 033 degrees QTc Int : 422 ms Normal sinus rhythm Normal ECG Confirmed by SHANTA BOX MD ([id number]), news video editor CODY LI ([id number]) on 07/31/2023 6:51:30 AM Referred By: Confirmed By:SHANTA BOX MD
--- NOTE | 2023-07-29 05:28 | CT_ITS ---
STUDY: CTA HEAD AND NECK WITH CONTRAST REASON FOR EXAM: Male, 48 years old patient with acute neurologic deficit. Acute stroke suspected. RADIATION DOSAGE (If Supplied By Facility): CTDIvol = ( 39.8 ) mGy, DLP = ( 690.56 ) mGycm TECHNIQUE: CT angiography was performed with a multi-detector CT scanner. Data acquisition was obtained from the skull base through the vertex following intravenous administration of 100 mL of IV Isovue-370. MIP images were reconstructed from the axial data set. Post-processing of the angiographic images was performed, with multiplanar reformation and 3D reconstruction. Individualized dose optimization techniques were used for this CT. COMPARISON: No relevant priors. FINDINGS: Normal bilateral petrous carotid arteries. Normal right cavernous carotid artery with a normal supraclinoid bifurcation. Normal left cavernous carotid artery with a normal supraclinoid bifurcation. Normal right A1 segments of the anterior cerebral artery. Normal left A1 segments of the anterior cerebral artery. Normal intact anterior communicating artery (ACOM). Normal bilateral A2 segments of the anterior cerebral arteries. Normal right M1 and M2 segments of the middle cerebral arteries, with a normal M1 bifurcation. Normal left M1 and M2 segments of the middle cerebral arteries, with a normal M1 bifurcation. Normal right posterior communicating artery (PCOM). Normal left posterior communicating artery (PCOM). Normal bilateral vertebral arteries. Normal basilar artery with a normal basilar bifurcation. The visualized bilateral superior cerebellar (SCA) arteries are normal. Normal bilateral P1, P2 and visualized P3 segments of the posterior cerebral arteries. There is no demonstrated aneurysm of the havas[place] of [place]. There is no demonstrated abnormality of the visualized brain. AORTIC ARCH: Normal visualized aortic arch. Normal origins of the brachiocephalic, left common carotid, and left subclavian arteries. RIGHT CAROTID ARTERIES: Normal right common carotid artery (CCA). Normal right common carotid bulb. Normal origin of the right internal carotid (ICA) artery without a hemodynamically significant stenosis. Normal visualized cervical portion of the right internal carotid artery. Normal origin of the right external carotid artery (ECA). LEFT CAROTID ARTERIES: Normal left common carotid artery (CCA). Normal left common carotid bulb. Normal origin of the left internal carotid (ICA) artery without a hemodynamically significant stenosis. Normal visualized cervical portion of the left internal carotid artery. Normal origin of the left external carotid artery (ECA). VERTEBRAL ARTERIES: Normal bilateral vertebral arteries. NECK ANATOMY: The lung apices appear to be clear. The thyroid has a grossly normal appearance. Visualized parotid and submandibular glands have a grossly normal appearance. Nasopharynx, oropharynx, hypopharynx and larynx are grossly normal appearance. There is multilevel spondylosis C5-6 and C6-7. Cervical and thoracic vertebral bodies have normal height and alignment. Patient is missing most of his teeth. CT/STROKE CTA Head AND Neck W/Con IMPRESSION: No CTA evidence for hemodynamically significant stenosis, thrombosis, dissection or aneurysm. N.B. : The above Results were Read Back by Renae Keenan MD to Pascual Basurto DO, and understanding confirmed on 07/29/2023 06:06:34 (ET). Electronically Signed: Renae Keenan MD at 6:08 EDT ,
--- NOTE | 2023-07-29 05:28 | RAD_ITS ---
STUDY: X-RAY CHEST REASON FOR EXAM: Male, 48 years old patient with acute neurologic deficit. Acute stroke suspected. TECHNIQUE: Single AP portable view of the chest. COMPARISON: July 19, 2022. FINDINGS: Cardiac monitoring leads are present. Lungs are hyperexpanded. There are prominent bronchovascular markings in both lungs. There is no demonstrated pleural abnormality. Normal size heart. Normal mediastinum and robert. Normal visualized pulmonary arteries. Normal visualized aortic arch and descending thoracic aorta. Normal visualized thoracic spine. Normal visualized ribs, clavicles, and shoulders. There is no demonstrated abnormality of the visualized soft tissue structures of the upper abdomen. RAD/Chest 1 View IMPRESSION: No radiographic evidence of acute cardiopulmonary disease. Electronically Signed: Renae Keenan MD at 6:43 EDT ,
--- NOTE | 2023-07-29 05:28 | CT_ITS ---
INDICATION: Acute neurologic deficit and acute stroke suspected. EXAMINATION: CT BRAIN - CT Head Stroke Protocol W/O Contrast Injection TECHNIQUE: Multiple axial images were obtained of the head without intravenous contrast. The protocol utilizes one or more of the following dose reduction techniques: automated exposure control, adjustment of mA and/or kV according to patient size,and/or use of iterative reconstruction technique. IV Contrast dosage and agent: None. RADIATION DOSAGE (If Supplied By Facility): CTDIvol = ( 45 ) mGy, DLP = ( 1113 ) mGycm COMPARISON: No relevant prior comparison study available FINDINGS: BRAIN PARENCHYMA: No intra- or extra-axial hemorrhage. No evidence of acute infarct. No intracranial mass or mass effect. There is preservation of the ayon/white matter interface. Posterior fossa structures are unremarkable. CSF SPACES: Appropriate for age. No hydrocephalus. Basal cisterns are patent. CALVARIUM, SKULL BASE, PARANASAL SINUSES AND MASTOID AIR CELLS: Clear. No discrete lytic or blastic abnormalities. ORBITS: Both globes, extraocular muscles, optic nerves and retrobulbar fat appear unremarkable. ASPECTS Score for Acute Strokes: 10 CT/STROKE Brain/Head without Cont IMPRESSION: Negative Brain CT without contrast. N.B. : The above Results were Read Back by Renae Keenan MD to Pascual Basurto MD, and understanding confirmed on 07/29/2023 05:43:49 (ET). Electronically Signed: Renae Keenan MD at 5:43 EDT ,
--- NOTE | 2023-07-29 05:31 | ED.VIS.STROK ---
HPI History of Present Illness Chief Complaint: Stroke Alert Informant: patient Narrative Narrative: 48-year-old male history of HIV, hypertension, tobacco use, hypercholesterolemia presenting to the emergency room with left-sided weakness/numbness. Patient states that about 1 hour prior to examination he was on his way driving to work. He states that he began to have numbness of the left arm and leg. He states he was hitting his left arm try to see if he could wake it up. He did not notice weakness initially. Patient states that he was able to ambulate in the department but noticed that the left leg seemed different. He denies any headache. He is HIV positive with a CD4 count greater than 300. He follows with Dr. Forte for infectious disease. No recent medications. No prior stroke or malignancy that is known. [facility] Medical History Cubital tunnel syndrome on right Right carpal tunnel syndrome Hx of blood diseases Restless legs Difficulty swallowing Former smoker History of echocardiogram Wears glasses Wears dentures Depression Anxiety Thyroid disease High cholesterol GERD (gastroesophageal reflux disease) BiPAP (biphasic positive airway pressure) dependence Sleep apnea History of stress test Major depressive disorder, recurrent severe without psychotic features Hyperlipidemia Left carpal tunnel syndrome Cubital tunnel syndrome on left Hypothyroidism Hypertension HIV (human immunodeficiency virus infection) Home Medications ?Medication ?Instructions ?Recorded ?Last Taken ?Type atorvastatin 10 mg tablet 20 mg PO QHS 08/11/22 Unknown History cholecalciferol (vitamin D3) 25 25 mcg PO DAILY 08/11/22 Unknown History mcg (1,000 unit) tablet hydroxyzine HCl 25 mg tablet 25 mg PO BID 08/11/22 Unknown History levothyroxine 25 mcg tablet 25 mcg PO DAILY 08/11/22 Unknown History montelukast 10 mg tablet 10 mg PO DAILY PRN Allergy Symptoms 08/11/22 Unknown History omeprazole 40 mg capsule,delayed 40 mg PO DAILY 08/11/22 Unknown History release varenicline 0.5 mg (11)-1 mg (42) See Rx Instructions PO PER PKG DIR 08/11/22 Unknown History tablets in a dose pack vilazodone 40 mg tablet 40 mg PO DAILY 08/11/22 Unknown History bictegravir 50 mg-emtricitabine 1 tab PO DAILY 08/18/22 Unknown History 200 mg-tenofovir alafenam 25 mg tablet (Biktarvy) naltrexone 50 mg tablet 25 mg PO Q24H 09/12/22 Unknown History lisinopril 10 mg tablet 20 mg PO DAILY 03/16/23 Unknown History cariprazine 1.5 mg capsule 3 mg PO DAILY 07/20/23 Unknown History (Iker) buspirone 15 mg tablet 30 mg PO BID 07/29/23 Unknown History Allergy/AdvReac Type Severity Reaction Status Date / Time amoxicillin Allergy Rash Verified 07/20/23 10:19 amoxicillin trihydrate (From Allergy Hives Verified 07/20/23 10:19 Augmentin) dicyclomine (From Bentyl) Allergy Rash Verified 07/20/23 10:19 potassium clavulanate (From Allergy Hives Verified 07/20/23 10:19 Augmentin) sertraline (From Zoloft) Allergy Rash Verified 07/20/23 10:19 venlafaxine Allergy Rash Verified 07/20/23 10:19 adhesive AdvReac Itching Verified 07/20/23 10:19 topiramate AdvReac Rash Verified 07/20/23 10:19 Family History Father Diabetes Hypertension Congestive heart failure (CHF) Myocardial infarction Mother Thyroid cancer Uncle Colon cancer Surgical History History of carpal tunnel release of both wrists History of cholecystectomy Social History (Updated 07/29/23 @ 06:[address] Marylou Frazier MD) household members: none Smoking Status: Current some day smoker tobacco type: cigarettes alcohol intake: never substance use type: does not use ROS ROS ED Constitutional Constitutional ED: Denies chills, fever(s) or weight loss Eyes Eyes: Denies blurry vision, change in vision or diplopia ENT ENT ED: Denies ear pain, rhinorrhea or sore throat Cardiovascular Cardiovascular: Denies chest pain, orthopnea, palpitations or racing heartbeat Respiratory/Chest Respiratory/Chest: Denies cough, dyspnea or orthopnea Gastrointestinal Gastrointestinal: Denies abdominal pain, diarrhea, nausea or vomiting Genitourinary Genitourinary ED: Denies dysuria, hematuria or urinary frequency Musculoskeletal Musculoskeletal: Denies arthralgias, back pain, myalgias or neck pain Integumentary Denies abscess or rash Neurologic Neurologic: Reports paresthesias and weakness; Denies headache(s) Psychiatric Psychiatric: Denies anxiety, depression, suicidal ideation or suicidal thoughts Endocrine Endocrinology: Denies polydipsia, polyphagia or polyuria Allergic/Immunologic Allergic/Immunologic ED: Denies mouth swelling, tongue swelling or urticaria EXAM Physical Exam Const Vital Signs: 07/29/23 05:21 07/29/23 05:23 07/29/23 05:30 Temperature 98.1 F 98.1 F Temperature Source Oral Oral Pulse Rate 96 96 96 Respiratory Rate 12 15 12 Blood Pressure 116/69 116/69 116/69 Blood Pressure Mean 84 84 84 Pulse Ox 99 100 100 Oxygen Delivery Method Room Air Room Air Room Air 07/29/23 05:35 07/29/23 05:36 07/29/23 06:04 Temperature 98.1 F Temperature Source Oral Pulse Rate 96 95 Respiratory Rate 12 14 Blood Pressure 116/69 130/87 H Blood Pressure Mean 84 101 Pulse Ox 100 97 Oxygen Delivery Method Room Air Room Air Room Air Positive well nourished, well developed and obese General Appearance ED: well developed Nutritional Appearance: obese HEENT Reports normocephalic, head/scalp atraumatic and moist mucous membranes Eyes PERRL and EOMs intact bilaterally Neck no lymphadenopathy, supple and no JVD Resp normal respiratory effort and clear to auscultation bilaterally Cardio regular rate, regular rhythm and no murmurs GI normal to inspection, nondistended, normoactive bowel sounds and non-tender Palpation: soft Back/Spine no CVA tenderness and normal ROM Extremity normal to inspection General Extremety ED: Negative for edema General Extremity: Negative for edema Neuro oriented x3 and CN's II-XII intact bilaterally Sensorium / Orientation: alert Psych mental status grossly normal Mood & Affect: Negative for depressed or tearful Skin no rashes or lesions noted and no wounds NIHSS NIHSS Initial: 1a Level of Consciousness: 0 1b LOC Questions (Score 2 if aphasic/stupor): 0 1c LOC Commands (Only score 1st attempt): 0 2 Best Gaze (If aphasic, use reflexive mvmts.): 0 3 Visual: 0 4 Facial Palsy: 0 5 Motor Arm Right (UN = amputation/fusion): 0 5 Motor Arm Left: 1 6 Motor Leg Right: 0 6 Motor Leg Left: 1 7 Limb ataxia (Only + if out of proportion): 0 8 Sensory (Aphasia/stupor=0 or 1, coma=2): 2 9 Best Language: 0 10 Dysarthria (mute, coma=2, intubated=UN): 0 11 Extinction and Inattention (only scored if +): 0 Total Score: 4 MDM MDM MDM Narrative Medical decision making narrative: Differential diagnosis includes but not limited to acute hemorrhagic and embolic stroke, intracranial mass such as tumor or infection, electrolyte abnormality, hypertensive urgency/emergency, atrial fibrillation, medication reaction, spinal cord disease. Based upon the patient's symptoms a stroke team was initiated during my initial evaluation. Patient was taken to CT scanner where a noncontrasted head CT showed no obvious intracranial hemorrhage. CTA does not show large vessel occlusion or dissection. Magnapen interpretation of the chest x-ray is no acute process normal mediastinal silhouette. Patient was evaluated by Dr. Lowery from [facility] neurology. Recommendations for TNK were given and discussed with patient who gives consent. I believe the patient understands the risk benefits. Basic blood work was obtained essentially negative. Blood glucose noted to be 203. Patient's blood pressure is within standard for administration. Plan is admission into hospital. History & Record Review Discussion w/independent historian: Patient Additional record(s) reviewed:: Prior outpatient record and Prior labs Lab Data Attestation: I reviewed the patient's lab results. Labs: Laboratory Results - last 24 hr 07/29/23 07/29/23 05:24 05:29 WBC 6.2 RBC 4.68 Hgb 13.8 Hct 40.9 MCV 87.4 MCH 29.5 MCHC 33.7 RDW Std Deviation 40.3 RDW Coeff of Libby 12.7 Plt Count 294 MPV 9.1 Immature Gran % (Auto) 0.800 Neut % (Auto) 47.6 Lymph % (Auto) 37.2 [place] % (Auto) 11.2 H Eos % (Auto) 1.9 Baso % (Auto) 1.3 H Absolute Neuts (auto) 2.9 Absolute Lymphs (auto) 2.29 Nucleated RBC % 0 PT 12.7 INR 1.0 APTT 24.8 Sodium 138 Potassium 4.2 Chloride 109 H Carbon Dioxide 23.0 Anion Gap 6 BUN 14 Creatinine 0.98 Estim Creat Clear Calc 104.10 Est GFR (MDRD) Af Amer 105 Est GFR (MDRD) Non-Af 87 BUN/Creatinine Ratio 14.4 Glucose 203 H Calcium 8.9 Troponin I High Sens 3 POC Glucose 202 H Radiography Diagnostic Testing: Clinical Impression(s) from Imaging Studies Head/Neck CTA 07/29/23 05:28 IMPRESSION: No CTA evidence for hemodynamically significant stenosis, thrombosis, dissection or aneurysm. N.B. : The above Results were Read Back by Renae Keenan MD to Pascual Basurto DO, and understanding confirmed on 07/29/2023 06:06:34 (ET). Electronically Signed: Renae Keenan MD at 6:08 EDT , ADDENDUM: 07/29/23 0615 IMPRESSION: No CTA evidence for hemodynamically significant stenosis, thrombosis, dissection or aneurysm. N.B. : The above Results were Read Back by Renae Keenan MD to Pascual Basurto DO, and understanding confirmed on 07/29/2023 06:06:34 (ET). Electronically Signed: Renae Keenan MD at 6:08 EDT , EKG Initial EKG: Attestation: I personally reviewed and interpreted this EKG as follows: Comments: Normal sinus rhythm ventricular rate [address] segments Management Discussion w/another healthcare provider: Hospitalist (Dr. Frazier (Internal Medicine)), [place] (Dr. Lowery ([facility] Stroke Neurology)) and Radiologist (Dr. 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
[2023-07-29 05:35] LABS: Absolute Lymphocyte Count 2.29 X10^3/uL (0.83-4.51); Absolute Neutrophil Count 2.9 X10^3/uL (2.0-7.7); Basophil# 0.08 X10^3/uL; Basophil% 1.3 % (0-1); Eosinophil# 0.12 X10^3/uL; Eosinophils% 1.9 % (0-5); Hematocrit 40.9 % (40-54); Hemoglobin 13.8 g/dL (13.0-16.5); Lymphocyte # 2.29 X10^3/ul (0.83-4.51); Lymphocyte % 37.2 % (19-41); Mean Corp Hgb Conc 33.7 g/dL (32-36); Mean Corpuscular Hgb 29.5 pg (27.0-32.0); Mean Corpuscular Volume 87.4 fL (80-94); Mean Platelet Vol. 9.1 fl (6.2-12.0); Monocyte# 0.69 X10^3/uL; Monocyte% 11.2 % (0-10); NRBC Flagged by Analyzer 0 % (0-5); Neutrophil # 2.93 X10^3/uL (2.7-7.7); Neutrophil % 47.6 % (47-70); Platelet Count 294 K/mm3 (150-450); RBC Distribution Width CV 12.7 % (11.6-14.6); RBC Distribution Width SD 40.3 fl (35.1-43.9); Red Blood Count 4.68 M/mm3 (4.6-6.2); White Blood Count 6.2 K/mm3 (4.4-11.0)
[2023-07-29 05:42] LABS: Bedside Glucose 202 mg/dL (74-106)
[2023-07-29 05:43] LABS: Prothrombin Time (Protime)PT. 12.7 SECONDS (11.7-14.9)
[2023-07-29 05:44] LABS: Partial Thromboplast Time 24.8 Seconds (24.1-36.2)
[2023-07-29 05:53] LABS: Anion Gap 6 (5-15); BUN 14 mg/dL (7-18); BUN/Creat Ratio 14.4 RATIO (10-20); Calcium,Total 8.9 mg/dL (8.5-10.1); Chloride 109 mmol/L (98-107); Creatinine, Serum 0.98 mg/dL (0.70-1.30); EST Glomerular Filtration Rate 87 mL/min (>60); Est Glom Filt Rate - Afr Amer 105 mL/min (>60); Glucose 203 mg/dL (74-106); Potassium 4.2 mmol/L (3.5-5.1); Sodium Level 138 mmol/L (136-145); Troponin-I HS 3 pg/mL (3.0-78.0)
--- NOTE | 2023-07-29 06:20 | HP.PCM.HOS_ITS ---
HPI - General General Date of Admission: 07/29/23 Date of Service: 07/29/23 Chief Complaint: L sided weakness, numbness. HPI Narrative The patient is a 48 y/o M w/ PMHx: Obesity, BHASKAR on BIPAP, HTN, HLD, RLS, Anxiety and Depression, Hypothyroidism, GERD, Former tobacco use, HIV who presents to the [facility] ED on for 07/29/23 with history of onset left-sided paresthesias with numbness primarily as well as weakness starting approximately 1 hour prior to ED evaluation with onset while he was driving to work with initially numbness to the left upper extremity and lower extremity and eventually noted also weakness when he was attempting to ambulate. In the ED NIH stroke scale 3 for left motor upper and lower extremity as well as sensory alteration. Given these findings and presentation stroke alert was initiated. Workup in the ED included T98.1, heart rate 96, BP 160/69, respiratory rate 12, 100% on room air, CBC with WBC 6.2, human 13.8, platelets 294 without marked shift, unremarkable coags, BMP with chloride 109, glucose 203 otherwise not marked appearing, troponin 3, CT brain without acute evidence of ischemia but final read pending upon requested evaluation, CTA head and neck with no hemodynamically significant stenosis, thrombus, dissection or aneurysm, EKG with SR without acute evidence of ischemia. Teleneurology consulted per stroke protocol and patient was felt TNK appropriate which was initiated. [facility] Medical History Cubital tunnel syndrome on right Right carpal tunnel syndrome Hx of blood diseases Restless legs Difficulty swallowing Former smoker History of echocardiogram Wears glasses Wears dentures Depression Anxiety Thyroid disease High cholesterol GERD (gastroesophageal reflux disease) BiPAP (biphasic positive airway pressure) dependence Sleep apnea History of stress test Major depressive disorder, recurrent severe without psychotic features Hyperlipidemia Left carpal tunnel syndrome Cubital tunnel syndrome on left Hypothyroidism Hypertension HIV (human immunodeficiency virus infection) Home Medications ?Medication ?Instructions ?Recorded ?Last Taken ?Type atorvastatin 10 mg tablet 20 mg PO QHS 08/11/22 Unknown History cholecalciferol (vitamin D3) 25 25 mcg PO DAILY 08/11/22 Unknown History mcg (1,000 unit) tablet levothyroxine 25 mcg tablet 25 mcg PO DAILY 08/11/22 Unknown History montelukast 10 mg tablet 10 mg PO DAILY PRN Allergy Symptoms 08/11/22 Unknown History omeprazole 40 mg capsule,delayed 40 mg PO DAILY 08/11/22 Unknown History release varenicline 0.5 mg (11)-1 mg (42) See Rx Instructions PO PER PKG DIR 08/11/22 Unknown History tablets in a dose pack vilazodone 40 mg tablet 40 mg PO DAILY 08/11/22 Unknown History bictegravir 50 mg-emtricitabine 1 tab PO DAILY 08/18/22 Unknown History 200 mg-tenofovir alafenam 25 mg tablet (Biktarvy) lisinopril 10 mg tablet 20 mg PO DAILY 03/16/23 Unknown History cariprazine 1.5 mg capsule 3 mg PO DAILY 07/20/23 Unknown History (Iker) buspirone 15 mg tablet 30 mg PO BID 07/29/23 Unknown History Allergy/AdvReac Type Severity Reaction Status Date / Time amoxicillin Allergy Rash Verified 07/20/23 10:19 amoxicillin trihydrate (From Allergy Hives Verified 07/20/23 10:19 Augmentin) dicyclomine (From Bentyl) Allergy Rash Verified 07/20/23 10:19 potassium clavulanate (From Allergy Hives Verified 07/20/23 10:19 Augmentin) sertraline (From Zoloft) Allergy Rash Verified 07/20/23 10:19 venlafaxine Allergy Rash Verified 07/20/23 10:19 adhesive AdvReac Itching Verified 07/20/23 10:19 topiramate AdvReac Rash Verified 07/20/23 10:19 Family History Father Diabetes Hypertension Congestive heart failure (CHF) Myocardial infarction Mother Thyroid cancer Uncle Colon cancer Surgical History History of carpal tunnel release of both wrists History of cholecystectomy Social History (Updated 07/29/23 @ 06:[address] Marylou Frazier MD) household members: significant other Smoking Status: Current some day smoker tobacco type: cigarettes alcohol intake: never substance use type: does not use ROS ROS Narrative Admission Review of Systems: CONSTITUTIONAL: No weight loss, fever, chills, + weakness or fatigue. HEENT: Eyes: No visual loss, blurred vision, double vision or yellow sclerae. Ears, Nose, Throat: No hearing loss, sneezing, congestion, runny nose or sore throat. SKIN: No rash or itching, lesions, wounds. CARDIOVASCULAR: No chest pain, chest pressure or chest discomfort, palpitations, edema, orthopnea, syncopal events. RESPIRATORY: No shortness of breath, cough or sputum, wheezing, hemoptysis. GASTROINTESTINAL: No anorexia, nausea, vomiting or diarrhea, abdominal pain, melena, BRBPR. GENITOURINARY: No dysuria, frequency, urgency or retention. NEUROLOGICAL: + Left-sided weakness, numbness. No headache, dizziness, syncope, paralysis, ataxia, change in bowel or bladder control, seizure. MUSCULOSKELETAL: No muscle, back pain, joint pain or stiffness. HEMATOLOGIC: No anemia, bleeding or bruising. LYMPHATICS: No enlarged nodes. No history of splenectomy. PSYCHIATRIC: + History of anxiety and depression. ENDOCRINOLOGIC: No reports of sweating, cold or heat intolerance. No polyuria or polydipsia. ALLERGIES: + History of allergic rhinitis. Vital Signs Vital Signs Vital Signs: 07/29/23 05:21 07/29/23 05:23 07/29/23 05:30 Temperature 98.1 F 98.1 F Temperature Source Oral Oral Pulse Rate 96 96 96 Respiratory Rate 12 15 12 Blood Pressure 116/69 116/69 116/69 Blood Pressure Mean 84 84 84 Pulse Ox 99 100 100 Oxygen Delivery Method Room Air Room Air Room Air 07/29/23 05:35 07/29/23 05:36 07/29/23 06:04 Temperature 98.1 F Temperature Source Oral Pulse Rate 96 95 Respiratory Rate 12 14 Blood Pressure 116/69 130/87 H Blood Pressure Mean 84 101 Pulse Ox 100 97 Oxygen Delivery Method Room Air Room Air Room Air Weight Weight: 233 lb 14.567 oz Body Mass Index (BMI) 37.7 Physical Exam Narrative Physical Examination: General: Awake, alert, oriented x 3 and cooperative, seated upright in the ED bed in no apparent distress. Skin: Normal color, normal turgor, no icterus, no cyanosis. HEENT: AT/NC, EOMI, PERRLA, MMM, no carotid bruits or JVD noted. Lungs: CTA bilaterally, moderate effort, mild decrease BL bases, no rales, ronchi or wheezing. Heart: Regular rate and rhythm; no gallop, rub audible. Abdomen: Soft, obese, NTTP, ND, normal BS, no appreciated HSM. Extremities: No cyanosis, clubbing, or edema. 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 Psychiatric: Affect appears normal, no acute evidence of depressive or anxiety feelings but does have underlying history. Results Lab / Micro Data 07/29/23 05:29 07/29/23 05:29 Labs: Laboratory Results - last 24 hr 07/29/23 05:24: POC Glucose 202 H 07/29/23 05:29: WBC 6.2, RBC 4.68, Hgb 13.8, Hct 40.9, MCV 87.4, MCH 29.5, MCHC 33.7, RDW Std Deviation 40.3, RDW Coeff of Libby 12.7, Plt Count 294, MPV 9.1, Immature Gran % (Auto) 0.800, Neut % (Auto) 47.6, Lymph % (Auto) 37.2, [place] % (Auto) 11.2 H, Eos % (Auto) 1.9, Baso % (Auto) 1.3 H, Absolute Neuts (auto) 2.9, Absolute Lymphs (auto) 2.29, Nucleated RBC % 0, PT 12.7, INR 1.0, APTT 24.8, Sodium 138, Potassium 4.2, Chloride 109 H, Carbon Dioxide 23.0, Anion Gap 6, BUN 14, Creatinine 0.98, Estim Creat Clear Calc 104.10, Est GFR (MDRD) Af Amer 105, Est GFR (MDRD) Non-Af 87, BUN/Creatinine Ratio 14.4, Glucose 203 H, Calcium 8.9, Troponin I High Sens 3 Imaging Radiology Impression Head/Neck CTA 07/29/23 05:28 IMPRESSION: No CTA evidence for hemodynamically significant stenosis, thrombosis, dissection or aneurysm. N.B. : The above Results were Read Back by Renae Keenan MD to Pascual Basurto DO, and understanding confirmed on 07/29/2023 06:06:34 (ET). Electronically Signed: Renae Keenan MD at 6:08 EDT , ADDENDUM: 07/29/23 0615 IMPRESSION: No CTA evidence for hemodynamically significant stenosis, thrombosis, dissection or aneurysm. N.B. : The above Results were Read Back by Renae Keenan MD to Pascual Basurto DO, and understanding confirmed on 07/29/2023 06:06:34 (ET). Electronically Signed: Renae Keenan MD at 6:08 EDT , Assessment & Plan Assessment/Plan (1) CVA (cerebral vascular accident): PLAN: Plan The patient is a 48 y/o M w/ PMHx: Obesity, BHASKAR on BIPAP, HTN, HLD, RLS, Anxiety and Depression, Hypothyroidism, GERD, Former tobacco use, HIV who presents to the [facility] ED on for 07/29/23 with history of onset left-sided paresthesias with numbness primarily as well as weakness starting approximately 1 hour prior to ED evaluation with onset while he was driving to work with initially numbness to the left upper extremity and lower extremity and eventually noted also weakness when he was attempting to ambulate. #1. Left-sided weakness, numbness concerning for CVA/TIA s/p TNK administration: Will admit to ICU, will consult hr director per protocol, will obtain repeat CT head in 24 hours versus MRI Brain at that time, ECHO, PT/OT/Speech/Nutrition evaluation per protocol. Will allow permissive HTN, maintain on statin w/ AM FLP, fall precautions. If repeat imaging at 24 hours without evidence of any bleeding will initiate aspirin therapy immediately at that time. Mag, TSH, FLP, HgbA1c requested. Maintain on fall and aspiration precautions. Will continue neurology consultation per protocol. #2. Hyperglycemia with no diabetic history: Admission glucose 203, possibly stress response but concern for underlying diabetes especially given #1, human A1c requested and if consistent we will initiate an ADA diet with Accu-Cheks with insulin sliding scale. Nutrition consulted per stroke protocol. #3. HIV: We will continue patient home biktarvy antiviral regimen, encourage continued outpatient follow-up with infectious disease Dr. Presley as previously arranged, reports that his CD4 count is greater than 300. #4. Hypertension: Given presentation we will maintain permissive hypertension per stroke protocol, with as needed agents per stroke order set. #5. Hyperlipidemia: Continue home statin regimen. AM FLP. #6. Anxiety and depression: We will continue patient home cariprazine, BuSpar, vilazodone, hydroxyzine home regimen. #7. Hypothyroidism: We will continue patient on levothyroxine regimen, TSH pending. #8. Allergic rhinitis: We will continue patient home montelukast regimen. #9. Former tobacco use: Encourage continued tobacco cessation. #10. Restless leg syndrome: Per current list not on chronic regimen, if necessary add requip. #11. BHASKAR: BiPAP nightly. #12. GERD: We will continue patient on PPI. #13. DVT prophylaxis: SCDs given TNK administration as noted. #14. CODE status: Full Code. Charges/Coding Visit Charges Inpatient E&M: 59042 Init Hosp L3
[2023-07-29] MEDS: Tenecteplase 25 MG in Syringe 1 EACH 3600 MG IV (06:28)
[2023-07-29 06:55] LABS: Thyroid Stim Hormone (TSH) 3.51 uIU/mL (0.358-3.74)
[2023-07-29] MEDS: 0.9% Normal Saline (1000mL) 1,000 ML 100 ML IV ×2 (07:00→09:23)
--- NOTE | 2023-07-29 07:16 | ECHOD_ITS ---
Reason For Study: TIA/CVA Procedure This was a 2D Doppler, Color Flow transthoracic echocardiogram. Exam performed portable in ICU/CCU. Left Ventricle Normal left ventricle. The estimated ejection fraction is 55-60 %. Right Ventricle Normal right ventricle. Normal systolic function. Atria Normal left atrium. Mitral Valve The mitral valve is structurally normal. No prolapse or stenosis seen. Tricuspid Valve Normal tricuspid valve. Aortic Valve Trisinus/trileaflet aortic valve. Pulmonic Valve The pulmonic valve is not well visualized. Great Vessels Normal aortic root. Pericardium/Pleural Trivial pericardial effusion. Medication Performed a rapid injection of agitated mix of 9 cc saline and 1cc air to assess for atrial septal defect. MMode/2D Measurements & Calculations LVIDd: 5.3 cm IVSd: 1.1 cm Ao root diam: 3.3 cm LVIDs: 3.9 cm LVPWd: 1.1 cm RVDd: 2.9 cm FS: 26.5 % LAV(MOD-bp): 59.1 ml LVAd ap4: 28.6 cm2 LVAd ap2: 24.1 cm2 LAV(MOD-bp) Indexed: 27.6 ml/m2 LVLd ap4: 7.9 cm LVLd ap2: 8.2 cm LAV(MOD-sp2): 56.3 ml EDV(MOD-sp4): 85.1 ml EDV(MOD-sp2): 58.2 ml LAV(MOD-sp4): 56.0 ml EDV(sp4-el): 88.3 ml EDV(sp2-el): 60.4 ml LVAs ap4: 16.0 cm2 LVAs ap2: 13.1 cm2 LVLs ap4: 6.4 cm LVLs ap2: 6.2 cm ESV(MOD-sp4): 33.5 ml ESV(MOD-sp2): 22.6 ml ESV(sp4-el): 33.7 ml ESV(sp2-el): 23.6 ml EF(MOD-sp4): 60.6 % EF(MOD-sp2): 61.2 % EF(sp4-el): 61.9 % SV(MOD-sp4): 51.5 ml SV(MOD-sp2): 35.6 ml SV(sp4-el): 54.6 ml LA A4 area: 18.7 cm2 LA dimension(2D): 3.7 cm RA A4 area: 10.4 cm2 TAPSE: 2.2 cm Time Measurements MV dec time: 0.20 sec Doppler Measurements & Calculations MV E max rudolph: 79.5 cm/sec Lat Peak E' Rudolph: 7.7 cm/sec Med Peak E' Rudolph: 9.3 cm/sec MV A max rudolph: 88.6 cm/sec E/E' lat: 10.3 E/E' med: 8.5 MV E/A: 0.90 MV V2 max: 82.8 cm/sec Ao V2 max: 128.1 cm/sec MV max P.8 mmHg MV dec slope: 411.9 cm/sec2 Ao max P.6 mmHg MV V2 mean: 59.4 cm/sec Ao V2 mean: 85.8 cm/sec MV mean P.5 mmHg Ao mean P.4 mmHg MV V2 VTI: 19.8 cm Ao V2 VTI: 22.5 cm AV (velocity ratio): 0.84 LV V1 max: 115.1 cm/sec PA V2 max: 96.9 cm/sec LV V1 max P.3 mmHg PA V2 mean: 65.7 cm/sec LV V1 mean P.7 mmHg LV V1 mean: 76.5 cm/sec LV V1 VTI: 19.0 cm ECHO/Echo Complete Interpretation Summary The estimated ejection fraction is 55-60 %. No previous study to compare Ordering Physician: Marylou Frazier Referring Physician: [facility] Performed By: Jazmin Gaona, ALEXANDER, RVT
[2023-07-29 08:00] LABS: Cholesterol 177 mg/dL (200); High Density Lipoprotein 39 mg/dL; Triglycerides 302 mg/dL; Very Low Density Lipoprotein 60 mg/dL (5-40)
--- NOTE | 2023-07-29 08:31 | CON.PCM.CC_ITS ---
HPI Consult Data Date of Consult: 07/29/23 HPI Narrative Reason for Consultation: Acute stroke s/p TNK HPI Narrative: BECKY JONES, is a 48 M w/ HIV on biktarvy, BHASKAR not compliant with BiPAP, anxiety/depression, RLS, hypothyroidism, GERD, obesity, tobacco use who was admitted for stroke-like sx. He reports being in usual state of health until earlier this AM when he developed acute onset L sided numbness/weakness when driving to work. He presented to ED for this and was seen by tele-neuro who recommended TNK for possible CVA. CT head neg, CTA without LVO. He was admitted to ICU for closer monitoring after this. He reports improvement in numbness/weakness though not totally resolved. Also reports mild ZULETA. Had transient dyspnea during episode which is now resolved, no chest pain. Denies any similar neuro sx in past or h/o stroke. No recent infections, illnesses prior to this episode. Denies prior cardiovascular disease, DM. Smoking 1-2 cigs per day now. Occasional EtOH. Denies illicit substances. Denies fevers, chills, nausea, vomiting, diarrhea, syncope, presyncope, dysphagia, odynophagia, orthopnea, paroxysmal, nocturnal dyspnea, chest pain, reflux symptoms, belly pain, dysuria, hematuria, melena, hematochezia, seizures. [facility] Medical History Cubital tunnel syndrome on right Right carpal tunnel syndrome Hx of blood diseases Restless legs Difficulty swallowing Former smoker History of echocardiogram Wears glasses Wears dentures Depression Anxiety Thyroid disease High cholesterol GERD (gastroesophageal reflux disease) BiPAP (biphasic positive airway pressure) dependence Sleep apnea History of stress test Major depressive disorder, recurrent severe without psychotic features Hyperlipidemia Left carpal tunnel syndrome Cubital tunnel syndrome on left Hypothyroidism Hypertension HIV (human immunodeficiency virus infection) Home Medications ?Medication ?Instructions ?Recorded ?Last Taken ?Type atorvastatin 10 mg tablet 20 mg PO QHS 08/11/22 Unknown History cholecalciferol (vitamin D3) 25 25 mcg PO DAILY 08/11/22 Unknown History mcg (1,000 unit) tablet levothyroxine 25 mcg tablet 25 mcg PO DAILY 08/11/22 Unknown History montelukast 10 mg tablet 10 mg PO DAILY PRN Allergy Symptoms 08/11/22 Unknown History omeprazole 40 mg capsule,delayed 40 mg PO DAILY 08/11/22 Unknown History release varenicline 0.5 mg (11)-1 mg (42) See Rx Instructions PO PER PKG DIR 08/11/22 Unknown History tablets in a dose pack vilazodone 40 mg tablet 40 mg PO DAILY 08/11/22 Unknown History bictegravir 50 mg-emtricitabine 1 tab PO DAILY 08/18/22 Unknown History 200 mg-tenofovir alafenam 25 mg tablet (Biktarvy) lisinopril 10 mg tablet 20 mg PO DAILY 03/16/23 Unknown History cariprazine 1.5 mg capsule 3 mg PO DAILY 07/20/23 Unknown History (Vraylar) buspirone 15 mg tablet 30 mg PO BID 07/29/23 Unknown History Allergy/AdvReac Type Severity Reaction Status Date / Time amoxicillin Allergy Rash Verified 07/20/23 10:19 amoxicillin trihydrate (From Allergy Hives Verified 07/20/23 10:19 Augmentin) dicyclomine (From Bentyl) Allergy Rash Verified 07/20/23 10:19 potassium clavulanate (From Allergy Hives Verified 07/20/23 10:19 Augmentin) sertraline (From Zoloft) Allergy Rash Verified 07/20/23 10:19 venlafaxine Allergy Rash Verified 07/20/23 10:19 adhesive AdvReac Itching Verified 07/20/23 10:19 topiramate AdvReac Rash Verified 07/20/23 10:19 Family History Father Diabetes Hypertension Congestive heart failure (CHF) Myocardial infarction Mother Thyroid cancer Uncle Colon cancer Surgical History History of carpal tunnel release of both wrists History of cholecystectomy Social History (Updated 07/29/23 @ 06:[address] Marylou Frazier MD) household members: significant other Smoking Status: Current some day smoker tobacco type: cigarettes alcohol intake: never substance use type: does not use ROS ROS Narrative 12-point ROS negative except as per HPI Objective Data Objective Data Vital Signs: Vital Signs Last response 3 Temperature 36.4 C L 07/29/23 07:16 Temperature Source Oral 07/29/23 07:16 Pulse Rate 87 07/29/23 08:16 Respiratory Rate 25 H 07/29/23 08:16 Blood Pressure 114/98 H 07/29/23 08:16 Blood Pressure Mean 103 07/29/23 08:16 Blood Pressure Source Monitor 07/29/23 08:16 Blood Pressure Position Semi-Fowlers 07/29/23 08:16 Blood Pressure Location Right Arm 07/29/23 08:16 Pulse Ox 98 07/29/23 08:16 Oxygen Delivery Method Room Air 07/29/23 08:16 Current Meds Ordered / Administered: Current meds ordered / Administered 3 Generic Name Dose Route Start Last Admin Trade Name Freq PRN Reason Stop Dose Admin Acetaminophen 650 mg 07/29/23 07:16 Acetaminophen 325 Mg Tablet PO Q4H PRN PRN Fever, pain 1-12/06 Al Hydroxide/Mg Hydroxide 30 ml 07/29/23 07:16 Mag Hydrox/Al Hydrox/Simeth 30 Ml Udc PO Q6H PRN PRN Gastric Burning Albuterol Sulfate 2.5 mg 07/29/23 07:16 Albuterol 2.5 Mg/3 Ml Vial.Neb. INHALATION Q2H PRN PRN Dyspnea, wheezing Atorvastatin Calcium 20 mg 07/29/23 22:00 Atorvastatin Calcium 20 Mg Tablet PO QHS MAGGIE Buspirone HCl 30 mg 07/29/23 10:00 Buspirone 15 Mg Tablet PO BID MAGGIE Diphenhydramine HCl 50 mg 07/29/23 07:16 Diphenhydramine 50 Mg/Ml Syringe IV X1 PRN Allergic Reaction Epinephrine HCl 0.3 mg 07/29/23 07:16 Epi Pen (Equiv) 0.3 Mg Syringe IM 07/30/23 06:27 X1 PRN Alleric Reaction Guaifenesin 10 ml 07/29/23 07:16 Guaifenesin 10 Ml Udc (200mg/10ml) PO Q4H PRN PRN COUGH Sodium Chloride 1,000 mls @ 100 mls/hr 07/29/23 07:16 IV 07/29/23 17:15 .Q10H MAGGIE Nicardipine/Sodium Chloride 20 mg in 200 mls @ 50 mls/hr 07/29/23 07:16 Cardene-Farhat 20 Mg/200 Ml Soln CONT INF Q4H PRN See Instructions Protocol 5 MG/HR Famotidine 20 mg/ Sodium 10 mls @ 300 mls/hr 07/29/23 07:16 Chloride IV 07/30/23 07:17 X1 PRN Allergic Reaction Labetalol HCl 20 mg 07/29/23 07:16 Labetalol (Compound) 20 Mg/4 Ml Syringe IV 07/30/23 07:17 X1 PRN BP Goals Levothyroxine Sodium 25 mcg 07/29/23 10:00 Levothyroxine 25 Mcg Tablet PO DAILY@0600 MAGGIE Melatonin 3 mg 07/29/23 07:16 Melatonin 3 Mg Tablet PO QHS PRN PRN INSOMNIA Methylprednisolone 125 mg 07/29/23 07:16 Methylprednisolone 125 Mg/2 Ml Vial IV X1 PRN Allergic Reaction Montelukast Sodium 10 mg 07/29/23 07:16 Montelukast 10 Mg Tablet PO DAILY PRN PRN ALLERGIES Non-Formulary Medication 1 tablet 07/29/23 10:00 Jvgevrlly-Iqggkthb-Yxkgjdk Ala [Biktarvy] PO DAILY MAGGIE Non-Formulary Medication 3 mg 07/29/23 10:00 Cariprazine [Vraylar] PO DAILY MAGGIE Non-Formulary Medication 40 mg 07/29/23 10:00 Vilazodone PO DAILY MAGGIE Ondansetron HCl 4 mg 07/29/23 07:16 Ondansetron 4 Mg/2 Ml Vial IV Q8H PRN PRN NAUSEA/VOMITING Pantoprazole Sodium 40 mg 07/29/23 10:00 Pantoprazole Sodium 40 Mg Tablet PO DAILY MAGGIE Prochlorperazine Edisylate 5 mg 07/29/23 07:16 Prochlorperazine 10 Mg/2 Ml Vial IV Q4H PRN PRN Breakthrough Nausea/Vomiting Senna/Docusate Sodium 2 tablet 07/29/23 07:16 Senna/Docusate Sodium 1 Tablet PO BID PRN PRN Constipation Sodium Chloride 10 - 40 ml 07/29/23 07:59 0.9% Saline Lock 10 Ml Syringe IV UD PRN SALINE FLUSH Lab / Micro Data 07/29/23 05:29 07/29/23 05:29 Labs: Laboratory Results - last 24 hr 07/29/23 05:24: POC Glucose 202 H 07/29/23 05:29: WBC 6.2, RBC 4.68, Hgb 13.8, Hct 40.9, MCV 87.4, MCH 29.5, MCHC 33.7, RDW Std Deviation 40.3, RDW Coeff of Libby 12.7, Plt Count 294, MPV 9.1, Immature Gran % (Auto) 0.800, Neut % (Auto) 47.6, Lymph % (Auto) 37.2, [place] % (Auto) 11.2 H, Eos % (Auto) 1.9, Baso % (Auto) 1.3 H, Absolute Neuts (auto) 2.9, Absolute Lymphs (auto) 2.29, Nucleated RBC % 0, PT 12.7, INR 1.0, APTT 24.8, Sodium 138, Potassium 4.2, Chloride 109 H, Carbon Dioxide 23.0, Anion Gap 6, BUN 14, Creatinine 0.98, Estim Creat Clear Calc 104.10, Est GFR (MDRD) Af Amer 105, Est GFR (MDRD) Non-Af 87, BUN/Creatinine Ratio 14.4, Glucose 203 H, Calcium 8.9, Magnesium 2.0, Troponin I High Sens 3, Triglycerides 302 H, Cholesterol 177, LDL Cholesterol 78, VLDL Cholesterol 60 H, HDL Cholesterol 39 L, TSH 3.51 Imaging Radiology Impression Brain CT 07/29/23 05:28 IMPRESSION: Negative Brain CT without contrast. N.B. : The above Results were Read Back by Renae Keenan MD to Pascual Basurto MD, and understanding confirmed on 07/29/2023 05:43:49 (ET). Electronically Signed: Renae Keenan MD at 5:43 EDT Reading Location ID and State: [facility] / [place] , Service support , Chest X-Ray 07/29/23 05:28 IMPRESSION: No radiographic evidence of acute cardiopulmonary disease. Electronically Signed: Renae Keenan MD at 6:43 EDT , Head/Neck CTA 07/29/23 05:28 IMPRESSION: No CTA evidence for hemodynamically significant stenosis, thrombosis, dissection or aneurysm. N.B. : The above Results were Read Back by Renae Keenan MD to Pascual Basurto DO, and understanding confirmed on 07/29/2023 06:06:34 (ET). Electronically Signed: Renae Keenan MD at 6:08 EDT , ADDENDUM: 07/29/23 0615 IMPRESSION: No CTA evidence for hemodynamically significant stenosis, thrombosis, dissection or aneurysm. N.B. : The above Results were Read Back by Renae Keenan MD to Pascual Basurto DO, and understanding confirmed on 07/29/2023 06:06:34 (ET). Electronically Signed: Renae Keenan MD at 6:08 EDT , Assessment and Plan . Assessment and plan: Physical Exam: Gen - NAD, obese HEENT - MMM. Sclera anicteric Resp - CTAB. Breathing nonlabored CV - RRR. No m/g/r Abd - Soft, NT, ND Ext - No c/c/e. Skin - No rashes? Neuro - L sided weakness, numbness. Alert and oriented I have reviewed the pertinent vital sign, laboratory, and imaging data. ASSESSMENT: # Suspected acute CVA - s/p TNK per tele-neuro recs # HIV on biktarvy # HTN # BHASKAR not compliant with BiPAP # Anxiety/depression # RLS # Hypothyroidism # GERD # Obesity # Tobacco use PLAN: -s/p TNK. Monitor in ICU closely now with Q1h neuro checks -Neurology following. Agree with MR brain, echo, repeat CT head in 24 hrs to ensure no bleeding -Permissive HTN -PT/OT/ST -Cont home psych meds if safe for swallow -Encourage tobacco cessation FEN/GI: NPO pending ST eval Proph DVT/GI: SCDs Critical Care Time: 60 mins The entirety of this encounter was completed via telemedicine
[2023-07-29] MEDS: Levothyroxine 25 MCG TABLET PO (09:24)
[2023-07-29] MEDS: Pantoprazole Sodium 40 MG Tablet PO (09:24)
[2023-07-29] MEDS: busPIRone 15 MG TABLET 30 MG PO ×2 (09:24→20:51)
[2023-07-29 09:40] LABS: Hemoglobin A1c 6.2 % (3.8-5.6)
--- NOTE | 2023-07-29 09:43 | STROKE.CONS ---
Assessment and Plan: Stroke Assessment/Plan BECKY JONES is a 48 M with a history of HTN, R Carpal Tunnel Syndrome, Tobacco use, who presents for evaluation of acute onset L face/arm/leg numbness and L arm/leg weakness. The patient was driving to work when he had sudden onset symptoms. Presented to [place] ED for evaluation. Telestroke done with NIHSS 3 for LUE drift, LLE drift, L paresthesias. CTH without acute large territory infarct or hemorrhage. CTA without proximal LVO or critical high grade severe flow limiting stenosis. Recommended TNK. Admitted to ICU post TNK for monitoring and completion of stroke workup. Neurological examination post TNK shows NIHSS 2 for LLE drift, and L paresthesias. Paresthesias and LUE drift have improved. Neuroimaging reviewed. MRI Brain pending. TTE pending. LDL/A1C pending. On telemetry. IMPRESSION: The patient's constellation of signs and symptoms and neuroimaging findings are most consistent with acute ischemic stroke. RECOMMENDATIONS: - Admit to intensive care unit - Post IVTNK order sets - Requires a post 24 hour TNK CTH for stability, prior to initiation of any AP/AC or DVT ppx - Order the following test for stroke evaluation: MRI brain ( stroke protocol), Transthoracic echocardiogram, holter monitor, fasting lipid panel, HgbA1c - Occupational/Physical therapy consult - NPO until swallow evaluation. IVF - Permissive hypertension to goal SBP < 180/105 mm Hg - Anti-platelet medication : Holding until 24 hours post TNK, after completion of 24 hour stability CTH scan tomorrow, if stable and no concern for hemorrhage, recommend initiation of ASA 81 mg daily and DVT ppx - Statin therapy: Initiate high intensity statin if LDL > 70 - Vascular risk factor modification: - Hyperlipidemia: LDL Goal < 70 mg/dL - Smoking Cessation education - Recommend vascular risk factor modification with goal LDL < 70, blood pressure control, glyemic control, weight management. Promote lifestyle modification with weight control, physical activity, moderate alocohol and sodium intake. HPI Consult Data Date of Consult: 07/29/23 HPI Narrative HPI Narrative: BECKY JONES is a 48 M with a history of HTN, R Carpal Tunnel Syndrome, Tobacco use, who presents for evaluation of acute onset L face/arm/leg numbness and L arm/leg weakness. The patient was driving to work when he had sudden onset symptoms. Presented to [place] ED for evaluation. Telestroke done with NIHSS 3 for LUE drift, LLE drift, L paresthesias. CTH without acute large territory infarct or hemorrhage. CTA without proximal LVO or critical high grade severe flow limiting stenosis. Recommended TNK. Admitted to ICU post TNK for monitoring and completion of stroke workup. Neurological examination post TNK shows NIHSS 2 for LLE drift, and L paresthesias. Paresthesias and LUE drift have improved. Neuroimaging reviewed. MRI Brain pending. TTE pending. LDL/A1C pending. On telemetry. [facility] Medical History Cubital tunnel syndrome on right Right carpal tunnel syndrome Hx of blood diseases Restless legs Difficulty swallowing Former smoker History of echocardiogram Wears glasses Wears dentures Depression Anxiety Thyroid disease High cholesterol GERD (gastroesophageal reflux disease) BiPAP (biphasic positive airway pressure) dependence Sleep apnea History of stress test Major depressive disorder, recurrent severe without psychotic features Hyperlipidemia Left carpal tunnel syndrome Cubital tunnel syndrome on left Hypothyroidism Hypertension HIV (human immunodeficiency virus infection) Home Medications ?Medication ?Instructions ?Recorded ?Last Taken ?Type atorvastatin 10 mg tablet 20 mg PO QHS 08/11/22 Unknown History cholecalciferol (vitamin D3) 25 25 mcg PO DAILY 08/11/22 Unknown History mcg (1,000 unit) tablet levothyroxine 25 mcg tablet 25 mcg PO DAILY 08/11/22 Unknown History montelukast 10 mg tablet 10 mg PO DAILY PRN Allergy Symptoms 08/11/22 Unknown History omeprazole 40 mg capsule,delayed 40 mg PO DAILY 08/11/22 Unknown History release varenicline 0.5 mg (11)-1 mg (42) See Rx Instructions PO PER PKG DIR 08/11/22 Unknown History tablets in a dose pack vilazodone 40 mg tablet 40 mg PO DAILY 08/11/22 Unknown History bictegravir 50 mg-emtricitabine 1 tab PO DAILY 08/18/22 Unknown History 200 mg-tenofovir alafenam 25 mg tablet (Biktarvy) lisinopril 10 mg tablet 20 mg PO DAILY 03/16/23 Unknown History cariprazine 1.5 mg capsule 3 mg PO DAILY 07/20/23 Unknown History (Vraylar) buspirone 15 mg tablet 30 mg PO BID 07/29/23 Unknown History Allergy/AdvReac Type Severity Reaction Status Date / Time amoxicillin Allergy Rash Verified 07/20/23 10:19 amoxicillin trihydrate (From Allergy Hives Verified 07/20/23 10:19 Augmentin) dicyclomine (From Bentyl) Allergy Rash Verified 07/20/23 10:19 potassium clavulanate (From Allergy Hives Verified 07/20/23 10:19 Augmentin) sertraline (From Zoloft) Allergy Rash Verified 07/20/23 10:19 venlafaxine Allergy Rash Verified 07/20/23 10:19 adhesive AdvReac Itching Verified 07/20/23 10:19 topiramate AdvReac Rash Verified 07/20/23 10:19 Family History Father Diabetes Hypertension Congestive heart failure (CHF) Myocardial infarction Mother Thyroid cancer Uncle Colon cancer Surgical History History of carpal tunnel release of both wrists History of cholecystectomy Social History (Updated 07/29/23 @ 06:[address] Marylou Frazier MD) household members: significant other Smoking Status: Current some day smoker tobacco type: cigarettes alcohol intake: never substance use type: does not use Vital Signs Vital Signs Vital Signs: 07/29/23 05:21 07/29/23 05:23 07/29/23 05:30 Temperature 98.1 F 98.1 F Temperature Source Oral Oral Pulse Rate 96 96 96 Respiratory Rate 12 15 12 Blood Pressure 116/69 116/69 116/69 Blood Pressure Mean 84 84 84 Blood Pressure Source Blood Pressure Position Blood Pressure Location Pulse Ox 99 100 100 Oxygen Delivery Method Room Air Room Air Room Air 07/29/23 05:35 07/29/23 05:36 07/29/23 06:04 Temperature 98.1 F Temperature Source Oral Pulse Rate 96 95 Respiratory Rate 12 14 Blood Pressure 116/69 130/87 H Blood Pressure Mean 84 101 Blood Pressure Source Blood Pressure Position Blood Pressure Location Pulse Ox 100 97 Oxygen Delivery Method Room Air Room Air Room Air 07/29/23 06:28 07/29/23 06:30 07/29/23 06:45 Temperature 98.1 F 97.9 F Temperature Source Oral Oral Pulse Rate 91 88 Respiratory Rate 16 16 Blood Pressure 136/83 H 136/83 H 130/86 H Blood Pressure Mean 100 100 Blood Pressure Source Monitor Monitor Blood Pressure Position Semi-Fowlers Semi-Fowlers Blood Pressure Location Right Arm Right Arm Pulse Ox 96 96 Oxygen Delivery Method Room Air Room Air 07/29/23 07:00 07/29/23 07:08 07/29/23 07:16 Temperature 98.3 F 98.1 F 97.6 F L Temperature Source Oral Oral Pulse Rate 88 92 88 Respiratory Rate 19 H 18 15 Blood Pressure 132/86 H 132/86 H 106/83 H Blood Pressure Mean 101 101 90 Blood Pressure Source Monitor Monitor Blood Pressure Position Semi-Fowlers Semi-Fowlers Blood Pressure Location Right Arm Left Arm Pulse Ox 97 97 98 Oxygen Delivery Method Room Air Room Air 07/29/23 07:31 07/29/23 07:46 07/29/23 08:01 Temperature Temperature Source Pulse Rate 87 90 86 Respiratory Rate 12 18 18 Blood Pressure 118/93 H 132/74 H 145/103 H Blood Pressure Mean 101 93 117 Blood Pressure Source Monitor Monitor Monitor Blood Pressure Position Semi-Fowlers Supine Semi-Fowlers Blood Pressure Location Right Arm Right Arm Right Arm Pulse Ox 98 98 96 Oxygen Delivery Method Room Air Room Air Room Air 07/29/23 08:16 07/29/23 08:31 07/29/23 08:46 Temperature Temperature Source Pulse Rate 87 90 88 Respiratory Rate 25 H 17 14 Blood Pressure 114/98 H 115/71 129/90 H Blood Pressure Mean 103 85 103 Blood Pressure Source Monitor Monitor Monitor Blood Pressure Position Semi-Fowlers Semi-Fowlers Semi-Fowlers Blood Pressure Location Right Arm Right Arm Left Arm Pulse Ox 98 98 97 Oxygen Delivery Method Room Air Room Air Room Air 07/29/23 09:01 07/29/23 09:16 Temperature Temperature Source Pulse Rate 100 93 Respiratory Rate 22 H 15 Blood Pressure 130/87 H 146/99 H Blood Pressure Mean 101 114 Blood Pressure Source Monitor Monitor Blood Pressure Position Semi-Fowlers Semi-Fowlers Blood Pressure Location Right Arm Right Arm Pulse Ox 98 95 Oxygen Delivery Method Room Air Room Air Weight Weight: 106.594 kg Body Mass Index (BMI) 37.9 EEG Results Procedure Details EEG Procedure Details: BECKY JONES is a 48 year old M with a past medical history of , who presents for evaluation of Electroencephalogram on DATE at TIME NIHSS NIHSS Nursing Documentation NIHSS Nursing Documentation: Thrombolytic: Vital Signs & NIHSS Start: 07/29/23 06:14 Text: Assess and document vital signs and NIHSS Status: Complete within 15 minutes of tenecteplase bolus administration Freq: [id number],Q1HX16,Q2H Protocol: Activity Type Activity Date Activity User E-sign Co-sign Detail Recorded Client Recorded Date Recorded By Document 07/29/23 07:00 [id number] 07/29/23 07:04 07/29/23 07:00 Vital Signs [Temperature Protocol: VS] -Temperature (97.8 F-99.1 F) 98.3 F -Temperature Source Oral [Pulse] -Pulse Rate (60-100) 88 -Pulse Location Monitor [Respirations] -Respiratory Rate (12-18) 19 H -Respiratory rate source Monitor -Pulse Oximetry 97 -Oxygen Delivery Method Room Air [Blood Pressure] -Blood Pressure (90/60-120/80) 132/86 H -Blood Pressure Mean 101 -Source Monitor -Position Semi-Fowlers -Blood Pressure Location Right Arm -Is the SBP > or = 180 No -Is the DBP > or = 105 No NIH Stroke Scale [NIHSS] A score of 0 is normal or asymptomatic . Total possible score is 42. Inpatient: RN or Physician to activate a stroke alert for onset of new stroke symptoms or with NIHSS increase >/= 3 points. Following change in neurological status, NIHSS will be performed per physician order or more frequently PRN. -1a. Level of Consciousness Alert; keenly responsive -1b. LOC Questions Answers BOTH questions correctly. -1c. LOC Commands Performs both tasks correctly . -2. Best Gaze Normal -3. Visual No visual loss -4. Facial Palsy Normal symmetrical movements -5a. Left Arm Drift; arm drifts downward but doesn?t hit the bed -5b. Right Arm No drift; arm holds 90 (or 45 ) degrees for full 10 seconds -6a. Left Leg Drift; leg falls by the end of 5- seconds, but does not hit bed -6b. Right Leg No drift; leg holds 30-degree position for full 5 seconds -7. Limb Ataxia Absent -8. Sensory Mild-to- moderate sensory loss; -9. Best Language No aphasia; normal -10. Dysarthria Normal -11. Extinction and Inattention No abnormality -Total 3 Query Text:A score of 0 is normal or asymptomatic. Total possible score is 42 . ED: Notify Physician for NIHSS increase by > / = 3 points. Inpatient: RN or Physician to activate a stroke alert for NIHSS increase of > / = 3 points. Thrombolytic: Vital Signs & NIHSS Start: 07/29/23 07:16 Text: Assess and document vital signs and NIHSS Status: Active within 15 minutes prior to Tenecteplase administration Freq: [id number],Q1HX16,Q2H Protocol: Activity Type Activity Date Activity User E-sign Co-sign Detail Recorded Client Recorded Date Recorded By Document 07/29/23 09:16 [facility] [id number] 07/29/23 09:21 LRM 07/29/23 09:16 Vital Signs [Pulse] -Pulse Rate (60-100) 93 -Pulse Location Monitor [Respirations] -Respiratory Rate (12-18) 15 -Respiratory rate source Monitor -Pulse Oximetry 95 -Oxygen Delivery Method Room Air [Blood Pressure] -Blood Pressure (90/60-120/80) 146/99 H -Blood Pressure Mean 114 -Source Monitor -Position Semi-Fowlers -Blood Pressure Location Right Arm -Is the SBP > or = 180 No -Is the DBP > or = 105 No NIH Stroke Scale [NIHSS] A score of 0 is normal or asymptomatic . Total possible score is 42. Inpatient: RN or Physician to activate a stroke alert for onset of new stroke symptoms or with NIHSS increase >/= 3 points. Following change in neurological status, NIHSS will be performed per physician order or more frequently PRN. -1a. Level of Consciousness Alert; keenly responsive -1b. LOC Questions Answers BOTH questions correctly. -1c. LOC Commands Performs both tasks correctly . -2. Best Gaze Normal -3. Visual No visual loss -4. Facial Palsy Normal symmetrical movements -5a. Left Arm Drift; arm drifts downward but doesn?t hit the bed -5b. Right Arm No drift; arm holds 90 (or 45 ) degrees for full 10 seconds -6a. Left Leg Drift; leg falls by the end of 5- seconds, but does not hit bed -6b. Right Leg No drift; leg holds 30-degree position for full 5 seconds -7. Limb Ataxia Absent -8. Sensory Mild-to- moderate sensory loss; -9. Best Language No aphasia; normal -10. Dysarthria Normal -11. Extinction and Inattention No abnormality -Total 3 Query Text:A score of 0 is normal or asymptomatic. Total possible score is 42 . ED: Notify Physician for NIHSS increase by > / = 3 points. Inpatient: RN or Physician to activate a stroke alert for NIHSS increase of > / = 3 points. NIHSS 6a. Left Leg: Drift; leg falls by the end of 5-seconds, but does not hit bed 8. Sensory: Rknz-do-zanumswd sensory loss; Total: 2 Lab / Micro Data 07/29/23 05:29 07/29/23 05:29 Labs: Laboratory Results - last 24 hr 07/29/23 05:24: POC Glucose 202 H 07/29/23 05:29: WBC 6.2, RBC 4.68, Hgb 13.8, Hct 40.9, MCV 87.4, MCH 29.5, MCHC 33.7, RDW Std Deviation 40.3, RDW Coeff of Libby 12.7, Plt Count 294, MPV 9.1, Immature Gran % (Auto) 0.800, Neut % (Auto) 47.6, Lymph % (Auto) 37.2, Grundy % (Auto) 11.2 H, Eos % (Auto) 1.9, Baso % (Auto) 1.3 H, Absolute Neuts (auto) 2.9, Absolute Lymphs (auto) 2.29, Nucleated RBC % 0, PT 12.7, INR 1.0, APTT 24.8, Sodium 138, Potassium 4.2, Chloride 109 H, Carbon Dioxide 23.0, Anion Gap 6, BUN 14, Creatinine 0.98, Estim Creat Clear Calc 104.10, Est GFR (MDRD) Af Amer 105, Est GFR (MDRD) Non-Af 87, BUN/Creatinine Ratio 14.4, Glucose 203 H, Hemoglobin A1c 6.2 H, Calcium 8.9, Magnesium 2.0, Troponin I High Sens 3, Triglycerides 302 H, Cholesterol 177, LDL Cholesterol 78, VLDL Cholesterol 60 H, HDL Cholesterol 39 L, TSH 3.51 Imaging Radiology Impression Brain CT 07/29/23 05:28 IMPRESSION: Negative Brain CT without contrast. N.B. : The above Results were Read Back by Renae Keenan MD to Pascual Basurto MD, and understanding confirmed on 07/29/2023 05:43:49 (ET). Electronically Signed: Renae Keenan MD at 5:43 EDT , Chest X-Ray 07/29/23 05:28 IMPRESSION: No radiographic evidence of acute cardiopulmonary disease. Electronically Signed: Renae Keenan MD at 6:43 EDT , Head/Neck CTA 07/29/23 05:28 IMPRESSION: No CTA evidence for hemodynamically significant stenosis, thrombosis, dissection or aneurysm. N.B. : The above Results were Read Back by Renae Keenan MD to Pascual Basurto DO, and understanding confirmed on 07/29/2023 06:06:34 (ET). Electronically Signed: Renae Keenan MD at 6:08 EDT , ADDENDUM: 07/29/23 0615 IMPRESSION: No CTA evidence for hemodynamically significant stenosis, thrombosis, dissection or aneurysm. N.B. : The above Results were Read Back by Renae Keenan MD to Pascual Basurto DO, and understanding confirmed on 07/29/2023 06:06:34 (ET). Electronically Signed: Renae Keenan MD at 6:08 EDT , Active Medications Active Medications Active Medications: Current Medications Generic Name Dose Route Start Last Admin Trade Name Freq PRN Reason Stop Dose Admin Acetaminophen 650 mg 07/29/23 07:16 Acetaminophen 325 Mg Tablet PO Q4H PRN PRN Fever, pain 1-12/06 Al Hydroxide/Mg Hydroxide 30 ml 07/29/23 07:16 Mag Hydrox/Al Hydrox/Simeth 30 Ml Udc PO Q6H PRN PRN Gastric Burning Albuterol Sulfate 2.5 mg 07/29/23 07:16 Albuterol 2.5 Mg/3 Ml Vial.Neb. INHALATION Q2H PRN PRN Dyspnea, wheezing Atorvastatin Calcium 20 mg 07/29/23 22:00 Atorvastatin Calcium 20 Mg Tablet PO QHS MAGGIE Buspirone HCl 30 mg 07/29/23 10:00 07/29/23 09:24 Buspirone 15 Mg Tablet PO 30 mg BID MAGGIE Administration Diphenhydramine HCl 50 mg 07/29/23 07:16 Diphenhydramine 50 Mg/Ml Syringe IV X1 PRN Allergic Reaction Epinephrine HCl 0.3 mg 07/29/23 07:16 Epi Pen (Equiv) 0.3 Mg Syringe IM 07/30/23 06:27 X1 PRN Alleric Reaction Guaifenesin 10 ml 07/29/23 07:16 Guaifenesin 10 Ml Udc (200mg/10ml) PO Q4H PRN PRN COUGH Sodium Chloride 1,000 mls @ 100 mls/hr 07/29/23 07:16 07/29/23 09:23 IV 07/29/23 17:15 100 mls/hr .Q10H MAGGIE Administration Nicardipine/Sodium Chloride 20 mg in 200 mls @ 50 mls/hr 07/29/23 07:16 Cardene-Farhat 20 Mg/200 Ml Soln CONT INF Q4H PRN See Instructions Protocol 5 MG/HR Famotidine 20 mg/ Sodium 10 mls @ 300 mls/hr 07/29/23 07:16 Chloride IV 07/30/23 07:17 X1 PRN Allergic Reaction Labetalol HCl 20 mg 07/29/23 07:16 Labetalol (Compound) 20 Mg/4 Ml Syringe IV 07/30/23 07:17 X1 PRN BP Goals Levothyroxine Sodium 25 mcg 07/29/23 10:00 07/29/23 09:24 Levothyroxine 25 Mcg Tablet PO 25 mcg DAILY@0600 MAGGIE Administration Melatonin 3 mg 07/29/23 07:16 Melatonin 3 Mg Tablet PO QHS PRN PRN INSOMNIA Methylprednisolone 125 mg 07/29/23 07:16 Methylprednisolone 125 Mg/2 Ml Vial IV X1 PRN Allergic Reaction Montelukast Sodium 10 mg 07/29/23 07:16 Montelukast 10 Mg Tablet PO DAILY PRN PRN ALLERGIES Non-Formulary Medication 1 tablet 07/29/23 10:00 Vsfclmuub-Elvqsave-Yhylkfx Ala [Biktarvy] PO DAILY MAGGIE Non-Formulary Medication 3 mg 07/29/23 10:00 Cariprazine [Vraylar] PO DAILY MAGGIE Non-Formulary Medication 40 mg 07/29/23 10:00 Vilazodone PO DAILY MAGGIE Ondansetron HCl 4 mg 07/29/23 07:16 Ondansetron 4 Mg/2 Ml Vial IV Q8H PRN PRN NAUSEA/VOMITING Pantoprazole Sodium 40 mg 07/29/23 10:00 07/29/23 09:24 Pantoprazole Sodium 40 Mg Tablet PO 40 mg DAILY MAGGIE Administration Prochlorperazine Edisylate 5 mg 07/29/23 07:16 Prochlorperazine 10 Mg/2 Ml Vial IV Q4H PRN PRN Breakthrough Nausea/Vomiting Senna/Docusate Sodium 2 tablet 07/29/23 07:16 Senna/Docusate Sodium 1 Tablet PO BID PRN PRN Constipation Sodium Chloride 10 - 40 ml 07/29/23 07:59 0.9% Saline Lock 10 Ml Syringe IV UD PRN SALINE FLUSH
--- NOTE | 2023-07-29 09:54 | PCM.HOSP.N ---
Hospitalist Note Patient admitted early this morning for strokelike symptoms. Was given TNK in the ED and admitted to the ICU. Saw patient at the bedside in the morning. Patient was laying comfortably in bed, conversing normally, in no acute distress. Stated that his left sided numbness and tingling was improved from earlier this morning. Denied any other pain or discomfort at this time. Full progress note to follow tomorrow.
--- NOTE | 2023-07-29 10:32 | CASEMGMT ---
RN CM Assessment: Face to Face with pt for initial transition planning/care coordination assessment. RN CM introduced self and role at [facility], pt voices understanding and consents to assessment. Pt is A&O x4 and answers all questions appropriately at this time. Pt resting in bed with eyes closed. Care providers, pharmacy, and demographics verified/updated. Admitting Dx: stroke symptoms PCP: [facility] Specialists: Dr. Presley Preferred Pharmacy: [facility] Insurance: [employer] Prescription Benefit: yes LNOK: Pt reports he wants his friend Nazario [phone] Living Arrangements: Pt lives at home with friend, single level. Pt is independent with ADLs and IADLs. Transportation: Pt drives self and denies concerns with transportation. DME: CPAP but does not use it HHC/SNF: None Pt states no concerns with going home at time of dc. Pt states no further concerns/needs. CM to follow. Advised pt to ask CM if any further question/concerns/needs arise, voices understanding. Pt Goal: Home Plan: Home with no needs Khushbu ROY, RN, CCM
[2023-07-29] MEDS: VILAZODONE HYDROCHLORIDE 10 MG TABLET 40 MG PO (15:00)
[2023-07-29] MEDS: Atorvastatin Calcium 20 MG Tablet PO (20:52)
[2023-07-29] MEDS: CLARIFY ORDER NOTE (23:00)
--- NOTE | 2023-07-29 23:57 | CPS ---
Pt does not want to wear per RN and is non-compliant at home
[2023-07-30] VITALS (11 sets, daily range): BP systolic 129–157; BP diastolic 71–99; PULSE 97–105; RESP 10–18; TEMP 36.2–36.9; O2SAT 92–96; BMI 37.4
[2023-07-30 04:13] LABS: Absolute Lymphocyte Count 2.01 X10^3/uL (0.83-4.51); Absolute Neutrophil Count 4.1 X10^3/uL (2.0-7.7); Basophil# 0.07 X10^3/uL; Eosinophil# 0.11 X10^3/uL; Eosinophils% 1.6 % (0-5); Hematocrit 38.5 % (40-54); Hemoglobin 13.2 g/dL (13.0-16.5); Lymphocyte # 2.01 X10^3/ul (0.83-4.51); Lymphocyte % 28.4 % (19-41); Mean Corp Hgb Conc 34.3 g/dL (32-36); Mean Corpuscular Hgb 29.3 pg (27.0-32.0); Mean Corpuscular Volume 85.6 fL (80-94); Mean Platelet Vol. 9.1 fl (6.2-12.0); Monocyte% 9.9 % (0-10); NRBC Flagged by Analyzer 0 % (0-5); Neutrophil # 4.13 X10^3/uL (2.7-7.7); Neutrophil % 58.4 % (47-70); Platelet Count 289 K/mm3 (150-450); RBC Distribution Width CV 12.5 % (11.6-14.6); RBC Distribution Width SD 38.5 fl (35.1-43.9); White Blood Count 7.1 K/mm3 (4.4-11.0)
[2023-07-30 04:47] LABS: ALB/GLOB Ratio 0.8 RATIO (0.9-2.4); AST(SGOT) 18 U/L (15-37); Alanine Aminotransfer ALT/SGPT 40 U/L (16-61); Albumin, Serum 3.3 g/dL (3.2-5.0); Alkaline Phosphatase 112 U/L (45-117); Anion Gap 9 (5-15); BUN 13 mg/dL (7-18); BUN/Creat Ratio 14.1 RATIO (10-20); Chloride 108 mmol/L (98-107); Creatinine, Serum 0.92 mg/dL (0.70-1.30); EST Glomerular Filtration Rate 92 mL/min (>60); Est Glom Filt Rate - Afr Amer 112 mL/min (>60); Estimated Creatinine Clearance 110.62 ml/min; Glucose 130 mg/dL (74-106); Potassium 3.9 mmol/L (3.5-5.1); Protein, Total 7.3 g/dL (6.4-8.2); Sodium Level 140 mmol/L (136-145)
[2023-07-30] MEDS: Levothyroxine 25 MCG TABLET PO (06:11)
--- NOTE | 2023-07-30 06:30 | CT_ITS ---
STUDY: CT BRAIN WITHOUT CONTRAST REASON FOR EXAM: Male, 48 years old patient with CVA status post TNK administration presents for 24 hour follow-up. RADIATION DOSAGE (If Supplied By Facility): CTDIvol = ( 44.99 ) mGy, DLP = ( 779.24 ) mGycm TECHNIQUE: Transaxial CT imaging of the brain was performed without administration of intravenous contrast material. Multiplanar reformations are submitted for interpretation. Individualized dose optimization techniques were used for this CT. COMPARISON: CT head dated July 29, 2023. FINDINGS: Normal soft tissue structures. Normal calvarium. Normal size ventricles and extra-axial spaces for the patient''s age. Normal white matter tracts of the cerebral hemispheres. Normal basal ganglia and thalami. Normal brainstem. Normal cerebellum. There is no intracranial hemorrhage. There are no findings of an acute ischemic infarction. Normal visualized paranasal sinuses. CT/Brain/Head without Contrast IMPRESSION: No CT evidence of acute intracranial hemorrhage. Electronically Signed: Renae Keenan MD at 8:11 EDT ,
--- NOTE | 2023-07-30 07:16 | MRI_ITS ---
EXAM: MR HEAD WITHOUT INTRAVENOUS CONTRAST CLINICAL INDICATION: CVA -- MRI after IV thrombolytic administration GIVEN 07/28 06:28AM , LT SIDED WEAKNESS, PREVIOUS MRI AND CT TECHNIQUE: Multiplanar and multisequence MR images of the brain were obtained without intravenous contrast. COMPARISON: MRI brain with and without contrast 01/09/2015. FINDINGS: BRAIN AND EXTRA-AXIAL SPACES: Unremarkable. No intra- or extra-axial hemorrhage. No evidence of acute infarct. No intracranial mass or mass effect. There is preservation of the ayon/white matter interface. Posterior fossa structures are unremarkable. Ventricles are appropriate for age. No hydrocephalus. Basal cisterns are patent. SELLA: Unremarkable. Normal sella turcica, pituitary gland, infundibular stalk, optic chiasm and hypothalamus. AUDITORY SYSTEM: Unremarkable. The internal auditory canals are patent. BONES/JOINTS: Unremarkable. No discrete lytic or blastic abnormalities. SINUSES: Unremarkable as visualized. Clear. MASTOID AIR CELLS: Unremarkable as visualized. Clear. ORBITS: Unremarkable as visualized. Both globes, extraocular muscles, optic nerves and retrobulbar fat appear unremarkable. VASCULATURE: Unremarkable as visualized. Normal flow voids in the major intracranial circulation. MRI/Brain without Contrast IMPRESSION: Negative MRI brain without intravenous contrast and unchanged when compared to 01/09/2015. Electronically Signed: Juan R Sampson MD at 11:28 EDT ,
--- NOTE | 2023-07-30 08:52 | PN.CC_ITS ---
Objective Data Objective Data Vital Signs: Vital Signs Last response 3 Temperature 36.6 C 07/30/23 08:00 Temperature Source Temporal 07/30/23 08:00 Pulse Rate 105 H 07/30/23 08:00 Respiratory Rate 16 07/30/23 08:00 Blood Pressure 138/76 H 07/30/23 08:00 Blood Pressure Mean 96 07/30/23 08:00 Blood Pressure Source Monitor 07/30/23 08:00 Blood Pressure Position Semi-Fowlers 07/30/23 08:00 Blood Pressure Location Right Arm 07/30/23 08:00 Pulse Ox 94 07/30/23 08:00 Oxygen Delivery Method Room Air 07/30/23 08:00 I&O: I&O Last 24 Hours 3 07/29/23 07/29/23 07/30/23 11:59 23:59 11:59 Intake Total 188.33 / 188.33 1240 / 1240 Output Total 800 / 2075 800 / 2075 975 / 975 Balance -611.67 / -1886.67 -800 / -1886.67 265 / 265 I&O: Total Stay 3 07/29/23 05:19 thru 07/30/23 07:00 Intake Total 1428.33 Output Total 2575 Balance -1146.67 Current Meds Ordered / Administered: Current meds ordered / Administered 3 Generic Name Dose Route Start Last Admin Trade Name Freq PRN Reason Stop Dose Admin Acetaminophen 650 mg 07/29/23 07:16 Acetaminophen 325 Mg Tablet PO Q4H PRN PRN Fever, pain 1-10/10 Al Hydroxide/Mg Hydroxide 30 ml 07/29/23 07:16 Mag Hydrox/Al Hydrox/Simeth 30 Ml Udc PO Q6H PRN PRN Gastric Burning Albuterol Sulfate 2.5 mg 07/29/23 07:16 Albuterol 2.5 Mg/3 Ml Vial.Neb. INHALATION Q2H PRN PRN Dyspnea, wheezing Atorvastatin Calcium 20 mg 07/29/23 22:00 07/29/23 20:52 Atorvastatin Calcium 20 Mg Tablet PO 20 mg QHS MAGGIE Administration Buspirone HCl 30 mg 07/29/23 10:00 07/29/23 20:51 Buspirone 15 Mg Tablet PO 30 mg BID MAGGIE Administration Clarify Med Order 0 each 07/29/23 20:00 07/29/23 23:00 Clarify Order NOTE 1 each CLARIFY MAGGIE Administration Diphenhydramine HCl 50 mg 07/29/23 07:16 Diphenhydramine 50 Mg/Ml Syringe IV X1 PRN Allergic Reaction Guaifenesin 10 ml 07/29/23 07:16 Guaifenesin 10 Ml Udc (200mg/10ml) PO Q4H PRN PRN COUGH Nicardipine/Sodium Chloride 20 mg in 200 mls @ 50 mls/hr 07/29/23 07:16 Cardene-Farhat 20 Mg/200 Ml Soln CONT INF Q4H PRN See Instructions Protocol 5 MG/HR Levothyroxine Sodium 25 mcg 07/29/23 10:00 07/30/23 06:11 Levothyroxine 25 Mcg Tablet PO 25 mcg DAILY@0600 MAGGIE Administration Melatonin 3 mg 07/29/23 07:16 Melatonin 3 Mg Tablet PO QHS PRN PRN INSOMNIA Methylprednisolone 125 mg 07/29/23 07:16 Methylprednisolone 125 Mg/2 Ml Vial IV X1 PRN Allergic Reaction Montelukast Sodium 10 mg 07/29/23 07:16 Montelukast 10 Mg Tablet PO DAILY PRN PRN ALLERGIES Non-Formulary Medication 1 tablet 07/29/23 10:00 Zfewklyas-Qdbzadyt-Uheeqen Ala [Biktarvy] PO DAILY MAGGIE Non-Formulary Medication 3 mg 07/29/23 10:00 Cariprazine [Vraylar] PO DAILY MAGGIE Ondansetron HCl 4 mg 07/29/23 07:16 Ondansetron 4 Mg/2 Ml Vial IV Q8H PRN PRN NAUSEA/VOMITING Pantoprazole Sodium 40 mg 07/29/23 10:00 07/29/23 09:24 Pantoprazole Sodium 40 Mg Tablet PO 40 mg DAILY MAGGIE Administration Prochlorperazine Edisylate 5 mg 07/29/23 07:16 Prochlorperazine 10 Mg/2 Ml Vial IV Q4H PRN PRN Breakthrough Nausea/Vomiting Senna/Docusate Sodium 2 tablet 07/29/23 07:16 Senna/Docusate Sodium 1 Tablet PO BID PRN PRN Constipation Sodium Chloride 10 - 40 ml 07/29/23 07:59 0.9% Saline Lock 10 Ml Syringe IV UD PRN SALINE FLUSH Vilazodone HCl 40 mg 07/29/23 13:00 07/29/23 15:00 Vilazodone Hydrochloride 10 Mg Tablet PO 40 mg DAILY MAGGIE Administration Lab / Micro Data 07/30/23 04:00 07/30/23 04:00 Labs: Laboratory Results - last 24 hr 07/29/23 05:29: Hemoglobin A1c 6.2 H 07/30/23 04:00: WBC 7.1, RBC 4.50 L, Hgb 13.2, Hct 38.5 L, MCV 85.6, MCH 29.3, MCHC 34.3, RDW Std Deviation 38.5, RDW Coeff of Libby 12.5, Plt Count 289, MPV 9.1, Immature Gran % (Auto) 0.700, Neut % (Auto) 58.4, Lymph % (Auto) 28.4, Rabun % (Auto) 9.9, Eos % (Auto) 1.6, Baso % (Auto) 1.0, Absolute Neuts (auto) 4.1, Absolute Lymphs (auto) 2.01, Nucleated RBC % 0, Sodium 140, Potassium 3.9, C hloride 108 H, Carbon Dioxide 23.0, Anion Gap 9, BUN 13, Creatinine 0.92, Estim Creat Clear Calc 110.62, Est GFR (MDRD) Af Amer 112, Est GFR (MDRD) Non-Af 92, BUN/Creatinine Ratio 14.1, Glucose 130 H, Calcium 9.0, Total Bilirubin 0.40, AST 18, ALT 40, Alkaline Phosphatase 112, Total Protein 7.3, Albumin 3.3, Globulin 4.0, Albumin/Globulin Ratio 0.8 L Imaging Radiology Impression Echocardiogram 07/29/23 07:16 Interpretation Summary The estimated ejection fraction is 55-60 %. No previous study to compare Ordering Physician: Marylou Frazier Referring Physician: [facility] Performed By: Jazmin Gaona, ALEXANDER, RVT Brain CT 07/30/23 06:30 IMPRESSION: No CT evidence of acute intracranial hemorrhage. Electronically Signed: Renae Keenan MD at 8:11 EDT Reading Location ID and State: [facility] / [place] , Service support , Assessment and Plan . Assessment and plan: Subjective: No acute events o/n. Feels overall improved. Has mild L facial numbness but arm strength improved Physical Exam: Gen - NAD, obese HEENT - MMM. Sclera anicteric Resp - CTAB. Breathing nonlabored CV - RRR. No m/g/r Abd - Soft, NT, ND Ext - No c/c/e. Skin - No rashes? Neuro - L facial numbness. Alert and oriented I have reviewed the pertinent vital sign, laboratory, and imaging data. ASSESSMENT: # Suspected acute CVA - s/p TNK per tele-neuro recs # HIV on biktarvy # HTN # BHASKAR not compliant with BiPAP # Anxiety/depression # RLS # Hypothyroidism # GERD # Obesity # Tobacco use PLAN: -s/p TNK, stable for >24 hrs after this -Neurology following. MR brain pending. Repeat CT head this AM without bleed. Start ASA per neuro recs -Permissive HTN -Echo with normal LVEF, no ASD reported -PT/OT/ST -Cont biktarvy -Encourage tobacco cessation FEN/GI: PO diet per ST Proph DVT/GI: SCDs OK to downgrade from ICU status. We will sign off, please call with any questions or if clinical worsening The entirety of this encounter was completed via telemedicine
[2023-07-30] MEDS: VILAZODONE HYDROCHLORIDE 10 MG TABLET 40 MG PO (10:32)
[2023-07-30] MEDS: Aspirin E.C. 81 MG Tablet PO (10:33)
[2023-07-30] MEDS: Pantoprazole Sodium 40 MG Tablet PO (10:33)
[2023-07-30] MEDS: busPIRone 15 MG TABLET 30 MG PO (10:33)
--- NOTE | 2023-07-30 10:44 | STROKE.CONS ---
Assessment and Plan: Stroke Assessment/Plan BECKY JONES is a 48 M with a history of HTN, R Carpal Tunnel Syndrome, Tobacco use, who presents for evaluation of acute onset L face/arm/leg numbness and L arm/leg weakness. The patient was driving to work when he had sudden onset symptoms. Presented to [facility] ED for evaluation. Telestroke done with NIHSS 3 for LUE drift, LLE drift, L paresthesias. CTH without acute large territory infarct or hemorrhage. CTA without proximal LVO or critical high grade severe flow limiting stenosis. Recommended TNK. Admitted to ICU post TNK for monitoring and completion of stroke workup. Neurological examination post TNK 07/28 shows NIHSS 2 for LLE drift, and L paresthesias. Paresthesias and LUE drift have improved. Neurological examination today 07/29 shows even further improvement with NIHSS 1 for L facial numbness. CTH/CTA reviewed. CTH post TNK stable. MRI pending. TTE with EF 55-60%, no FPO. LDL 78. A1C 6.2 IMPRESSION: The patient's constellation of signs and symptoms and neuroimaging findings are most consistent with acute ischemic stroke. RECOMMENDATIONS: - Admitted to intensive care unit - Post IVTNK order sets - 24 hour post TNK CTH reviewed, stable - Follow up MRI Brain - Will need quality assurance monitor at discharge - Occupational/Physical therapy consult - Anti-platelet medication: continue ASA 81 mg daily - Statin therapy: Continue high intensity statin if LDL > 70 - Recommend vascular risk factor modification with goal LDL < 70, blood pressure control, glycemic control, weight management. Promote lifestyle modification with weight control, physical activity, moderate alocohol and sodium intake. Counseled on HgbA1C and need for close PCP follow up for initiation of diabetes management and consideration of medications. Follow up with PCP 1-2 weeks, Follow up with Neurology in 6-12 weeks. HPI Consult Data Date of Consult: 07/30/23 HPI Narrative HPI Narrative: BECKY JONES is a 48 M with a history of HTN, R Carpal Tunnel Syndrome, Tobacco use, who presents for evaluation of acute onset L face/arm/leg numbness and L arm/leg weakness. The patient was driving to work when he had sudden onset symptoms. Presented to [facility] ED for evaluation. Telestroke done with NIHSS 3 for LUE drift, LLE drift, L paresthesias. CTH without acute large territory infarct or hemorrhage. CTA without proximal LVO or critical high grade severe flow limiting stenosis. Recommended TNK. Admitted to ICU post TNK for monitoring and completion of stroke workup. Neurological examination post TNK 07/28 shows NIHSS 2 for LLE drift, and L paresthesias. Paresthesias and LUE drift have improved. Neurological examination today 07/29 shows even further improvement with NIHSS 1 for L facial numbness. CTH/CTA reviewed. CTH post TNK stable. MRI pending. TTE with EF 55-60%, no FPO. LDL 78. A1C 6.2 PFSH Medical History Cubital tunnel syndrome on right Right carpal tunnel syndrome Hx of blood diseases Restless legs Difficulty swallowing Former smoker History of echocardiogram Wears glasses Wears dentures Depression Anxiety Thyroid disease High cholesterol GERD (gastroesophageal reflux disease) BiPAP (biphasic positive airway pressure) dependence Sleep apnea History of stress test Major depressive disorder, recurrent severe without psychotic features Hyperlipidemia Left carpal tunnel syndrome Cubital tunnel syndrome on left Hypothyroidism Hypertension HIV (human immunodeficiency virus infection) Home Medications ?Medication ?Instructions ?Recorded ?Last Taken ?Type atorvastatin 10 mg tablet 20 mg PO QHS 08/11/22 Unknown History cholecalciferol (vitamin D3) 25 25 mcg PO DAILY 08/11/22 Unknown History mcg (1,000 unit) tablet levothyroxine 25 mcg tablet 25 mcg PO DAILY 08/11/22 Unknown History montelukast 10 mg tablet 10 mg PO DAILY PRN Allergy Symptoms 08/11/22 Unknown History omeprazole 40 mg capsule,delayed 40 mg PO DAILY 08/11/22 Unknown History release varenicline 0.5 mg (11)-1 mg (42) See Rx Instructions PO PER PKG DIR 08/11/22 Unknown History tablets in a dose pack vilazodone 40 mg tablet 40 mg PO DAILY 08/11/22 Unknown History bictegravir 50 mg-emtricitabine 1 tab PO DAILY 08/18/22 Unknown History 200 mg-tenofovir alafenam 25 mg tablet (Biktarvy) lisinopril 10 mg tablet 20 mg PO DAILY 03/16/23 Unknown History cariprazine 1.5 mg capsule 3 mg PO DAILY 07/20/23 Unknown History (Vraylar) buspirone 15 mg tablet 30 mg PO BID 07/29/23 Unknown History Allergy/AdvReac Type Severity Reaction Status Date / Time amoxicillin Allergy Rash Verified 07/20/23 10:19 amoxicillin trihydrate (From Allergy Hives Verified 07/20/23 10:19 Augmentin) dicyclomine (From Bentyl) Allergy Rash Verified 07/20/23 10:19 potassium clavulanate (From Allergy Hives Verified 07/20/23 10:19 Augmentin) sertraline (From Zoloft) Allergy Rash Verified 07/20/23 10:19 venlafaxine Allergy Rash Verified 07/20/23 10:19 adhesive AdvReac Itching Verified 07/20/23 10:19 topiramate AdvReac Rash Verified 07/20/23 10:19 Family History Father Diabetes Hypertension Congestive heart failure (CHF) Myocardial infarction Mother Thyroid cancer Uncle Colon cancer Surgical History History of carpal tunnel release of both wrists History of cholecystectomy Social History (Updated 07/29/23 @ 06:[address] Marylou Frazier MD) household members: significant other Smoking Status: Current some day smoker tobacco type: cigarettes alcohol intake: never substance use type: does not use Vital Signs Vital Signs Vital Signs: 07/29/23 10:46 07/29/23 11:16 07/29/23 11:46 Temperature 99.1 F 98.6 F Temperature Source Temporal Temporal Pulse Rate 95 95 99 Respiratory Rate 19 H 19 H 21 H Blood Pressure 141/89 H 129/88 H 132/89 H Blood Pressure Mean 106 101 103 Blood Pressure Source Monitor Monitor Monitor Blood Pressure Position Supine Semi-Fowlers Semi-Fowlers Blood Pressure Location Right Arm Right Arm Right Arm Pulse Ox 96 98 97 Oxygen Delivery Method Room Air Room Air Room Air 07/29/23 12:16 07/29/23 12:46 07/29/23 13:16 Temperature 98.8 F Temperature Source Temporal Pulse Rate 92 99 101 H Respiratory Rate 20 H 16 16 Blood Pressure 130/94 H 133/92 H 120/78 Blood Pressure Mean 106 105 92 Blood Pressure Source Monitor Monitor Monitor Blood Pressure Position Semi-Fowlers Semi-Fowlers Semi-Fowlers Blood Pressure Location Right Arm Right Arm Left Arm Pulse Ox 98 98 97 Oxygen Delivery Method Room Air Room Air Room Air 07/29/23 13:46 07/29/23 14:16 07/29/23 14:46 Temperature 99.1 F Temperature Source Temporal Pulse Rate 96 113 H 103 H Respiratory Rate 15 22 H 16 Blood Pressure 125/78 H 136/82 H 136/81 H Blood Pressure Mean 93 100 99 Blood Pressure Source Monitor Monitor Monitor Blood Pressure Position Semi-Fowlers Semi-Fowlers Semi-Fowlers Blood Pressure Location Left Arm Left Arm Left Arm Pulse Ox 98 97 97 Oxygen Delivery Method Room Air Room Air Room Air 07/29/23 15:06 07/29/23 16:00 07/29/23 16:02 Temperature 99.3 F H Temperature Source Temporal Pulse Rate 103 H 102 H Respiratory Rate 17 11 L Blood Pressure 142/88 H 142/87 H Blood Pressure Mean 106 105 Blood Pressure Source Monitor Monitor Blood Pressure Position Semi-Fowlers Semi-Fowlers Blood Pressure Location Left Arm Left Arm Pulse Ox 96 98 97 Oxygen Delivery Method Room Air Room Air Room Air 07/29/23 17:00 07/29/23 18:00 07/29/23 19:00 Temperature 98.2 F Temperature Source Temporal Pulse Rate 108 H 104 H 108 H Respiratory Rate 19 H 15 17 Blood Pressure 155/99 H 139/73 H 152/98 H Blood Pressure Mean 117 95 116 Blood Pressure Source Monitor Monitor Monitor Blood Pressure Position Semi-Fowlers Semi-Fowlers Supine Blood Pressure Location Left Arm Left Arm Right Arm Pulse Ox 96 95 94 Oxygen Delivery Method Room Air Room Air Room Air 07/29/23 20:00 07/29/23 21:00 07/29/23 22:00 Temperature 97.7 F L 97.7 F L 98 F Temperature Source Temporal Temporal Temporal Pulse Rate 106 H 100 100 Respiratory Rate 15 17 16 Blood Pressure 148/74 H 167/90 H 154/93 H Blood Pressure Mean 98 115 113 Blood Pressure Source Monitor Monitor Monitor Blood Pressure Position Supine Supine Blood Pressure Location Right Arm Left Arm Right Arm Pulse Ox 97 94 95 Oxygen Delivery Method Room Air Room Air Room Air 07/29/23 23:00 07/30/23 00:00 07/30/23 01:00 Temperature 98 F 97.4 F L 97.5 F L Temperature Source Temporal Temporal Temporal Pulse Rate 103 H 101 H 104 H Respiratory Rate 15 15 16 Blood Pressure 149/95 H 157/99 H 141/71 H Blood Pressure Mean 113 118 94 Blood Pressure Source Monitor Monitor Monitor Blood Pressure Position Supine Supine Supine Blood Pressure Location Left Arm Left Arm Left Arm Pulse Ox 95 96 93 Oxygen Delivery Method Room Air Room Air Room Air 07/30/23 02:00 07/30/23 03:00 07/30/23 04:00 Temperature 97.2 F L 98.4 F 98 F Temperature Source Temporal Temporal Temporal Pulse Rate 101 H 105 H 99 Respiratory Rate 10 L 15 12 Blood Pressure 130/75 H 134/78 H 139/96 H Blood Pressure Mean 93 96 110 Blood Pressure Source Monitor Monitor Blood Pressure Position Semi-Fowlers Supine Blood Pressure Location Left Arm Right Arm Pulse Ox 92 95 94 Oxygen Delivery Method Room Air Room Air Room Air 07/30/23 05:00 07/30/23 06:00 07/30/23 07:09 Temperature 98 F 98 F Temperature Source Temporal Temporal Pulse Rate 103 H 97 99 Respiratory Rate 15 14 15 Blood Pressure 129/80 H 140/77 H 135/78 H Blood Pressure Mean 96 98 97 Blood Pressure Source Monitor Monitor Monitor Blood Pressure Position Supine Supine Supine Blood Pressure Location Left Arm Left Arm Pulse Ox 94 95 94 Oxygen Delivery Method Room Air Room Air Room Air 07/30/23 07:25 07/30/23 08:00 Temperature 97.9 F Temperature Source Temporal Pulse Rate 105 H Respiratory Rate 16 Blood Pressure 138/76 H Blood Pressure Mean 96 Blood Pressure Source Monitor Blood Pressure Position Semi-Fowlers Blood Pressure Location Right Arm Pulse Ox 94 94 Oxygen Delivery Method Room Air Room Air Weight Weight: 105.6 kg Body Mass Index (BMI) 37.4 EEG Results Procedure Details EEG Procedure Details: BECKY JONES is a 48 year old M with a past medical history of , who presents for evaluation of Electroencephalogram on DATE at TIME NIHSS NIHSS Nursing Documentation NIHSS Nursing Documentation: Thrombolytic: Vital Signs & NIHSS Start: 07/29/23 06:14 Text: Assess and document vital signs and NIHSS Status: Complete within 15 minutes of tenecteplase bolus administration Freq: [id number],Q2H Protocol: Activity Type Activity Date Activity User E-sign Co-sign Detail Recorded Client Recorded Date Recorded By Document 07/29/23 07:00 [id number] 07/29/23 07:04 BW 07/29/23 07:00 Vital Signs [Temperature Protocol: VS] -Temperature (97.8 F-99.1 F) 98.3 F -Temperature Source Oral [Pulse] -Pulse Rate (60-100) 88 -Pulse Location Monitor [Respirations] -Respiratory Rate (12-18) 19 H -Respiratory rate source Monitor -Pulse Oximetry 97 -Oxygen Delivery Method Room Air [Blood Pressure] -Blood Pressure (90/60-120/80) 132/86 H -Blood Pressure Mean 101 -Source Monitor -Position Semi-Fowlers -Blood Pressure Location Right Arm -Is the SBP > or = 180 No -Is the DBP > or = 105 No NIH Stroke Scale [NIHSS] A score of 0 is normal or asymptomatic . Total possible score is 42. Inpatient: RN or Physician to activate a stroke alert for onset of new stroke symptoms or with NIHSS increase >/= 3 points. Following change in neurological status, NIHSS will be performed per physician order or more frequently PRN. -1a. Level of Consciousness Alert; keenly responsive -1b. LOC Questions Answers BOTH questions correctly. -1c. LOC Commands Performs both tasks correctly . -2. Best Gaze Normal -3. Visual No visual loss -4. Facial Palsy Normal symmetrical movements -5a. Left Arm Drift; arm drifts downward but doesn?t hit the bed -5b. Right Arm No drift; arm holds 90 (or 45 ) degrees for full 10 seconds -6a. Left Leg Drift; leg falls by the end of 5- seconds, but does not hit bed -6b. Right Leg No drift; leg holds 30-degree position for full 5 seconds -7. Limb Ataxia Absent -8. Sensory Mild-to- moderate sensory loss; -9. Best Language No aphasia; normal -10. Dysarthria Normal -11. Extinction and Inattention No abnormality -Total 3 Query Text:A score of 0 is normal or asymptomatic. Total possible score is 42 . ED: Notify Physician for NIHSS increase by > / = 3 points. Inpatient: RN or Physician to activate a stroke alert for NIHSS increase of > / = 3 points. Thrombolytic: Vital Signs & NIHSS Start: 07/29/23 07:16 Text: Assess and document vital signs and NIHSS Status: Active within 15 minutes prior to Tenecteplase administration Freq: [id number],[id number],Q2H Protocol: Activity Type Activity Date Activity User E-sign Co-sign Detail Recorded Client Recorded Date Recorded By Document 07/30/23 08:00 CG [id number] 07/30/23 08:12 CG 07/30/23 08:00 Vital Signs [Temperature Protocol: VS] -Temperature (97.8 F-99.1 F) 97.9 F -Temperature Source Temporal [Pulse] -Pulse Rate (60-100) 105 H -Pulse Location Monitor [Respirations] -Respiratory Rate (12-18) 16 -Respiratory rate source Observation -Pulse Oximetry 94 -Oxygen Delivery Method Room Air [Blood Pressure] -Blood Pressure (90/60-120/80) 138/76 H -Blood Pressure Mean 96 -Source Monitor -Position Semi-Fowlers -Blood Pressure Location Right Arm -Is the SBP > or = 180 No -Is the DBP > or = 105 No NIH Stroke Scale [NIHSS] A score of 0 is normal or asymptomatic . Total possible score is 42. Inpatient: RN or Physician to activate a stroke alert for onset of new stroke symptoms or with NIHSS increase >/= 3 points. Following change in neurological status, NIHSS will be performed per physician order or more frequently PRN. -1a. Level of Consciousness Alert; keenly responsive -1b. LOC Questions Answers BOTH questions correctly. -1c. LOC Commands Performs both tasks correctly . -2. Best Gaze Normal -3. Visual No visual loss -4. Facial Palsy Normal symmetrical movements -5a. Left Arm No drift; arm holds 90 (or 45 ) degrees for full 10 seconds -5b. Right Arm No drift; arm holds 90 (or 45 ) degrees for full 10 seconds -6a. Left Leg No drift; leg holds 30-degree position for full 5 seconds -6b. Right Leg No drift; leg holds 30-degree position for full 5 seconds -7. Limb Ataxia Absent -8. Sensory Normal; no sensory loss -9. Best Language No aphasia; normal -10. Dysarthria Normal -11. Extinction and Inattention No abnormality -Total 0 Query Text:A score of 0 is normal or asymptomatic. Total possible score is 42 . ED: Notify Physician for NIHSS increase by > / = 3 points. Inpatient: RN or Physician to activate a stroke alert for NIHSS increase of > / = 3 points. NIHSS 1a. Level of Consciousness: Alert; keenly responsive 1b. LOC Questions: Answers BOTH questions correctly. 1c. LOC Commands: Performs both tasks correctly. 2. Best Gaze: Normal 3. Visual: No visual loss 4. Facial Palsy: Normal symmetrical movements 5a. Left Arm: No drift; arm holds 90 (or 45) degrees for full 10 seconds 5b. Right Arm: No drift; arm holds 90 (or 45) degrees for full 10 seconds 6a. Left Leg: No drift; leg holds 30-degree position for full 5 seconds 6b. Right Leg: No drift; leg holds 30-degree position for full 5 seconds 7. Limb Ataxia: Absent 8. Sensory: [id number] sensory loss; 9. Best Language: No aphasia; normal 10. Dysarthria: Normal 11. Extinction and Inattention: No abnormality Total: 1 Lab / Micro Data 07/30/23 04:00 07/30/23 04:00 Labs: Laboratory Results - last 24 hr 07/30/23 04:00: WBC 7.1, RBC 4.50 L, Hgb 13.2, Hct 38.5 L, MCV 85.6, MCH 29.3, MCHC 34.3, RDW Std Deviation 38.5, RDW Coeff of Libby 12.5, Plt Count 289, MPV 9.1, Immature Gran % (Auto) 0.700, Neut % (Auto) 58.4, Lymph % (Auto) 28.4, Rincon % (Auto) 9.9, Eos % (Auto) 1.6, Baso % (Auto) 1.0, Absolute Neuts (auto) 4.1, Absolute Lymphs (auto) 2.01, Nucleated RBC % 0, Sodium 140, Potassium 3.9, Chloride 108 H, Carbon Dioxide 23.0, Anion Gap 9, BUN 13, Creatinine 0.92, Estim Creat Clear Calc 110.62, Est GFR (MDRD) Af Amer 112, Est GFR (MDRD) Non-Af 92, BUN/Creatinine Ratio 14.1, Glucose 130 H, Calcium 9.0, Total Bilirubin 0.40, AST 18, ALT 40, Alkaline Phosphatase 112, Total Protein 7.3, Albumin 3.3, Globulin 4.0, Albumin/Globulin Ratio 0.8 L Imaging Radiology Impression Echocardiogram 07/29/23 07:16 Interpretation Summary The estimated ejection fraction is 55-60 %. No previous study to compare Ordering Physician: Marylou Frazier Referring Physician: [facility] Performed By: Jazimn Gaona, ALEXANDER, RVT Brain CT 07/30/23 06:30 IMPRESSION: No CT evidence of acute intracranial hemorrhage. Electronically Signed: Renae Keenan MD at 8:11 EDT Reading Location ID and State: [address] [place] [address] , Service support , Active Medications Active Medications Active Medications: Current Medications Generic Name Dose Route Start Last Admin Trade Name Freq PRN Reason Stop Dose Admin Acetaminophen 650 mg 07/29/23 07:16 Acetaminophen 325 Mg Tablet PO Q4H PRN PRN Fever, pain 1-12/06 Al Hydroxide/Mg Hydroxide 30 ml 07/29/23 07:16 Mag Hydrox/Al Hydrox/Simeth 30 Ml Udc PO Q6H PRN PRN Gastric Burning Albuterol Sulfate 2.5 mg 07/29/23 07:16 Albuterol 2.5 Mg/3 Ml Vial.Neb. INHALATION Q2H PRN PRN Dyspnea, wheezing Aspirin 81 mg 07/30/23 09:05 07/30/23 10:33 Aspirin E.C. 81 Mg Tablet PO 81 mg BREAKFAST MAGGIE Administration Atorvastatin Calcium 20 mg 07/29/23 22:00 07/29/23 20:52 Atorvastatin Calcium 20 Mg Tablet PO 20 mg QHS MAGGIE Administration Buspirone HCl 30 mg 07/29/23 10:00 07/30/23 10:33 Buspirone 15 Mg Tablet PO 30 mg BID MAGGIE Administration Clarify Med Order 0 each 07/29/23 20:00 07/29/23 23:00 Clarify Order NOTE 1 each CLARIFY MAGGIE Administration Diphenhydramine HCl 50 mg 07/29/23 07:16 Diphenhydramine 50 Mg/Ml Syringe IV X1 PRN Allergic Reaction Enoxaparin Sodium 40 mg 07/30/23 10:00 Enoxaparin 40 Mg/0.4 Ml Syringe SC DAILY MAGGIE Guaifenesin 10 ml 07/29/23 07:16 Guaifenesin 10 Ml Udc (200mg/10ml) PO Q4H PRN PRN COUGH Nicardipine/Sodium Chloride 20 mg in 200 mls @ 50 mls/hr 07/29/23 07:16 Cardene-Farhat 20 Mg/200 Ml Soln CONT INF Q4H PRN See Instructions Protocol 5 MG/HR Levothyroxine Sodium 25 mcg 07/29/23 10:00 07/30/23 06:11 Levothyroxine 25 Mcg Tablet PO 25 mcg DAILY@0600 MAGGIE Administration Melatonin 3 mg 07/29/23 07:16 Melatonin 3 Mg Tablet PO QHS PRN PRN INSOMNIA Methylprednisolone 125 mg 07/29/23 07:16 Methylprednisolone 125 Mg/2 Ml Vial IV X1 PRN Allergic Reaction Montelukast Sodium 10 mg 07/29/23 07:16 Montelukast 10 Mg Tablet PO DAILY PRN PRN ALLERGIES Non-Formulary Medication 1 tablet 07/29/23 10:00 [id number]-Sdusuuw Ala [Biktarvy] PO DAILY MAGGIE Non-Formulary Medication 3 mg 07/29/23 10:00 Cariprazine [Vraylar] PO DAILY MAGGIE Ondansetron HCl 4 mg 07/29/23 07:16 Ondansetron 4 Mg/2 Ml Vial IV Q8H PRN PRN NAUSEA/VOMITING Pantoprazole Sodium 40 mg 07/29/23 10:00 07/30/23 10:33 Pantoprazole Sodium 40 Mg Tablet PO 40 mg DAILY MAGGIE Administration Prochlorperazine Edisylate 5 mg 07/29/23 07:16 Prochlorperazine 10 Mg/2 Ml Vial IV Q4H PRN PRN Breakthrough Nausea/Vomiting Senna/Docusate Sodium 2 tablet 07/29/23 07:16 Senna/Docusate Sodium 1 Tablet PO BID PRN PRN Constipation Sodium Chloride 10 - 40 ml 07/29/23 07:59 0.9% Saline Lock 10 Ml Syringe IV UD PRN SALINE FLUSH Vilazodone HCl 40 mg 07/29/23 13:00 07/30/23 10:32 Vilazodone Hydrochloride 10 Mg Tablet PO 40 mg DAILY AMGGIE Administration
--- NOTE | 2023-07-30 11:48 | PCM.DC.SUM ---
Providers Date of Admission: 07/29/23 Date of Discharge: 07/30/23 Primary Care Physician: [facility] Consultations 07/29/23 07:16 Consult: [employer] / Pulmonary Medicine Routine Consulting Provider: Pulmonary Medicine melanie Syed Reason for Consult: Acute Ischemic Stroke/TIA EMERGENT Consult: No Notified: Yes Date Notified: 07/29/23 Time Notified: 07:26 Method of Notification: Answering Service Consult: Tele-Neurology Routine Consulting Provider: [facility] Reason for Consult: Acute Ischemic Stroke/TIA EMERGENT Consult: Yes Notified: Yes Date Notified: 07/29/23 Time Notified: 06:27 Method of Notification: ED Physician Initiated Nursing Unit Staff Notify [facility] of Tele-Neurology Consult: Yes Reason For Visit: CVA S/P TNK ADMINISTRATION Diagnosis Discharge Diagnosis (1) CVA (cerebral vascular accident): Status: Acute Code(s): I63.9 - Cerebral infarction, unspecified Medications at Discharge Home Medications cholecalciferol (vitamin D3) 25 mcg (1,000 unit) tablet 25 mcg PO DAILY 08/11/22 levothyroxine 25 mcg tablet 25 mcg PO DAILY 08/11/22 montelukast 10 mg tablet 10 mg PO DAILY PRN Allergy Symptoms 08/11/22 omeprazole 40 mg capsule,delayed release 40 mg PO DAILY 08/11/22 varenicline 0.5 mg (11)-1 mg (42) tablets in a dose pack See Rx Instructions PO PER PKG DIR 08/11/22 vilazodone 40 mg tablet 40 mg PO DAILY 08/11/22 bictegravir 50 mg-emtricitabine 200 mg-tenofovir alafenam 25 mg tablet (Biktarvy) 1 tab PO DAILY 08/18/22 lisinopril 10 mg tablet 20 mg PO DAILY 03/16/23 cariprazine 1.5 mg capsule (Vraylar) 3 mg PO DAILY 07/20/23 buspirone 15 mg tablet 30 mg PO BID 07/29/23 aspirin 81 mg tablet,delayed release 81 mg PO BREAKFAST 90 days #90 tabs 07/30/23 atorvastatin 40 mg tablet 40 mg PO QHS 90 days #90 tabs 07/30/23 Hospital Course Operations None Procedures EKG, Transthoracic echo and - (CT brain without contrast x 2, CTA head/neck, MRI brain without contrast, chest x-ray) Summary of Care Provided Minutes Spent on Discharge: 35 Hospital Course: Patient is a 48-year-old male who presented to [facility] ED on 07/29/2023 with strokelike symptoms. Short hospital course as noted below. Discharged home in stable condition on 07/29. 1. Left-sided numbness and paresthesias suspected due to acute CVA Presented with sudden onset left upper and lower extremity numbness and paresthesias while driving. NIHSS score of [address] brain without contrast nonacute, CTA head/neck without proximal LVO or critical high-grade severe flow-limiting stenosis. Was given TNK in the ED and admitted to the ICU. Had good improvement in symptoms after TNK. Repeat CT brain without contrast at 24 hours nonacute. MRI brain on 07/29 with no concerning findings. TTE with EF 55 to 60%, no PFO. LDL 78. A1c 6.2%. Worked with PT/OT on 07/29 without issue and had no issues with speech or swallowing. ? Neurology followed. Symptoms on presentation most consistent with acute ischemic stroke despite negative imaging findings. 30-day cardiac event monitor ordered on discharge. Continue aspirin 81 mg daily and atorvastatin 40 mg daily on discharge. Recommend outpatient follow-up with PCP in 1 to 2 weeks and neurology in 6 to 12 weeks. Chronic medical conditions: ? HIV: Follows with Dr. Presley with ID. Last CD4 count greater than 300. Continue home Biktarvy. ? Hypertension: Stable. Continue home lisinopril. ? Hyperlipidemia: Continue home atorvastatin. ? Anxiety/depression: Stable. Continue home BuSpar, cariprazine and vilazodone. ? Hypothyroidism: TSH normal on admit. Continue home Synthroid. ? Obesity: BMI 37 on admit. Encouraged lifestyle modifications. Complicated hospital course, care and prognosis. ? Allergic rhinitis: Continue home montelukast. ? Former tobacco use: Encouraged continued cessation. ? BHASKAR: Continue home CPAP. ? GERD: Continue home PPI. Total clinical time spent by myself addressing the patient's medical issues, reviewing all the data, and collaborating with patient's care team: 35 minutes. Physical Exam Const alert, oriented x3, no apparent distress, healthy appearing and well nourished Constitutional Narrative: Pleasant middle-age male, obese, sitting up comfortably in bed, conversing normally, no acute distress. General Appearance: cooperative, comfortable, well kempt and well developed HEENT normocephalic, head/scalp atraumatic, hearing grossly normal bilaterally, nasal mucous membranes and turbinates normal and moist oral mucous membranes Eyes PERRL, EOMs intact bilaterally and conjunctivae normal Neck full ROM Chest inspection of chest normal Resp normal respiratory effort, normal air movement, no use of accessory muscles and clear to auscultation bilaterally Cardio regular rate, regular rhythm, no murmurs and peripheral pulses 2+ throughout GI normal to inspection, nondistended, normoactive bowel sounds, soft to palpation, non-tender and non-distended Back/Spine normal ROM Extremity normal to inspection, full ROM and no pedal edema Skin no rashes or lesions noted Neuro moves all extremities and no focal motor deficits Speech: speech normal Psych mental status grossly normal Weight / BMI Weight Weight: 105.6 kg Body Mass Index (BMI) 37.4 ABG / Lab / Microbiology Data 07/30/23 04:00 07/30/23 04:00 Laboratory: Laboratory Results - last 24 hr 07/30/23 04:00: WBC 7.1, RBC 4.50 L, Hgb 13.2, Hct 38.5 L, MCV 85.6, MCH 29.3, MCHC 34.3, RDW Std Deviation 38.5, RDW Coeff of Libby 12.5, Plt Count 289, MPV 9.1, Immature Gran % (Auto) 0.700, Neut % (Auto) 58.4, Lymph % (Auto) 28.4, [place] % (Auto) 9.9, Eos % (Auto) 1.6, Baso % (Auto) 1.0, Absolute Neuts (auto) 4.1, Absolute Lymphs (auto) 2.01, Nucleated RBC % 0, Sodium 140, Potassium 3.9, Chloride 108 H, Carbon Dioxide 23.0, Anion Gap 9, BUN 13, Creatinine 0.92, Estim Creat Clear Calc 110.62, Est GFR (MDRD) Af Amer 112, Est GFR (MDRD) Non-Af 92, BUN/Creatinine Ratio 14.1, Glucose 130 H, Calcium 9.0, Total Bilirubin 0.40, AST 18, ALT 40, Alkaline Phosphatase 112, Total Protein 7.3, Albumin 3.3, Globulin 4.0, Albumin/Globulin Ratio 0.8 L Radiography Diagnostic Testing: Radiology Impression Echocardiogram 07/29/23 07:16 Interpretation Summary The estimated ejection fraction is 55-60 %. No previous study to compare Ordering Physician: Marylou Frazier Referring Physician: [facility] Performed By: Jazmin Gaona, RDCS, RVT Brain CT 07/30/23 06:30 IMPRESSION: No CT evidence of acute intracranial hemorrhage. Electronically Signed: Renae Keenan MD at 8:11 EDT Reading Location ID and State: [facility] / [place] , Service support , Brain MRI 07/30/23 07:16 IMPRESSION: Negative MRI brain without intravenous contrast and unchanged when compared to 01/09/2015. Electronically Signed: Juan R Sampson MD at 11:28 EDT , Meaningful Use Info Meaningful Use Meaningful Use Diagnoses (Choose all that apply): Ischemic CVA CVA Therapy Assessed for PT,OT and/or ST?: Yes Ischemic Stroke Antithrombotic order at d/c?: Yes Dx of Atrial fib/flutter?: No Statin Dosing Therapy Reference: STATIN DOSE THERAPY REFERENCE: * Patients > 75 years receive moderate or high dose statin therapy. * Patients 75 years or YOUNGER should receive HIGH intensity statin dose unless contraindicated. You will be required to document reason for non-treatment if statin daily dose does not meet guidelines. HIGH DOSE STATIN THERAPY DAILY Atorvastatin > than or = to 40 mg Rosuvastatin > than or = to 20 mg Amlodipine + Atorvastatin > than or = to 2.5/40 mg Ezetimibe + Simvastatin 10/80 mg Simvastatin 80mg Statins at discharge?: Yes If patient is 75 or younger, pt will be discharged on HIGH intensity statin.: Yes Primary Dx Acute Ischemic CVA?: Yes Discharge Plan Admission Admit Date/Time: 07/29/23 06:23 Primary Reason for Your Visit: Strokelike symptoms Attending Provider: Negrito De Jesus Primary Care Provider: [facility] Lexi,Vesna Stockton Consulting Providers: Marylou Frazier; Loi Padgett; Solis Miller; Len Alonzo; Seng Del Toro; Paulo Dawkins; Buffy Membreno; Johnny Vieira; Elis Velasco; Meghan Elkins; Joel Cleveland; Julio Vega; Anmol Alford; Rudy Macias; Rylan Claire; Cresencio Jacobo; Summer Jeter NP; Yuval Aguayo; Evie Garcia; Martha Cedeno; Mady Banerjee; Mildred Berry; Shaw Lowery; Yoli Lopez; Johann Lopez; Rhett Woody; Nani Sesay; Hu Chauhan; Bryanna Earl; Deedee Dunn; Gissel Pike; Vignesh Weiss; Nahed Warren; Stan Walter; Bethany Brice; Aiden Guillen Instructions Additional Instructions / Restrictions: Please take aspirin 81 mg daily and atorvastatin 40 mg daily going forward. Continue all other home medications as normal. A 30-day heart event monitor will be sent to you in the mail, please wear this as instructed. Follow-up with your primary care doctor in the office in the next 1 to 2 weeks and follow-up with a neurologist in 6 to 12 weeks. Discharge Orders/Prescriptions Prescriptions: New aspirin 81 mg Tablet,Delayed Release (Dr/Ec) 81 mg PO BREAKFAST 90 Days Qty: 90 3RF atorvastatin 40 mg tablet 40 mg PO QHS 90 Days Qty: 90 1RF Continued vilazodone 40 mg tablet 40 mg PO DAILY omeprazole 40 mg capsule,delayed release(DR/EC) 40 mg PO DAILY Patient Comments: TAKE 1 CAPSULE BY MOUTH EVERY DAY levothyroxine 25 mcg tablet 25 mcg PO DAILY Patient Comments: take 1 tablet by mouth once daily cholecalciferol (vitamin D3) 25 mcg (1,000 unit) tablet 25 mcg PO DAILY Patient Comments: TAKE 1 TABLET BY MOUTH EVERY DAY montelukast 10 mg tablet 10 mg PO DAILY PRN (Reason: Allergy Symptoms) varenicline 0.5 mg (11)- 1 mg (42) tablets,dose pack See Rx Instructions PO PER PKG DIR Rx Instructions: PO PER PKG DIR Vraylar 1.5 mg capsule 3 mg PO DAILY Patient Comments: TAKE 1 CAPSULE BY MOUTH EVERY OTHER DAY lisinopril 10 mg tablet 20 mg PO DAILY Patient Comments: Biktarvy 50-200-25 mg tablet 1 tab PO DAILY Patient Comments: TAKE 1 TABLET BY MOUTH DAILY buspirone 15 mg tablet 30 mg PO BID Discontinued atorvastatin 10 mg tablet 20 mg PO QHS Other Ambulatory Orders: 30 Day Event Recorder Preventi (Urgent) Timeframe: 1 Month Facility: [facility] - Location: Cardiovascular Services Ordered By: Dr. Negrito De Jesus Referrals / Follow Up: [facility],Vesna Stockton [Primary Care Provider] - Disposition Disposition (needs filled in before D/C Order can be placed): Home, Self Care Charges/Coding Visit Charges Inpatient E&M: 10372 Disch Hosp >30min
== END 2023-07-30 12:20 | disposition home or self-care (01) | DRG 45 ==
LOC: ED 06:18 → ICU 06:53
PROVIDERS: Admitting Provider Family Medicine; Emergency Provider Emergency Medicine; Visit Provider Hospitalist
DX: I63.9 Cerebral infarction, unspecified (principal); G81.94 Hemiplegia, unspecified affecting left nondominant side; Z21 Asymptomatic human immunodeficiency virus [HIV] infection status; I10 Essential (primary) hypertension; E03.9 Hypothyroidism, unspecified; G25.81 Restless legs syndrome; F32.A Depression, unspecified; E66.9 Obesity, unspecified; E78.00 Pure hypercholesterolemia, unspecified; F41.9 Anxiety disorder, unspecified; G47.33 Obstructive sleep apnea (adult) (pediatric); J30.9 Allergic rhinitis, unspecified; K21.9 Gastro-esophageal reflux disease without esophagitis; F17.210 Nicotine dependence, cigarettes, uncomplicated; R29.704 NIHSS score 4; R29.701 NIHSS score 1; Z68.37 Body mass index [BMI] 37.0-37.9, adult; Z91.199 Patient's noncompliance with other medical treatment and regimen due to unspecified reason; Z79.899 Other long term (current) drug therapy
CPT/HCPCS: 51702; 70450; 70496; 70498; 70551; 71045; 80048; 80053; 80061; 82962; 83036; 83735; 84443; 84484; 85025; 85610; 85730; 92610; 93005; 93306; 94668; 99285; J3101; Q9967; A4216

== ENCOUNTER 2023-10-18 05:58 | Day surgery (SDC) | payer MEDICAID, SELFPAY ==
[2023-10-18] VITALS (8 sets, daily range): BP systolic 108–120; BP diastolic 70–75; PULSE 90–100; RESP 16–18; TEMP 36.1–37.1; O2SAT 91–100; BMI 35.9
[2023-10-18] MEDS: Lactated Ringers 1,000 ML 15 ML IV (06:36)
[2023-10-18 07:04] LABS: Bedside Glucose 95 mg/dL (74-106)
--- NOTE | 2023-10-18 07:06 | PCM.HP.STD ---
HPI - General HPI Narrative KD JONES, is a 48 M who presents for right cubital tunnel and right carpal tunnel release. no changes to h and p. ok to proceed. rab and post op instructions, as well as narcotic counselling done. right elbow and right wrist marked. dr mohr aware of recent TIA hx . will proceed, no further questions or concerns. MR#: [id number] Acct: [id number] Name: KD JONES Rep #: [id number] : 1975 Provider: Dr. Edilson Copeland MD Age/Sex: 48/M Location: [facility] [place] Status: Signed Intake Vital Signs 07/29/2407:50 Height 5 ft 6 in Intake Visit Reasons: right wrist Chief Complaint: pre-op Accompanied by: Self Allergies amoxicillin Allergy (Verified 10/10/23 10:34) Rashamoxicillin trihydrate (From Augmentin) Allergy (Verified 10/10/23 10:34) Hivesdicyclomine (From Bentyl) Allergy (Verified 10/10/23 10:34) Rashpotassium clavulanate (From Augmentin) Allergy (Verified 10/10/23 10:34) Hivessertraline (From Zoloft) Allergy (Verified 10/10/23 10:34) Rashvenlafaxine Allergy (Verified 10/10/23 10:34) Rashadhesive Adverse Reaction (Verified 10/10/23 10:34) Itchingtopiramate Adverse Reaction (Verified 10/10/23 10:34) Rash Medications ?Medication ?Instructions ?Recorded ?Confirmed ?Type cholecalciferol (vitamin D3) 25 25 mcg PO DAILY 08/11/22 10/10/23 History mcg (1,000 unit) tablet levothyroxine 25 mcg tablet 25 mcg PO DAILY 08/11/22 10/10/23 History montelukast 10 mg tablet 10 mg PO DAILY PRN Allergy Symptoms 08/11/22 10/10/23 History omeprazole 40 mg capsule,delayed 40 mg PO DAILY 08/11/22 10/10/23 History release varenicline 0.5 mg (11)-1 mg (42) 1 tab PO BID 08/11/22 10/10/23 History tablets in a dose pack vilazodone 40 mg tablet 40 mg PO DAILY 08/11/22 10/10/23 History bictegravir 50 mg-emtricitabine 1 tab PO DAILY 08/18/22 10/10/23 History 200 mg-tenofovir alafenam 25 mg tablet (Biktarvy) lisinopril 10 mg tablet 20 mg PO DAILY 03/16/23 10/10/23 History cariprazine 1.5 mg capsule 3 mg PO DAILY 07/20/23 10/10/23 History (Vraylar) buspirone 15 mg tablet 15 mg PO BID 07/29/23 10/10/23 History aspirin 81 mg tablet,delayed 81 mg PO BREAKFAST 90 days #90 tabs 07/30/23 10/10/23 Rx release atorvastatin 40 mg tablet 40 mg PO QHS 90 days #90 tabs 07/30/23 10/10/23 Rx metformin 500 mg tablet 500 mg PO DAILY 08/03/23 10/10/23 History PFSH Medical History Stroke/cerebrovascular accident Cubital tunnel syndrome on right Right carpal tunnel syndrome Hx of blood diseases Restless legs Former smoker History of echocardiogram Wears glasses Wears dentures Depression Anxiety Thyroid disease High cholesterol GERD (gastroesophageal reflux disease) BiPAP (biphasic positive airway pressure) dependence Sleep apnea History of stress test Major depressive disorder, recurrent severe without psychotic features Hyperlipidemia Left carpal tunnel syndrome Cubital tunnel syndrome on left Hypothyroidism Hypertension HIV (human immunodeficiency virus infection) Surgical History History of carpal tunnel release of both wrists History of cholecystectomy Family History Father Diabetes Hypertension Congestive heart failure (CHF) Myocardial infarctionMother Thyroid cancerUncle Colon cancer Social History household members: significant other Smoking Status: Current some day smoker tobacco type: cigarettes alcohol intake: never substance use type: does not use HPI right wrist Details: This documentation accurately reflects the service provided and the decisions made by me, Dr. Edilson Copelnad MD 10/10/23 1032. Part of today?s visit was documented by [ ], acting as scribe. KD JONES is a 48 year old M here today for follow-up to consider going ahead with right cubital tunnel and right carpal tunnel release. The patient has had a stroke recently. He has been cleared from his neurologist with the [facility]. Patient is not on any blood thinners. He smokes 1 cigarette/day. Ortho Exam General General: Yes no acute distress Neurologic: Yes alert and Yes oriented x3 Psychologic: Yes reasonable and appropriate Right Wrist/Hand Skin/Wound: Yes CDI, No Swelling, No Ecchymosis and Yes nail intact Right Wrist: Yes ROM-Extension 0-60, ROM-Flexion 0-80, ROM-Pronation 0-80, ROM-Supination 0-90, Durken's Test, Tinel's (pos at elbow neg at wrist) and Phalen's; No Thenar Atrophy or Hypothenar Atrophy Motor: EPL: 5, FDP-2: 5, 1st Dorsal Interosseous: 5 and APB: 5 Sensation: Radial: I, Ulnar: D and Median: I WRIST: pos compression and tinels at the right elbow, neg wartenburg, 5th finger abduction slightly weak vs other side. Left Wrist/Hand Skin/Wound: No Swelling and No Ecchymosis Right Elbow Skin/Wound: Yes CDI, No eccymosis, No erythema and No Swelling ROM: Yes Flexion 0-140 Test: Yes Tinel's Motor: Elbow Extension: 5 and Elbow Flexion: 5 Left Elbow Skin/Wound: Yes CDI, Yes healed, No eccymosis, No erythema and No Swelling Test: No TTP Medial Epicondyle and No TTP Lateral Epicondyle ROM: Yes Flexion 0-140 Sensation: Radial: I, Ulnar: I and Median: I Motor: Elbow Extension: 5, Elbow Flexion: 5, EPL: 5, FDP-2: 5 and 1st Dorsal Interosseous: 5 Supplemental Info [facility] Pulmonary Services/Neurology [address] [place] [address] MR#: [id number] Acct: [id number] Name: KD JONES Rep #: [id number] : 1975 48 From: Anderson Villasenor MD Referring Dr: Edilson Copeland MD Status: REG CLI Location: PSN Date: 07/12/23 Sex: M C NCS and/or EMG Patient Report Ordering Doctor: Edilson Copeland DATE OF SERVICE: 07/12/23 Kd presents with complaints of numbness in the right hand, primarily digits 4 and 5. He reports intermittent elbow pain. Electrodiagnostic findings: Right median motor nerve demonstrates prolonged distal latency with normal amplitude and borderline reduced conduction velocity. Ulnar motor nerve demonstrates normal distal latency and amplitude without significant drop in conduction across the elbow. Normal right median and ulnar F?wave. Prolonged right median sensory latency at the wrist. Normal ulnar and radial sensory responses. Needle EMG testing was performed in the right upper limb. All muscles tested showed no evidence of denervation with normal motor unit action potentials. Electrodiagnostic impression: This is an abnormal study of the right upper limb 1. Electrodiagnostic findings suggestive of right-sided median mononeuropathy. This consistent with a mild recurrent carpal tunnel syndrome. 2. There is no electrodiagnostic evidence for ulnar neuropathy, including cubital tunnel syndrome. No significant drop in conduction across the elbow and no denervation noted in ulnar innervated muscles. 3. There is no electrodiagnostic evidence for cervical radiculopathy. Multi Select Codes Neurology Neurology Interp Codes: 34371-47 Musc test done w/n test comp (interp) and 27849-28 Nrv cndj test 7-8 studies (interp) Coding Level of Care Code Off vis,est,level 4 Diagnoses Numbness and tingling of right arm R20.0; R20.2 Right carpal tunnel syndrome G56.01 Cubital tunnel syndrome on right G56.21 Assessment and Plan Assessment and Plan (1) Numbness and tingling of right arm: Status: Acute Plan: 48 year old M here today for follow-up to consider going ahead with right cubital tunnel and right carpal tunnel release. The patient has had a stroke recently. He has been cleared by his neurologist not on any blood thinners. We have the clearance per Louise in the office. Patient still interested to go ahead with surgery we booked him an updated the consent form today. I explained the risks including risk of a stroke as he has had a recent stroke that is always a risk for surgery. Could make this no better or worse and other risks associate with surgery like infection blood clots and other risks. He understands wished to go ahead no further questions or concerns. Pros and cons risks and benefits were discussed with the patient including but not limited to infection, pain, stiffness, bleeding, damage to surrounding structures, neurovascular injury, recurrence or retear, failure or wear of hardware or fixation, instability, fracture, deep vein thrombosis and pulmonary embolism, anesthetic risks, , patient dissatisfaction, need for further surgery and other risks. Patient understood and wished to proceed with surgery, and signed the informed consent documentation. (2) Right carpal tunnel syndrome: Status: Acute (3) Cubital tunnel syndrome on right: [facility] Medical History Stroke/cerebrovascular accident Cubital tunnel syndrome on right Right carpal tunnel syndrome Hx of blood diseases Restless legs Former smoker History of echocardiogram Wears glasses Wears dentures Depression Anxiety Thyroid disease High cholesterol GERD (gastroesophageal reflux disease) BiPAP (biphasic positive airway pressure) dependence Sleep apnea History of stress test Major depressive disorder, recurrent severe without psychotic features Hyperlipidemia Left carpal tunnel syndrome Cubital tunnel syndrome on left Hypothyroidism Hypertension HIV (human immunodeficiency virus infection) Home Medications ?Medication ?Instructions ?Recorded ?Last Taken ?Type cholecalciferol (vitamin D3) 25 25 mcg PO DAILY 08/11/22 Unknown History mcg (1,000 unit) tablet levothyroxine 25 mcg tablet 25 mcg PO DAILY 08/11/22 Unknown History montelukast 10 mg tablet 10 mg PO DAILY PRN Allergy Symptoms 08/11/22 Unknown History omeprazole 40 mg capsule,delayed 40 mg PO DAILY 08/11/22 Unknown History release varenicline 0.5 mg (11)-1 mg (42) 1 tab PO BID 08/11/22 Unknown History tablets in a dose pack vilazodone 40 mg tablet 40 mg PO DAILY 08/11/22 Unknown History bictegravir 50 mg-emtricitabine 1 tab PO DAILY 08/18/22 Unknown History 200 mg-tenofovir alafenam 25 mg tablet (Biktarvy) lisinopril 10 mg tablet 20 mg PO DAILY 03/16/23 Unknown History cariprazine 1.5 mg capsule 3 mg PO DAILY 07/20/23 Unknown History (Vraylar) buspirone 15 mg tablet 15 mg PO BID 07/29/23 Unknown History aspirin 81 mg tablet,delayed 81 mg PO BREAKFAST 90 days #90 tabs 07/30/23 08/03/23 Rx release atorvastatin 40 mg tablet 40 mg PO QHS 90 days #90 tabs 07/30/23 Unknown Rx metformin 500 mg tablet 500 mg PO DAILY 08/03/23 Unknown History Allergy/AdvReac Type Severity Reaction Status Date / Time amoxicillin Allergy Rash Verified 10/10/23 10:34 amoxicillin trihydrate (From Allergy Hives Verified 10/10/23 10:34 Augmentin) dicyclomine (From Bentyl) Allergy Rash Verified 10/10/23 10:34 potassium clavulanate (From Allergy Hives Verified 10/10/23 10:34 Augmentin) sertraline (From Zoloft) Allergy Rash Verified 10/10/23 10:34 venlafaxine Allergy Rash Verified 10/10/23 10:34 adhesive AdvReac Itching Verified 10/10/23 10:34 topiramate AdvReac Rash Verified 10/10/23 10:34 Family History Father Diabetes Hypertension Congestive heart failure (CHF) Myocardial infarction Mother Thyroid cancer Uncle Colon cancer Surgical History History of carpal tunnel release of both wrists History of cholecystectomy Social History household members: significant other Smoking Status: Current some day smoker tobacco type: cigarettes alcohol intake: never substance use type: does not use Vital Signs Vital Signs Vital Signs: 10/18/23 06:30 10/18/23 06:30 Temperature 98.7 F Temperature Source Temporal Pulse Rate 90 Respiratory Rate 18 Respiratory Pattern Normal Blood Pressure 109/74 Blood Pressure Mean 85 Blood Pressure Source Monitor Blood Pressure Position Semi-Fowlers Blood Pressure Location Left Arm Pulse Ox 100 Oxygen Delivery Method Room Air Weight Weight: 222 lb 10.67 oz Body Mass Index (BMI) 35.9 Results Lab / Micro Data Labs: Laboratory Results - last 24 hr 10/18/23 06:39: POC Glucose 95
--- NOTE | 2023-10-18 07:07 | PCM.PRE.AN2 ---
ASA Classification* ASA Classification ASA Classification: 2 Assessment & Plan Anesthesia* Anesthesia Assessment Anesthesia Assessment: Discussed sedation and/or anesthesia options, risks, benefits, and alternatives with patient/parents/legal guardian/POA. Questions invited. The patient/parents/legal guardian/POA seems to understand and agrees to proceed with anesthesia plan. Reviewed the physical assessment, medical history, allergy history and patient home medications list prior to surgery/procedure/anesthetic and documented any changes. Performed airway and anesthesia risk assessments. Anesthesia Type Anesthesia Type: MAC Anesthesia Focused Assessment* Temperature: 98.7 F Pulse Rate: 90 Blood Pressure: 109/74 Respiratory Rate: 18 Pulse Ox: 100 Airway Assessment Mouth opens: >3 cm Mallampati Score: II Focused Labs Anesthesia Preop lab: CBC WBC 7.1 K/mm3 (4.4-11.0) 07/30/23 04:00 RBC 4.50 M/mm3 (4.6-6.2) L 07/30/23 04:00 Hgb 13.2 g/dL (13.0-16.5) 07/30/23 04:00 Hct 38.5 % (40-54) L 07/30/23 04:00 Plt Count 289 K/mm3 (150-450) 07/30/23 04:00 CHEMISTRY Potassium 3.9 mmol/L (3.5-5.1) 07/30/23 04:00 Sodium 140 mmol/L (136-145) 07/30/23 04:00 Magnesium 2.0 mg/dL (1.6-2.6) 07/29/23 05:29 BUN 13 mg/dL (7-18) 07/30/23 04:00 Creatinine 0.92 mg/dL (0.70-1.30) 07/30/23 04:00 Glucose 130 mg/dL (74-106) H 07/30/23 04:00 POC Glucose 95 mg/dL (74-106) 10/18/23 06:39 TSH 3.51 uIU/mL (0.358-3.74) 07/29/23 05:29 COAG PT 12.7 SECONDS (11.7-14.9) 07/29/23 05:29 Pre-Assessment Diagnosis/Proposed Procedure Planned Operative Procedure(s): (R) Right Endoscopic Carpal Tunnel Release and right cubital tunnel release Anesthesia History 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 When Was Last Pacemaker Check QUESTION #4 FULL TEXT: You/Your Family Experience fever (hyperthermia) with Anesthesia Last Oral Intake Last Oral intake: Last Oral Intake NPO since 18:00 10/18/23 06:30 Meds taken in AM with sips of No 10/18/23 06:30 water? Meds patient instructed to take am of surgery PONV PONV - exploration engineer: PONV - exploration engineer Female No 10/10/23 08:24 HX of Motion Sickness No 10/10/23 08:24 HX of N/V After Surgery No 10/10/23 08:24 Non-Smoker No 10/10/23 08:24 Duration of Surgery greater No 10/10/23 08:24 than 60 minutes Number of Risk Factors PONV Score Height & Weight Height & Weight: Anesthesia: Height & Weight Height 5 ft 6 in 10/18/23 06:30 Weight: 101 kg 10/18/23 06:30 Body Mass Index (BMI) 35.9 10/18/23 06:30 Respiratory Assessment Respiratory Assessment - exploration engineer: Respiratory Tract Infection Hx - exploration engineer Hx Respiratory Tract Infection No 10/10/23 08:24 STOP Sleep Apnea STOP Sleep Apnea - exploration engineer: STOP Sleep Apnea - exploration engineer Hx Hypertension Yes: CONTROLLED WITH MEDS 10/10/23 08:24 Hx Sleep Apnea Yes 10/10/23 08:24 CPAP No 10/10/23 08:24 BIPAP Yes: DOESN'T WEAR 10/10/23 08:24 Do you snore loudly (louder No 10/10/23 08:24 than talking or can be heard Do you often feel tired/ No 10/10/23 08:24 fatigued/ sleepy during daytime? Has anyone observed you stop No 10/10/23 08:24 breathing during sleep? STOP Results Positive 10/10/23 08:24 QUESTION #5 FULL TEXT : Do you snore loudly (louder than talking or can be heard through closed doors)? 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 Specify any problems Hx of Preganancy in last 3 N/A 10/10/23 08:24 Months Nurse Filling Out Transfusion NBUCHER 10/10/23 08:24 & Questions: Date: 10/10/23 10/10/23 08:24 Time: 08:26 10/10/23 08:24 Patient unable to answer at this time (ie. confused, unrespo /Reproduction History /Reproductive History - exploration engineer: /Reproductive Hx- exploration engineer Hx Now Gestational Age (in weeks): EDC: Hx Hx Para Hx Section SAB Active Medications Active Medications: Current Medications Generic Name Dose Route Start Last Admin Trade Name Freq PRN Reason Stop Dose Admin Cefazolin Sodium 2 gm/ Sodium 110 mls @ 150 mls/hr 10/18/23 07:30 Chloride IV 10/18/23 08:13 PREOP ONE Lactated Ringer's 1,000 mls @ 15 mls/hr 10/18/23 06:15 10/18/23 06:36 IV 15 mls/hr .Q48H MAGGIE Administration PFSH Medical History Stroke/cerebrovascular accident Cubital tunnel syndrome on right Right carpal tunnel syndrome Hx of blood diseases Restless legs Former smoker History of echocardiogram Wears glasses Wears dentures Depression Anxiety Thyroid disease High cholesterol GERD (gastroesophageal reflux disease) BiPAP (biphasic positive airway pressure) dependence Sleep apnea History of stress test Major depressive disorder, recurrent severe without psychotic features Hyperlipidemia Left carpal tunnel syndrome Cubital tunnel syndrome on left Hypothyroidism Hypertension HIV (human immunodeficiency virus infection) Home Medications ?Medication ?Instructions ?Recorded ?Last Taken ?Type cholecalciferol (vitamin D3) 25 25 mcg PO DAILY 08/11/22 Unknown History mcg (1,000 unit) tablet levothyroxine 25 mcg tablet 25 mcg PO DAILY 08/11/22 Unknown History montelukast 10 mg tablet 10 mg PO DAILY PRN Allergy Symptoms 08/11/22 Unknown History omeprazole 40 mg capsule,delayed 40 mg PO DAILY 08/11/22 Unknown History release varenicline 0.5 mg (11)-1 mg (42) 1 tab PO BID 08/11/22 Unknown History tablets in a dose pack vilazodone 40 mg tablet 40 mg PO DAILY 08/11/22 Unknown History bictegravir 50 mg-emtricitabine 1 tab PO DAILY 08/18/22 Unknown History 200 mg-tenofovir alafenam 25 mg tablet (Biktarvy) lisinopril 10 mg tablet 20 mg PO DAILY 03/16/23 Unknown History cariprazine 1.5 mg capsule 3 mg PO DAILY 07/20/23 Unknown History (Vrkarla) buspirone 15 mg tablet 15 mg PO BID 07/29/23 Unknown History aspirin 81 mg tablet,delayed 81 mg PO BREAKFAST 90 days #90 tabs 07/30/23 08/03/23 Rx release atorvastatin 40 mg tablet 40 mg PO QHS 90 days #90 tabs 07/30/23 Unknown Rx metformin 500 mg tablet 500 mg PO DAILY 08/03/23 Unknown History Allergy/AdvReac Type Severity Reaction Status Date / Time amoxicillin Allergy Rash Verified 10/10/23 10:34 amoxicillin trihydrate (From Allergy Hives Verified 10/10/23 10:34 Augmentin) dicyclomine (From Bentyl) Allergy Rash Verified 10/10/23 10:34 potassium clavulanate (From Allergy Hives Verified 10/10/23 10:34 Augmentin) sertraline (From Zoloft) Allergy Rash Verified 10/10/23 10:34 venlafaxine Allergy Rash Verified 10/10/23 10:34 adhesive AdvReac Itching Verified 10/10/23 10:34 topiramate AdvReac Rash Verified 10/10/23 10:34 Family History Father Diabetes Hypertension Congestive heart failure (CHF) Myocardial infarction Mother Thyroid cancer Uncle Colon cancer Surgical History History of carpal tunnel release of both wrists History of cholecystectomy Social History household members: significant other Smoking Status: Current some day smoker tobacco type: cigarettes alcohol intake: never substance use type: does not use Review of Systems (Anesthesia) ROS Narrative System reviewed and no additional complaints, except as documented.
[2023-10-18] MEDS: Cefazolin 2 GM in 0.9% Normal Saline (100mL Bag) 100 ML IV (07:27)
[2023-10-18] MEDS: Bupivacaine 0.25% 30 ML Vial (07:50)
--- NOTE | 2023-10-18 08:55 | OP.PCM_ITS ---
Problems Associated Problem List Diagnoses (1) Cubital tunnel syndrome on right: (2) Right carpal tunnel syndrome: Report of Operation Date of Procedure: 10/18/23 Pre-Operative Diagnosis: R cubital tunnel and R carpal tunnel syndrome Post-Operative Diagnosis: same Surgery/Procedure Performed:: R endoscopic carpal tunnel release and right cubital tunnel release Description of Surgical Findings:: Surgeon: Edilson Copeland Type of Anesthesia: Local MAC and Local Anesthesiologist: Robin Adams Estimated Blood Loss (mL): 20 Description of Procedure: Patient was brought to the operating room theater.? The patient was administered 2g iv ancef prior to the start of the procedure.? Placed supine on the operating room table.? Anesthesia induced.? SCDs on the legs.? Tourniquet applied to the right upper operative extremity, appropriately padded. Arm table used. Operative extremity prepped and draped in the usual sterile fashion with chlorhexidine- based prep solution allowing over 3 minutes drying time prior to draping.? Preoperative timeout performed to confirm the site patient and the surgery. Limb limb elevated tourniquet inflated to 250 mmHg.? I turned my attention to the cubital tunnel release at the medial aspect of the elbow. Made a curved incision centered over the ulnar nerve. 10cc 0.25% bupivicaine used. Carried the dissection down through skin and subcutaneous tissue. Achieved meticulous hemostasis. Identified the ulnar nerve proximally. Carried the dissection down distally. There was moderate amount of scarred tissue to the nerve as well at the mid and distal aspect of the nerve. Released the nerve at all's 5 typical sites of compression including struthers arcade, Lovell's ligament, down distal to the 2 heads of FCU to the first motor branch of ulnar nerve. Nerve stable no subluxation. The nerve was a little bit flat just distal to the medical epicondyle, hourglass sign in that area. I used the [employer] center line endoscopic carpal tunnel kit / technique. I made a transverse 2 cm incision in line with the? transverse wrist crease.? This was in line with the fourth digit.? I carried the dissection down through skin and subcutaneous tissue achieved meticulous hemostasis. Just ulnar to palmaris tend on.? I incised the antebrachial fascia.? I passed sequential dilators into the carpal tunnel along the radial border of the Guyon's canal aiming for the fourth digit with the hand in extension.? I used a synovial elevator to identify the transverse fibers of the transverse carpal tunnel ligament.? Passed the scope into the carpal tunnel. Once I had identified the full proximal and distal extent of the ligament I fully released the ligament under direct visualization by deploying the blade and slowly withdrawing the scope made sequential passes until I no longer felt tension as well as the entire extent of the ligament was released under direct visualization.? Sounded the tunnel with mar tenotomy scissors, complete release, no bands. Arthroscope light was more visible through the skin. Pictures taken and saved. Wounds thoroughly irrigated.? Tourniquet let down prior to end of the case and meticulous hemostasis achieved.? Thorough irrigation.? ? Incisions closed with 2-0 vicryl and 3-0 Monocryl for the skin at the cubital tunnel, 3-0 ethilon simple sutures at the carpal tunnel release site.? Steri-Strips were applied after the skin was cleaned and dried. adaptic 4x4 gauze and wisam. Patient woken up,? transferred off the operating room table and taken to postanesthetic care unit in stable condition. All sponge needle instrument counts were correct no complications.? Plan for the patient to be discharged home according to day surgery criteria when they are comfortable. Follow-up in the office in 2 days time. Gentle ROM hand and elbow no heavy lifting. cpt 90615, [id number]? Grafts/Implants Used: none Complications none Admit VTE Documentation VTE Present on Admission: No VTE Mechan Device Prophylaxis: SCD's VTE Pharm Prophylaxis ordered?: No Reason prophylaxis not ordered:: Treatment Not Indicated Procedures Musculoskeletal [id number]: Other Procedure See Report
--- NOTE | 2023-10-18 09:01 | DCINST_ITS ---
Discharge Instructions Diet Discharge Diet: No restrictions Activity Lifting Restrictions: rom as tolerated, no heavy lifting or gripping Keep extremity elevated above heart level: Operative Extremity Dressing / Incision Call your doctor if your incision/area has: Continuous Slow Oozing, Sudden Increased Bleeding, Increased Pain/ Swelling, Increased Redness, Foul Smelling Discharge and Swelling at the incision site Call your doctor if you observe: Coldness, Increased Pain and Numbness or Tingling Remove Dressing in: leave in place till F/U Cleanse incision/area with: Do not get Incision Wet Follow Up Care Please Follow Up With: Edilson Copeland MD When: 2 days Test Results: Test results from this visit will be discussed in further detail at your follow- up appointment, if applicable. Discharge Plan Admission Attending Provider: Edilson Copeland [facility] Inst[facility] Print Language: [place] Island[place] Discharge Orders/Prescriptions Prescriptions: New oxycodone-acetaminophen [Percocet] 5-325 mg tablet 1 tab PO Q4H MDD 4 PRN (Reason: pain) 2 Days Qty: 10 0RF No Action vilazodone 40 mg tablet 40 mg PO DAILY omeprazole 40 mg capsule,delayed release(DR/EC) 40 mg PO DAILY Patient Comments: TAKE 1 CAPSULE BY MOUTH EVERY DAY levothyroxine 25 mcg tablet 25 mcg PO DAILY Patient Comments: take 1 tablet by mouth once daily cholecalciferol (vitamin D3) 25 mcg (1,000 unit) tablet 25 mcg PO DAILY Patient Comments: TAKE 1 TABLET BY MOUTH EVERY DAY montelukast 10 mg tablet 10 mg PO DAILY PRN (Reason: Allergy Symptoms) varenicline 0.5 mg (11)- 1 mg (42) tablets,dose pack 1 tab PO BID Rx Instructions: PO PER PKG DIR Vraylar 1.5 mg capsule 3 mg PO DAILY Patient Comments: TAKE 1 CAPSULE BY MOUTH EVERY OTHER DAY lisinopril 10 mg tablet 20 mg PO DAILY Patient Comments: Biktarvy 50-200-25 mg tablet 1 tab PO DAILY Patient Comments: TAKE 1 TABLET BY MOUTH DAILY metformin 500 mg tablet 500 mg PO DAILY buspirone 15 mg tablet 15 mg PO BID aspirin 81 mg Tablet,Delayed Release (Dr/Ec) 81 mg PO BREAKFAST 90 Days Qty: 90 3RF atorvastatin 40 mg tablet 40 mg PO QHS 90 Days Qty: 90 1RF [facility] - Edilson Copeland MD [Med Staff - Active Staff] - Disposition Disposition (needs filled in before D/C Order can be placed): Home, Self Care
--- NOTE | 2023-10-18 09:04 | PCM.POST.ANE ---
Anesthesia: Postop Eval I Current Vital Signs Temperature: 97 F Pulse Rate: 100 Blood Pressure: 118/75 Respiratory Rate: 18 Pulse Ox: 93 Assessment Airway patent: Yes Spontaneous unlabored respirations: Yes nausea: No Vomiting: No Anesthesia Complication: No Fluid Hydration Crystalloid volume administer (ml): 1,000 Total IV fluid infused: 1,000 Progress Note Anesthesia document: Postop Eval 1 completed: Yes
== END 2023-10-18 10:13 | disposition home or self-care (01) ==
LOC: SDC 05:58 → AC 05:59
PROVIDERS: Referring Provider Orthopaedic Surgery Sports Medicine; Visit Provider Orthopaedic Surgery Sports Medicine
PROC: (CPT 29848; principal; 2023-10-18 07:15)
DX: G56.01 Carpal tunnel syndrome, right upper limb (principal); Z21 Asymptomatic human immunodeficiency virus [HIV] infection status; E07.9 Disorder of thyroid, unspecified; E78.00 Pure hypercholesterolemia, unspecified; G56.21 Lesion of ulnar nerve, right upper limb; I10 Essential (primary) hypertension; F17.210 Nicotine dependence, cigarettes, uncomplicated; G47.30 Sleep apnea, unspecified; Z79.82 Long term (current) use of aspirin; Z79.899 Other long term (current) drug therapy; Z79.84 Long term (current) use of oral hypoglycemic drugs; Z86.73 Personal history of transient ischemic attack (TIA), and cerebral infarction without residual deficits
CPT/HCPCS: 29848; 64718; 82962; J7120; J2405

== ENCOUNTER → 2024-01-30 | Outpatient (CLI) | payer MEDICAID, SELFPAY ==
[2024-01-30 12:48] LABS: Absolute Lymphocyte Count 2.45 X10^3/uL (0.83-4.51); Absolute Neutrophil Count 3.7 X10^3/uL (2.0-7.7); Basophil# 0.07 X10^3/uL; Eosinophil# 0.15 X10^3/uL; Eosinophils% 2.2 % (0-5); Hematocrit 40.6 % (40-54); Hemoglobin 13.3 g/dL (13.0-16.5); Lymphocyte # 2.45 X10^3/ul (0.83-4.51); Lymphocyte % 35.3 % (19-41); Mean Corp Hgb Conc 32.8 g/dL (32-36); Mean Corpuscular Hgb 29.4 pg (27.0-32.0); Mean Corpuscular Volume 89.8 fL (80-94); Mean Platelet Vol. 9.2 fl (6.2-12.0); Monocyte# 0.56 X10^3/uL; Monocyte% 8.1 % (0-10); NRBC Flagged by Analyzer 0 % (0-5); Neutrophil # 3.69 X10^3/uL (2.7-7.7); Neutrophil % 53.1 % (47-70); Platelet Count 344 K/mm3 (150-450); RBC Distribution Width CV 13.4 % (11.6-14.6); RBC Distribution Width SD 44.3 fl (35.1-43.9); Red Blood Count 4.52 M/mm3 (4.6-6.2); White Blood Count 6.9 K/mm3 (4.4-11.0)
[2024-01-30 12:52] LABS: Vitamin D,25 Hydroxy 27.5 ng/mL
[2024-01-30 13:05] LABS: ALB/GLOB Ratio 0.9 RATIO (0.9-2.4); AST(SGOT) 17 U/L (15-37); Alanine Aminotransfer ALT/SGPT 37 U/L (16-61); Albumin, Serum 3.7 g/dL (3.2-5.0); Alkaline Phosphatase 123 U/L (45-117); Anion Gap 6 (5-15); BUN 15 mg/dL (7-18); Calcium,Total 9.2 mg/dL (8.5-10.1); Chloride 107 mmol/L (98-107); Cholesterol 144 mg/dL (200); Creatinine, Serum 0.88 mg/dL (0.70-1.30); EST Glomerular Filtration Rate 97 mL/min (>60); Est Glom Filt Rate - Afr Amer 118 mL/min (>60); Globulin 4.3 g/dL (2.2-4.2); Glucose 94 mg/dL (74-106); High Density Lipoprotein 44 mg/dL; Sodium Level 139 mmol/L (136-145); T4 Free Direct 0.74 ng/dL (0.76-1.46); Triglycerides 109 mg/dL; Very Low Density Lipoprotein 22 mg/dL (5-40)
== END | disposition home or self-care (01) ==
PROVIDERS: PCP Nurse Practitioner Family; Visit Provider Nurse Practitioner Family
DX: I10 Essential (primary) hypertension (principal); E78.5 Hyperlipidemia, unspecified; R73.03 Prediabetes; E03.9 Hypothyroidism, unspecified
CPT/HCPCS: 36415; 80053; 80061; 82306; 84439; 84443; 85025

== ENCOUNTER → 2024-07-08 | Outpatient (CLI) | payer MEDICAID, SELFPAY ==
[2024-07-08 11:19] LABS: Hematocrit 37.6 % (40-54); Hemoglobin 12.9 g/dL (13.0-16.5); Mean Corp Hgb Conc 34.3 g/dL (32-36); Mean Corpuscular Volume 87.4 fL (80-94); Mean Platelet Vol. 9.3 fl (6.2-12.0); Platelet Count 349 K/mm3 (150-450); RBC Distribution Width CV 12.6 % (11.6-14.6); RBC Distribution Width SD 40.2 fl (35.1-43.9); White Blood Count 5.2 K/mm3 (4.4-11.0)
[2024-07-08 12:01] LABS: Anion Gap 11 (5-15); BUN 11 mg/dL (4-19); Carbon Dioxide 20.8 mmol/L (21.0-32.0); Chloride 109 mmol/L (98-108); Creatinine, Serum 0.76 mg/dL (0.70-1.20); EST Glomerular Filtration Rate 110 (>60); Glucose 139 mg/dL (70-99); Potassium 4.2 mmol/L (3.3-5.1); Sodium Level 140 mmol/L (133-145)
[2024-07-08 12:21] LABS: Syphilis Antibodies Reactive (Nonreactive)
[2024-07-09 16:09] LABS: Absolute CD4 Helper 428 /uL (359-1519); Basophils (Absolute) 0.1 x10E3/uL (0.0-0.2); Eosinophils 3 % (Not Estab.); Eosinophils (Absolute) 0.1 x10E3/uL (0.0-0.4); Hematocrit 40.2 % (37.5-51.0); Hemoglobin 13.1 g/dL (13.0-17.7); Immature Granulocytes 0 % (Not Estab.); Immature Granulocytes Absolute 0 x10E3/uL (0.0-0.1); Lymphs 40 % (Not Estab.); MCH 30.1 pg (26.6-33.0); MCHC 32.6 g/dL (31.5-35.7); MCV 92 fL (79-97); Monocytes 10 % (Not Estab.); Monocytes (Absolute) 0.5 x10E3/uL (0.1-0.9); Neutrophils 46 % (Not Estab.); Neutrophils (Absolute) 2.3 x10E3/uL (1.4-7.0); Percent % CD4 Pos. Lymph. 21.4 % (30.8-58.5); Platelets 339 x10E3/uL (150-450); RBC Count 4.35 x10E6/uL (4.14-5.80)
[2024-07-11 17:08] LABS: HIV-1 RNA by PCR, Quant. < 20 copies/mL (.)
== END | disposition home or self-care (01) ==
PROVIDERS: PCP Nurse Practitioner Family; Referring Provider Internal Medicine Infectious Disease; Visit Provider Internal Medicine Infectious Disease
DX: Z21 Asymptomatic human immunodeficiency virus [HIV] infection status (principal)
CPT/HCPCS: 36415; 80048; 85027; 86361; 86780; 87536

== ENCOUNTER → 2024-07-10 | Outpatient (CLI) | payer MEDICAID, SELFPAY ==
--- NOTE | 2024-07-10 13:31 | CT_ITS ---
PROCEDURE: LOW DOSE CT LUNG SCREENING 07/10/2024 REASON FOR EXAM: SMOKER Patient has smoked 1-1/2 pack per day for 30 years. TECHNIQUE: Low Dose CT Lung screening without contrast. Coronal and Sagittal reconstruction series were provided. One or more dose reduction techniques were used (e.g., Automated exposure control, adjustment of the mA and/or kV according to patient size, use of iterative reconstruction technique). REFERENCE LINK: [facility] Lung-RADS RADIATION DOSE SUMMARY: CTDlvol: 3.18 mGy DLP: 115.96 mGycm COMPARISON: None. FINDINGS: PULMONARY NODULES: (Only nodules >3mm are reported) Nodules described below are on series 1 unless otherwise specified. Pulmonary Nodules: No suspicious nodules seen. 2 mm calcified granuloma in the peripheral lateral aspect of the left upper lobe as seen on axial image number 49. There is a focal area of heterogeneous infiltration in the superior lateral aspect of the left lower lobe as seen on axial images number 129 through 141. This may represent a focal area of infiltration although a focus of alveolar carcinoma can not be excluded. Correlation with a PET scan recommended.. Hardware:None Lymph Nodes:Small benign-appearing mediastinal lymph nodes. Heart and Vasculature:Coronary artery calcifications are noted.Atherosclerotic calcifications of the thoracic aorta. Thoracic aorta and pulmonary arteries have normal contours; noncontrast technique limits evaluation. Coronary Artery Calcifications: Present Pleura:Unremarkable Upper Abdomen:Unremarkable Bones:Degenerative changes of the thoracic spine. CT/Low Dose CT Lung Screening IMPRESSION: Irregular airspace disease in the superior lateral aspect of the left lobe as d escribed. Coronary artery calcification (CAC) is is present Lung-RADS Category: 4A SUSPICIOUS. RECOMMEND 3 MONTH LDCT; PET/CT MAY BE CONSID ERED IF THERE IS A >=8MM SOLID NODULE OR SOLID COMPONENT. Other Significant Findings: None. Reading Location: [facility]
[2024-07-10 18:04] LABS: Cholesterol 143 mg/dL (<=200); High Density Lipoprotein 41 mg/dL; Low Density Lipoprotein Calc. 75 mg/dL; Triglycerides 133 mg/dL; Very Low Density Lipoprotein 27 mg/dL (5-40); Vitamin D,25 Hydroxy 39.2 ng/mL (30-100); cholesterol:hdl ratio screen 3.48
[2024-07-10 19:27] LABS: Hemoglobin A1c 7.1 % (<=5.6)
[2024-07-11 09:22] LABS: PSA,Total - Annual Screen 0.59 ng/mL (0.02-4.00)
== END | disposition home or self-care (01) ==
PROVIDERS: PCP Nurse Practitioner Family; Referring Provider Nurse Practitioner Acute Care; Visit Provider Nurse Practitioner Acute Care
DX: F17.210 Nicotine dependence, cigarettes, uncomplicated (principal); E78.5 Hyperlipidemia, unspecified; R73.03 Prediabetes; E55.9 Vitamin D deficiency, unspecified; E03.9 Hypothyroidism, unspecified; Z12.5 Encounter for screening for malignant neoplasm of prostate
CPT/HCPCS: 84153; 36415; 71271; 80061; 82306; 83036; 84439; 84443; G0103

== ENCOUNTER → 2024-07-24 | Outpatient (CLI) | payer MEDICAID, SELFPAY | END | disposition home or self-care (01) | LOC: PSN 12:09 | PROVIDERS: PCP Nurse Practitioner Family; Referring Provider Nurse Practitioner Acute Care; Visit Provider Nurse Practitioner Acute Care | DX: Z72.0 Tobacco use (principal) | CPT/HCPCS: 94060; 94726; 94729 ==

== ENCOUNTER → 2024-07-26 | Outpatient (CLI) | payer MEDICAID, SELFPAY | END | disposition home or self-care (01) | LOC: SL 10:40 | PROVIDERS: PCP Nurse Practitioner Family; Visit Provider Nurse Practitioner Acute Care | DX: Z00.00 Encounter for general adult medical examination without abnormal findings (principal) ==

== ENCOUNTER → 2024-07-30 | Outpatient (CLI) | payer MEDICAID, SELFPAY ==
--- NOTE | 2024-07-30 10:00 | PET_ITS ---
PROCEDURE: PET/CT TUMOR BASE -THIGH INIT 07/30/2024 REASON FOR EXAM: 49 y/o M with ABNORMAL FINDINGS IN LUNG FIELD TECHNIQUE: Following the intravenous administration of radionucleotide, image acquisition on a dedicated PET/CT unit was performed at one hour post injection. A preliminary CT study encompassing the Skull base, neck, chest, abdomen, pelvis, and proximal thighs was performed for purposes of attenuation correction and anatomic localization. The proximal thighs were also included. The patient's blood glucose level was 93 mg/dL (allowable range: 50-180 mg/dL). RADIOPHARMACEUTICAL: 12.07 mCi 18F-FDG (Fluorodeoxyglucose F18) IV was injected into he patient. RADIATION DOSE SUMMARY: Effective Dose: Approximately 7 mSv for a standard whole-body PET scan Organ Doses: Varies by organ, with higher doses typically to the bladder, liver, and brain COMPARISON: COMPARISON FROM CT, PET OR OTHER PERTINENT EXAMS: Chest CT of 07/10/2024. FINDINGS: Physiologic uptake: There may be expected metabolic uptake within the brain, tongue and floor of the mouth and larynx/vocal cords, heart, robert (many normal individuals have hilar uptake in less than 3 nodes with mildly avid hilar nodes less than 2.7 SUV), liver and spleen, system, and GI tract and symmetric muscle uptake. FDG AVID AND NON-AVID LESIONS. Reported avid SUV values (g/mL*) are maximum SUV. NECK: There are no significant neck abnormalities. CHEST: Chest wall- There are no significant chest wall abnormalities. Axilla- There are no significant axillary abnormalities. Lung parenchyma- In the area left lower lobe density seen in the recent chest CT of 07/10/2024, metabolic activity is seen, with SUV max of 2.8. Differential diagnosis includes infection/inflammation and neoplasm. No other focus abnormal uptake is seen within the thorax. Mediastinum- There are no significant hilar or mediastinal adenopathy. Pleura- There are no significant pleural abnormalities. Mild coronary artery calcification is noted. ABDOMEN: Stomach- No significant abnormalities. Liver- No significant abnormalities. Spleen- No significant abnormalities. Pancrease- No significant abnormalities. Kidneys- No significant abnormalities. Bowel- Normal bowel activity. Spine- No significant abnormalities. PELVIS: Bowel- Normal physiologic bowel activity is identified. Masses- There are no pelvic masses. LOWER EXTREMITIES: Bones- With the use of bone window settings, there are no osteolytic or osteoblastic lesions. There are no FDG avid lesions within the visualized portion of the axial skeleton. PET/PET/CT Tumor Base -Thigh Init IMPRESSION: FDG avid- In the area left lower lobe density seen in the recent chest CT of 07/10/2024, metabolic activity is seen. Differential diagnosis includes infection/inflammation and neoplasm. Recommend follow up imaging in 3 months versus bronchoscopic evaluation. Other: Mild coronary artery calcification. Please note the low-dose CT scan was performed to facilitate PET image reconstr uction and anatomic localization and does not replace a diagnostic CT. Any diagnostic CT requested and performed at the time of the PET will be reported separately. Reading Location: [id number]
== END | disposition home or self-care (01) ==
LOC: ONC 09:32
PROVIDERS: PCP Nurse Practitioner Family; Referring Provider Nurse Practitioner Acute Care; Visit Provider Nurse Practitioner Acute Care
DX: R91.8 Other nonspecific abnormal finding of lung field (principal); C03.9 Malignant neoplasm of gum, unspecified
CPT/HCPCS: 78815; A9552

== ENCOUNTER → 2024-11-11 | Outpatient (CLI) | payer MEDICAID, SELFPAY ==
--- NOTE | 2024-11-11 07:56 | CT_ITS ---
PROCEDURE: CHEST WITHOUT CONTRAST 11/11/2024 REASON FOR EXAM: LUNG NODULE IN SMOKER Prior PET scan. TECHNIQUE: Chest CT without contrast. Coronal and Sagittal reconstruction series were provided. One or more dose reduction techniques were used (e.g., Automated exposure control, adjustment of the mA and/or kV according to patient size, use of iterative reconstruction technique RADIATION DOSE SUMMARY: CTDlvol: 18.09 mGy DLP: 668.85 mGycm COMPARISON: Prior study dated July 10, 2024. FINDINGS: Hardware: None Lymph nodes: Small benign-appearing bilateral axillary lymph nodes. Stable small benign-appearing mediastinal lymph nodes. Heart and Vasculature: The heart is nonenlarged. Mild atherosclerotic calcification of the aortic arch. Coronary Artery Calcifications: Present Lungs and Airways: Calcified granuloma in the medial left upper lobe as seen on axial image number 49 stable calcified granuloma in the upper lateral aspect of the left upper lobe. The previously seen focal area of ground-glass appearance in the superior lateral aspect of the left lower lobe as almost completely resolved. Mild residual linear changes persist suggestive of possible scarring. No new infiltrate is seen. Pleura: No pleural effusion. Upper Abdomen: Unremarkable. Gallbladder is not visualized. Bones: Degenerative changes of the thoracic spine. CT/Chest without Contrast IMPRESSION: Coronary artery calcification (CAC) is is present Stable small calcific granuloma in the left upper lobe. Interval improvement in the focal area of ground-glass appearance in the periph eral lateral aspect of the left lower lobe with findings suggestive of mild residual scarring. Reading Location: [place] [id number]
== END | disposition home or self-care (01) ==
LOC: CT 07:52
PROVIDERS: PCP Nurse Practitioner Family; Referring Provider Nurse Practitioner Acute Care; Visit Provider Nurse Practitioner Acute Care
DX: R91.1 Solitary pulmonary nodule (principal)
CPT/HCPCS: 71250

== ENCOUNTER → 2025-01-09 | Outpatient (CLI) | payer MEDICAID, SELFPAY ==
[2025-01-09 15:30] LABS: Hematocrit 39.6 % (40-54); Hemoglobin 13.4 g/dL (13.0-16.5); Mean Corp Hgb Conc 33.8 g/dL (32-36); Mean Corpuscular Volume 87.6 fL (80-94); Mean Platelet Vol. 9.4 fl (6.2-12.0); Platelet Count 349 K/mm3 (150-450); RBC Distribution Width CV 12.6 % (11.6-14.6); RBC Distribution Width SD 40.0 fl (35.1-43.9); Red Blood Count 4.52 M/mm3 (4.6-6.2); White Blood Count 5.0 K/mm3 (4.4-11.0)
[2025-01-09 16:11] LABS: Anion Gap 12 (5-15); BUN 20 mg/dL (4-19); BUN/Creat Ratio 22.9 RATIO (10-20); Calcium,Total 9.7 mg/dL (7.6-11.0); Carbon Dioxide 22.5 mmol/L (21.0-32.0); Chloride 106 mmol/L (98-108); Glucose 92 mg/dL (70-99); Potassium 4.5 mmol/L (3.3-5.1)
[2025-01-09 16:49] LABS: Syphilis Antibodies Reactive (Nonreactive)
[2025-01-13 15:08] LABS: HIV-1 RNA by PCR, Quant. 40 copies/mL (.); LOG10 HIV-1 RNA 1.602 (.); RPR Reactive (Non Reactive); RPR, QUANT. 1:32 titer (NonRea<1:1); TREPONEMA PALLIDUM ANTIBODIES Reactive (Non Reactive)
[2025-01-13 16:09] LABS: Hematocrit 42.8 % (37.5-51.0); Hemoglobin 13.8 g/dL (13.0-17.7); MCH 29.6 pg (26.6-33.0); MCHC 32.2 g/dL (31.5-35.7); MCV 92 fL (79-97); Percent % CD4 Pos. Lymph. 26.4 % (30.8-58.5); RDW 13.0 % (11.6-15.4)
== END | disposition home or self-care (01) ==
LOC: LAB 14:19
PROVIDERS: PCP Nurse Practitioner Family; Referring Provider Internal Medicine Infectious Disease; Visit Provider Internal Medicine Infectious Disease
DX: Z21 Asymptomatic human immunodeficiency virus [HIV] infection status (principal)
CPT/HCPCS: 36415; 80048; 85027; 86361; 86780; 87536